=== PATIENT | male | born 1950 | race Caucasian/White ===

== ENCOUNTER 2016-05-03 18:09 | Inpatient (IN) | payer OTHER ==
[~2016-05-03] VITALS: Ht 177.8 cm; Wt 92.3 kg
--- NOTE | 2016-05-03 18:45 | ED AMS/SEIZURE/WEAK/DIZZY ---
History of Present Illness General Chief Complaint: Altered Mental Status Stated Complaint: CONFUSED, AMS Source: patient, family, old records, EMS Exam Limitations: clinical condition Vital Signs & Intake/Output Vital Signs & Intake/Output Vital Signs Date Time Temp Pulse Resp B/P Pulse O2 O2 Flow FiO2 Ox Delivery Rate 05/03 1942 Room Air 3.0L 05/03 1857 97.2 98 22 159/98 Nasal 3.0L Cannula Allergies Coded Allergies: NO KNOWN ALLERGIES (06/07/13) Reconcile Medications Aspirin (Aspirin*) 325 MG TABLET 1 TAB PO DAILY HEART/BLOOD (Reported) Lisinopril/Hydrochlorothiazide (Lisinopril-Hctz 20-25 MG Tab) 20 MG-25 MG TABLET 1 TAB PO DAILY BP (Reported) Triage Note: TRIAGE: PT BIBA FROM HOME S/P BEING FOUND CONFUSED AND DISORIENTED BY FAMILY. LAST SEEN AT [facility] AT 04:30 THIS MORNING. PER REPORT OF EMS PT HAS HX OF [facility] WITH CARDIAC STENT AND HAS BEEN NONCOMPLIANT WITH B/P MEDS BECAUSE HE DIDN'T LIKE THE WAY THEY WERE WORKING. PT ALSO REPORTED TO HAVE CELLULITIS AND NECROSIS BLE. R/A SATS REPORTED LOW 90'S WHICH IMPROVED TO 94-96% ON 4L VIA N/C. PT IS ALSO REPORTED TO BE HAVING DARK/TARRY STOOLS, UNKNOWN HOW LONG. F/S 103 FOR EMS. Triage Nurses Notes Reviewed? yes Unable To Obtain Hx Due To: patient confusion Onset: 2 days Duration: day(s):, constant, continues in ED, getting worse Timing: recent history Injury Environment: home Severity: severe No Modifying Factors: none HPI: 2 days prior to admission patient is developed increasing confusion weakness and black tarry stool. Per report he has not sought medical attention due to lack of insurance with chronic smoking previous alcohol abuse bilateral leg dermatitis and weeping. He denies fever chills nausea vomiting chest pain shortness of breath headache. Current history is unclear because auto hiker is unavailable. (PARTH GROVE MD) Past History Medical History Any Pertinent Medical History? see below for history Surgical History Surgical History: AAA repair Psychosocial History What is your primary language [place] Family History Hx Contributory? No (PARTH GROVE MD) Review of Systems Review of Systems Constitutional: Reports: see HPI, weakness. EENTM: Reports: no symptoms. Respiratory: Reports: no symptoms. Cardiovascular: Reports: no symptoms. GI: Reports: no symptoms. Genitourinary: Reports: no symptoms. Musculoskeletal: Reports: no symptoms. Skin: Reports: see HPI, rash. Neurological/Psychological: Reports: see HPI, confusion, weakness. Hematologic/Endocrine: Reports: no symptoms. Immunologic/Allergic: Reports: no symptoms. All Other Systems: Reviewed and Negative (PARTH GROVE MD) Physical Exam Physical Exam General Appearance: well developed/nourished, alert, awake, severe distress, obese Head: atraumatic, normal appearance Eyes: Bilateral: normal appearance, PERRL, EOMI. Ears, Nose, Throat: normal pharynx, normal ENT inspection Neck: normal inspection, supple, full range of motion, no midline tenderness Respiratory: chest non-tender, decreased breath sounds Cardiovascular: regular rate/rhythm, normal peripheral pulses, tachycardia, norml femoral pulses equa Peripheral Pulses: 4+ carotid (R), 4+ carotid (L), 1+ radial (R), 1+ radial (L) Gastrointestinal: normal bowel sounds, soft, non-tender, no organomegaly Back: normal inspection, normal range of motion, no vertebral tenderness Extremities: normal range of motion, pedal edema, stasis dermatitis with ulcerations Neurologic/Psych: awake, justice court judge II-XII nml as tested, motor weakness Reflexes: 2+: bicep (R), bicep (L). Skin: rash Lymphatic: no anterior cervical jean Core Measures ACS in differential dx? Yes CVA/TIA Diagnosis: No Severe Sepsis Present: No Septic Shock Present: No (PARTH GROVE MD) Progress Differential Diagnosis: arrythmia, dehydration, electrolyte imbalance, hypoglycemia, pneumonia, sepsis Plan of Care: Orders Procedure Date/time Status Nothing by Mouth 05/04 B Active LACTIC ACID 05/[address] ABD & PELVIS W/O IV CONTRAS 05/03 2002 Active Saline Lock 05/03 1949 Active Misc Message 05/03 1949 Active ED Holding Orders 05/03 1949 Active Admit to inpatient 05/03 1949 Active Vital Signs 05/03 1949 Active Code Status 05/03 1949 Active CULTURE,URINE 05/03 1850 Active URINALYSIS 05/03 185 Complete Admit to inpatient 05/03 1830 Active BLOOD CULTURE 05/03 1827 Active TROPONIN LEVEL 05/03 1827 Complete PARTIAL THROMBOPLASTIN TIME 05/03 1827 Complete PROTHROMBIN TIME 05/03 1827 Complete AMMONIA 05/03 1827 Complete LIPASE 05/03 1827 Complete LACTIC ACID 05/03 1827 Complete COMPREHENSIVE METABOLIC PANEL 05/03 1827 Complete CBC WITHOUT DIFFERENTIAL 05/03 1827 Complete AMYLASE 05/03 1827 Complete TYPE & SCREEN (NOT X-MATCH) 05/03 1827 Complete ARTERIAL BLOOD GAS (GEN) 05/03 1824 Complete EKG 05/03 1823 Active Current Medications Sig/Fidelina Start time Last Medication Dose Stop Time Status Admin Azithromycin 500 MG ONCE ONE 05/03 2015 AC (Zithromax) 05/03 2114 Sodium Chloride 250 ML (Normal Saline 0.9%) Ceftriaxone Sodium 1,000 MG ONCE ONE 05/03 2015 AC (Rocephin) 05/03 2016 Methylprednisolone 125 MG ONCE ONE 05/03 2015 AC (Solu Medrol) 05/03 2016 Sodium Chloride 1,000 ML BOLUS ONE 05/03 193 AC (Normal Saline 0.9%) 05/03 2029 Laboratory Tests 05/03/16 1855: pH 7.38, pCO2 25 L, pO2 129 H, HCO3 14 L, ABG O2 Sat (Measured) 98.0, P-50 ( Temp Corrected) YES, Carboxyhemoglobin 0.5 L, O2 Concentration % 4L, Temperature 99.1, O2 Delivery Method NC, Phlebotomy Draw Site RIGHT RADIAL 05/03/16 184: Urine Color YEL, Urine Clarity CLEAR, Urine pH 6.0, Ur Specific [place] >= 1.030 , Urine Protein >=300 H, Urine Ketones NEG, Urine Nitrite NEG, Urine Bilirubin NEG, Urine Urobilinogen 0.2, Ur Leukocyte Esterase NEG, Ur Microscopic SEDIMENT EXAMINED, Urine RBC FEW H, Urine WBC RARE, Ur Epithelial Cells RARE, Urine Hemoglobin SMALL H, Urine Glucose NEG 05/03/16 1830: Anion Gap 10, Estimated GFR 41 L, BUN/Creatinine Ratio 31.8 H, Glucose 85, Lactic Acid 1.2, Calcium 9.0, Total Bilirubin 0.8, AST 66 H, ALT 76 H, Alkaline Phosphatase 220 H, Ammonia < 9 L, Troponin I 0.04, Total Protein 6.0 L, Albumin 3.0 L, Globulin 3.0, Albumin/Globulin Ratio 1.0 L, Amylase 158 H, Lipase 799 H, PT 10.9, INR 1.04, APTT 32, CBC w Diff MAN DIFF ORDERED, RBC 5.11 , MCV 87.8, MCH 29.0, RDW 15.1 H, MPV 6.7 L, Gran % 91.3 H, Lymphocytes % 5.2 L, Monocytes % 2.9, Eosinophils % 0.1, Basophils % 0.5, Absolute Granulocytes 14.0 H, Segmented Neutrophils 90 H, Band Neutrophils 3, Absolute Lymphocytes 0.8 L, Lymphocytes 4 L, Monocytes 3, Absolute Monocytes 0.4, Absolute Eosinophils 0, Absolute Basophils 0.1, Platelet Estimate ADEQUATE, PUBS MCHC 33.0 Microbiology 05/03 1925 BLOOD: Blood Culture - RECD 05/03 1845 URINE ROUT: Urine Culture - RECD 05/03 1830 BLOOD: Blood Culture - RECD Diagnostic Imaging: Viewed by Me: Radiology Read. Discussed w/RAD: Radiology Read. Initial ED EKG: normal axis, normal intervals, normal p-waves, normal QRS complex, normal sinus rhythm Prior EKG: unchanged Rhythm Strip: sinus tachycardia Hand-Off Endorsed To: VETO CRESPO MD Endorsed Time: 1916 Pending: labs, Xray (PARTH GROVE MD) CXR Impression: atelectasis vs infiltrate... full report below. Comments: PATIENT: JOSUÉ NOYOLA PRESENT AGE: 66 PATIENT ACCOUNT NO: [id number] : 52 LOCATION: [facility] ORDERING PHYSICIAN: PARTH GROVE MD SERVICE DATE: 05/03/16 EXAM TYPE: RAD - XRY-PORTABLE CHEST XRAY EXAMINATION: XR PORTABLE CHEST CLINICAL INFORMATION: 66-year-old man with rigors and confusion. COMPARISON: None. TECHNIQUE: Portable view of the chest was obtained. FINDINGS: Streaky linear opacities at the left lung base are associated with volume loss and most likely reflect subsegmental atelectasis. Early superimposed consolidation is also possible however. The right lung is clear. There is mild cardiomegaly. There are no large pleural effusions. IMPRESSION: Nonspecific opacities at the left lung base most likely reflect atelectasis, although early consolidation could appear similarly. DICTATED BY: RONALD LOPEZ MD DATE/TIME DICTATED:05/03/161934 GARAGE DOOR SERVICE TECHNICIAN:ANUPAMA DATE/TIME TRANSCRIBED:05/03/161934 CONFIDENTIAL, DO NOT COPY WITHOUT APPROPRIATE AUTHORIZATION. <Electronically signed in Other Vendor System> SIGNED BY: JESSICA AYOUB,RONALD 05/03/161939 (ZAK AYOUB,VETO Ellis) Departure Departure Disposition: STILL A PATIENT Condition: Stable Referrals: CRYSTAL AYOUB,JARAD Morales (PCP/Family) Referred to [facility] as new patient No Departure Forms: Customer Survey General Discharge Information (PERFECTO AYOUB,PARTH) Departure Clinical Impression Primary Impression: Altered mental status Secondary Impressions: Acute hyperkalemia, COPD exacerbation, Hyponatremia syndrome, Peripheral vascular disease, Pneumonia Admission Note Spoke With: SAUD BYNUM MDPaulie Documentation of Exam: Documentation of any treatments & extenuating circumstances including Concerns Regarding Discharge (functional status, medication knowledge or non-compliance, living conditions, etc.) that warrant an admission rather than observation: pt with multiple issues: hyponatremia (sodium 118), hyperkalemia (k+ 7.3), renal failure, copd exacerbation, pvd, merits icu admission for electrolyte management. (ZAK AYOUB,VETO Ellis) Critical Care Note Critical Care Note Critical Care Time: 30-74 min (VETO CRESPO MD)
[2016-05-03] MEDS ORDERED: LISINOPRIL-HCT1 EAC1 PO (18:53)
[2016-05-03] MEDS ORDERED: ASPIRIN325 M2 PO (18:54)
[2016-05-03 19:00] LABS: ABSOLUTE BASOPHIL COUNT 0.1 /CUMM (0.0-0.2); ABSOLUTE EOSINOPHIL COUNT 0 /CUMM (0.0-0.7); ABSOLUTE LYMPH COUNT 0.8 /CUMM (1.2-3.4); ABSOLUTE MONOCYTE COUNT 0.4 /CUMM (0.10-0.60); BASOPHIL % 0.5 % (0.0-2.0); EOSINOPHIL % 0.1 % (0-5); GRANULOCYTE % 91.3 % (42.2-75.2); HEMATOCRIT 44.9 % (42-52); MEAN CORPUSCULAR VOLUME 87.8 FL (80.0-94.0); MEAN PLATELET VOLUME 6.7 FL (7.4-10.4); PLATELET COUNT 402 /CUMM (130-400); RBC DISTRIBUTION WIDTH 15.1 % (11.5-14.5); RED BLOOD CELL CT 5.11 /CUMM (4.70-6.10); WHITE BLOOD CELL COUNT 15.3 /CUMM (4.8-10.8)
[2016-05-03 19:06] LABS: PT 10.9 SEC (9.4-12.5); PTT 32 SEC (25-37)
--- NOTE | 2016-05-03 19:40 | RADIOLOGY REPORT ---
EXAMINATION: XR PORTABLE CHEST CLINICAL INFORMATION: 66-year-old man with rigors and confusion. COMPARISON: None. TECHNIQUE: Portable view of the chest was obtained. FINDINGS: Streaky linear opacities at the left lung base are associated with volume loss and most likely reflect subsegmental atelectasis. Early superimposed consolidation is also possible however. The right lung is clear. There is mild cardiomegaly. There are no large pleural effusions. IMPRESSION: Nonspecific opacities at the left lung base most likely reflect atelectasis, although early consolidation could appear similarly.
--- NOTE | 2016-05-03 21:00 | CT SCAN REPORT ---
EXAMINATION: CT ABDOMEN AND PELVIS WITHOUT CONTRAST CLINICAL INFORMATION: 66-year-old male presents for evaluation of pancreatitis. COMPARISON: CT of abdomen pelvis of 06/07/2013. TECHNIQUE: Multidetector volumetric imaging was performed from the superior aspect of the liver through the pubic symphysis. Sagittal and coronal reformatted images were obtained on the technologist's workstation. DLP: 505 mGy-cm. FINDINGS: LUNG BASES: There is centrilobular emphysema. There is hazy opacity suggestive of atelectasis in the dependent aspect of each lower lobe. Aortic valve calcifications are seen. Cardiomegaly. No pericardial or pleural effusion. LIVER, GALLBLADDER, AND BILIARY TREE: Unremarkable for a noncontrast examination. PANCREAS: Pancreas has normal attenuation on these noncontrast images. No imaging findings to suggest acute pancreatitis. No pancreatic ductal dilatation, peripancreatic edema or retroperitoneal fluid collection. SPLEEN: Unremarkable. ADRENAL GLANDS: Unremarkable. KIDNEYS AND URETERS: 1.4 cm cortical cyst at the upper pole of the right kidney. No hydronephrosis or nephrolithiasis. There is mild atrophy of the right kidney. The right kidney measures approximately 10.6 cm in length and left kidney 13.8 cm in length. The ureters are normal in caliber. BLADDER: The bladder is decompressed by a Espinoza catheter. GASTROINTESTINAL TRACT: Bowel loops are normal in size. There are scattered diverticula of the sigmoid colon without diverticulitis. No acute findings along the gastrointestinal tract. ABDOMINAL WALL: Unremarkable. LYMPH NODES: No pathologic sized lymph nodes within the abdomen or pelvis. VASCULAR: There is an aortoiliac stent graft in place. The [place] abdominal aorta measures up to 6.5 cm transverse, 6.6 cm AP. The abdominal aorta was ruptured on 06/07/2013 at which time it measured up to 9.6 cm transverse and 8.5 cm AP. There is no periaortic inflammatory change or retroperitoneal hemorrhage. PELVIC VISCERA: Prostate gland is grossly unremarkable. No pelvic free fluid. OSSEOUS STRUCTURES: Within the lumbar spine, disc degeneration is most advanced at L2-L3 where there is moderate loss of disc space, endplate sclerosis, vacuum disc phenomenon and traction osteophyte formation. No aggressive bone lesions. IMPRESSION: 1. No acute imaging findings within the abdomen or pelvis. There is no imaging evidence of pancreatitis in this patient who presents for evaluation of pancreatitis. 2. Sigmoid colon diverticulosis without diverticulitis. 3. The previously ruptured infrarenal abdominal aortic aneurysm has been treated with an aortoiliac stent graft and the [place] abdominal aorta has decreased in size compared to 06/07/2013.
--- NOTE | 2016-05-03 21:49 | Admission Certification ---
Admission Certification Certification Statement - As attending physician, I certify that at the time of - admission, based on clinical presentation, severity of - symptoms, need for further diagnostic testing and - therapeutic interventions, and risk of adverse outcomes - without in-hospital treatment, in my clinical assessment, - this patient requires an acute hospital stay for a minimum - of two nights or longer. I have also considered psychsocial - factors such as support system, advanced age, financial - issues, cognitive issues, and failed out-patient treatments, - past re-admission history, safety of patient, and lack of - compliance as applicable. Specific rationale supporting this admission is: Altered mental status, acute hyponatremia, hyperkalemia. Hypoxic respiratory failure 2/2 community acquired pneumonia and COPD. Bilateral LE wounds/ necrosis needs Vascular and Wound consults.
--- NOTE | 2016-05-03 22:51 | History & Physical ---
LEOLA BRAND 05/03/16 2217: General Information and HPI Source of Information: patient, family Exam Limitations: no limitations History of Present Illness: He is 66-year-old man with past medical history of hypertension, COPD and abdominal aortic aneurysm rupture status post repair and stent placement at [facility] in 2013 BIBA from home after his son noticed that he is looking pale and confused. Patient lives with his son who last seen him oriented at 4 AM before going to his work. According to son when he came back from his job at 4 PM he found him confused. Patient denies any dizziness, lightheadedness, fall, chest pain or discomfort, shortness of breath, palpitations, nausea, vomiting, abdominal pain, diarrhea, constipation, any urinary symptoms. The son noticed black tarry stools for the last 3 days. No history of weight loss. Patient is very noncompliant with his medications. He only sees his PCP Dr. Turner and lost saw him 5 months ago per son. He doesn't see any specialist as an outpatient. He has not been taking any medication for last 3 months. Normally he walks with walker at home. There is nobody at home to help him when son Leaves for his work. According to son he did not eat or drink whole day today. He is current every day smoker. Smokes less than half pack per day for last 40 years. He used to drink 6 packs on weekends and quit 4-5 months ago. Allergies/Medications Allergies: Coded Allergies: NO KNOWN ALLERGIES (06/07/13) Home Med list Aspirin (Aspirin*) 325 MG TABLET 1 TAB PO DAILY HEART/BLOOD (Reported) Lisinopril/Hydrochlorothiazide (Lisinopril-Hctz 20-25 MG Tab) 20 MG-25 MG TABLET 1 TAB PO DAILY BP (Reported) Compliance With Home Meds: POOR Past History Travel History Traveled to [place] past 21 day No Medical History Cardiovascular: HYPERTENSION Respiratory: COPD Surgical History Surgical History: AAA repair Past Family/Social History Family History Relations & Conditions if any FATHER ( of [place]). MOTHER (leukemia). Psychosocial History Where do you live? Home Who Do You Live With? child Services at Home: None Primary Language: Grenadian Smoking Status: Current Everyday Smoker ETOH Use: denies use Illicit Drug Use: denies illicit drug use Living Will? no Functional Ability ADLs Independent: dressing, eating, toileting, bathing. Ambulation: walker IADLs Independent: telephone. Needs Assist: shopping, housework, food prep, transportation. Review of Systems Review of Systems Constitutional: Reports: see HPI. Exam & Diagnostic Data Last 24 Hrs of Vital Signs/I&O Vital Signs Date Time Temp Pulse Resp B/P Pulse O2 O2 Flow FiO2 Ox Delivery Rate 05/03 2311 92 20 129/86 98 Nasal 3.0L Cannula 05/03 2149 98 Nasal 3.0L Cannula 05/03 2142 98 20 122/75 98 Nasal 3.0L Cannula 05/03 2033 97.2 93 20 143/79 Nasal 3.0L Cannula 05/03 1942 Room Air 3.0L 05/03 1857 97.2 98 22 159/98 Nasal 3.0L Cannula Physical Exam General Appearance Alert, Oriented X3, Cooperative, No Acute Distress HEENT dry mucous membranes Neck No JVD Cardiovascular Regular Rate, grade 1 systolic murmur Lungs decreased air entry Abdomen Normal Bowel Sounds, Soft, No Tenderness Neurological Normal Speech, Strength at 5/5 X4 Ext Extremities B/L LE swelling with redness, oozing necrotic wounds, non tender, pulses implapable Last 24 Hrs of Labs/Abhay: Laboratory Tests 05/03/162140: CBC w Diff Cancelled, WBC Cancelled, RBC Cancelled, Hgb Cancelled, Hct Cancelled , MCV Cancelled, MCH Cancelled, RDW Cancelled, Plt Count Cancelled, MPV Cancelled, PUBS MCHC Cancelled 05/03/161854: pH 7.38, pCO2 25 L, pO2 129 H, HCO3 14 L, ABG O2 Sat (Measured) 98.0, P-50 ( Temp Corrected) YES, Carboxyhemoglobin 0.5 L, O2 Concentration % 4L, Temperature 99.1, O2 Delivery Method NC, Phlebotomy Draw Site RIGHT RADIAL 05/03/161844: Urine Color YEL, Urine Clarity CLEAR, Urine pH 6.0, Ur Specific [place] >= 1.030 , Urine Protein >=300 H, Urine Ketones NEG, Urine Nitrite NEG, Urine Bilirubin NEG, Urine Urobilinogen 0.2, Ur Leukocyte Esterase NEG, Ur Microscopic SEDIMENT EXAMINED, Urine RBC FEW H, Urine WBC RARE, Ur Epithelial Cells RARE, Urine Hemoglobin SMALL H, Urine Glucose NEG 05/03/161844: Urine Opiates Screen < 100.00, Methadone Screen < 40, Barbiturate Screen < 60, Ur Phencyclidine Scrn < 6.00, Amphetamines Screen < 100, U Benzodiazepines Scrn < 85, Urine Cocaine Screen < 50, Urine Cannabis Screen < 5.00, Urine Osmolality 562, Ur Random Creatinine 105.5, Ur Random Sodium < 5 L, Ur Random Potassium 76.7, Fraction Sodium Excret ND 05/03/161829: Anion Gap 10, Estimated GFR 41 L, BUN/Creatinine Ratio 31.8 H, Glucose 85, Serum Osmolality 281 L, Lactic Acid 1.2, Calcium 9.0, Total Bilirubin 0.8, AST 66 H, ALT 76 H, Alkaline Phosphatase 220 H, Ammonia < 9 L, Troponin I 0.04, Total Protein 6.0 L, Albumin 3.0 L, Globulin 3.0, Albumin/Globulin Ratio 1.0 L, Amylase 158 H, Lipase 799 H, PT 10.9, INR 1.04, APTT 32, CBC w Diff MAN DIFF ORDERED, RBC 5.11, MCV 87.8, MCH 29.0, RDW 15.1 H, MPV 6.7 L, Gran % 91.3 H, Lymphocytes % 5.2 L, Monocytes % 2.9, Eosinophils % 0.1, Basophils % 0.5, Absolute Granulocytes 14.0 H, Segmented Neutrophils 90 H, Band Neutrophils 3, Absolute Lymphocytes 0.8 L, Lymphocytes 4 L, Monocytes 3, Absolute Monocytes 0.4, Absolute Eosinophils 0, Absolute Basophils 0.1, Platelet Estimate ADEQUATE, PUBS MCHC 33.0, Acetaminophen < 10.0 L, Serum Alcohol < 10.0 Microbiology 05/03 2300 LOWER RESP: Respiratory Culture - ORD 05/03 2300 LOWER RESP: Gram Stain - ORD 05/03 2250 UPPER RESP: Surveillance Culture - ORD 05/03 2250 GI: Surveillance Culture - ORD 05/03 1925 BLOOD: Blood Culture - RECD 05/03 1845 URINE ROUT: Urine Culture - RECD 05/03 1830 BLOOD: Blood Culture - RECD Diagnostic Data EKG Results Normal sinus rhythm with heart rate 93. No acute ST-T wave changes. QTC 493 Assessment/Plan Assessment: His 66-year-old man with past medical history of hypertension and abdominal aortic aneurysm rupture status post repair and stent placement at [facility] in 2013 BIBA from home after his son noticed that he is looking pale and confused. Upon admission his temperature was 97.2, respiratory rate 22, heart rate 98, blood pressure 159/98 and oxygen saturation was in low 90s on room air and he was put on 4 L of nasal cannula. Oxygen saturation with oxygen was 94-96%. He was found to have WBC count 15.3, sodium 118, potassium 7.2, BUN 54, creatinine 1.7, AST 66, ALT 76, alkaline phosphatase 220, lipase 799, amylase 158. ABG showed pH 7.38, PCO2 25 and bicarbonate 14, oxygen saturation 98% on 4 L. Normal coags and negative U tox. UA was normal. Chest x-ray showed nonspecific opacities at the left lung base. CT abdomen and pelvis did not show any evidence of acute pancreatitis. CT chest, head CT and right upper quadrant ultrasound pending In ER he got dextrose 50%, 10 units of insulin, calcium gluconate, Kayexalate, 2 L of normal saline bolus, ceftriaxone, azithromycin, Solu-Medrol and vancomycin He was found to have guaiac-positive stool. Problem list 1. Altered mental status secondary to ongoing infection, bilateral lower extremity cellulitis and questionable pneumonia, and hyponatremia 2. Hyponatremia, sodium 118, most likely secondary to dehydration and poor oral intake 3. Severe hyperkalemia, potassium 7.2 4. Black tarry heme-positive stools with stable H&H right now 5. Transaminitis of unknown etiology 6. Bilateral lower extremity swelling and redness with necrotic oozing wounds, non tender most likely secondary to severe peripheral vascular disease. Swelling could be because of chronic kidney disease and proteinuria. ? Element of heart failure (no previous records). Will also treat for cellulitis as is evident pussy discharge. 7. History of COPD not on supplemental oxygen at home 8. Acute on chronic kidney disease secondary to dehydration and poor oral intake Plan We will admit patient in ICU. He is alert awake and oriented right now. We will continue D5 half-normal saline at rate of 100 mL per hour. We'll monitor sodium closely. For hyperkalemia he has already been given dextrose plus insulin, calcium gluconate and Kayexalate. We will monitor her potassium levels closely. No changes on EKG so far. Will watch for any abnormal rhythms. Serial EKGs and troponins. Echocardiogram. We will continue supplemental oxygen. Will try to keep oxygen saturation more than 92%. TRC nebs. Incentive spirometry. He does not look like in COPD exacerbation. Will treat him for pneumonia as there are nonspecific opacities at the left lung base. Will do CT chest without contrast to better see any lung pathology. Questionable PE. Consider bilateral lower extremity Doppler ultrasound and VQ scan. For black tarry stools I spoke to Dr. Valles. He recommended to keep patient nothing by mouth and CBC monitoring. He will see patient tomorrow. Will avoid all NSAIDs. Will start patient on IV Protonix 40 mg daily. H&H is stable right now. Will start patient on antibiotics for bilateral lower extremities cellulitis. Wound consult in a.m. Suspicion for severe peripheral vascular disease. Will call vascular consult in a.m. We will monitor kidney functions and avoid nephrotoxins. Will follow-up CT head, CT chest and right upper quadrant ultrasound. Subcutaneous heparin for DVT prophylaxis. Will DC heparin if hematocrit drops. DNR/DNI As Ranked By This Provider Problem List: 1. Hyponatremia syndrome 2. Acute hyperkalemia 3. Pneumonia 4. Peripheral vascular disease Core Measures/Miscellaneous Acute Coronary Syndrome ACS Diagnosis: No Cerebrovascular Accident CVA/TIA Diagnosis: No Congestive Heart Failure CHF Diagnosis: No Venous Thromboembolism VTE Risk Factors: Acute medical illness, Age > 40, Smoking VTE Prophylaxis Ordered Inpt: [facility] prophylaxis d/t: No contraindications No VTE Pharm Prophylaxis d/t: No contraindications VTE Diagnosis: No VTE Type: NONE VTE Confirmed by (Test): NONE Severe Sepsis Severe Sepsis Present: No Septic Shock Septic Shock Present: No Miscellaneous Documentation Attending Case Discussed With: BETTYE BYNUM MD Primary Care Physician: JARAD ROJAS MD Patient sees these Specialists none Level of Patient Care: Critical Care (CRI) Consults Needed: Consulting Specialty: Gastroenterology Consulting Physician: Dr. Valles Reason for Consult: black tarry stools WILL BYNUM MD 05/03/16 2250: Attending Review Statement Attending Statement Attending Statement: examined this patient, discuss w/resident/PA/RAILWAY ENGINEER, agreed w/resident/PA/RAILWAY ENGINEER, discussed with family Attending Assessment/Plan: 66 yo M smoker with h/o HTN, AAA s/p stent (2013), CKD stage 3A, is here for acute onset confusion, weakness, pallor and 3-day h/o black/tarry stools. Patient's son provides history. Last seen normal at 4 AM before son left for work. Patient does not eat or drink while his son is away at work. Patient denies s/o nausea, vomiting, heartburn or abdominal pain. No excessive use of NSAIDs. No h/o EGD or colonoscopy, patient rarely if ever follows up with PCP Dr. Rojas. Patient does not like to take meds and he stopped taking his BP meds for over 3 months. Previous h/o alcohol use (6 packs beer on weekends), no h/o DT's or seizures. Son reports patient quit drinking 4 months back. Denies chest pain, dyspnea, palpitations, productive cough, or urinary s/s. On questioning about b/l lower extremity necrotic lesions, son reports this is going on for past 3 weeks. It started with LE swelling, followed by blisters, erythema to which patient applied topical antibiotic cream but did not see a physician. Family is oblivious of patient's current condition. Vitals: sats 90-91 on RA --> 94-96% on 3L, patient had cyanotic finger tips on arrival to ER. HR 92-98, BP 143/79, afebrile. Exam: elderly, unkempt, ill- looking patient in mild distress, very dry mucous membranes. Neck supple. Chest b/l decreased air entry with scattered rhonchi left base, Heart S1S2 regular, systolic murmur+, Abd soft, distended, no tenderness, Neuo grossly intact, LE: b /l LE erythematous, large areas of necrotic/eschar tissues scabbed over the anterior surface, tender to touch, pulses not palpable due to edema. Back: stage 2 ulcer on left gluteal fold. Labs: WBC 15.3, H/H 14.8/44.9, Na 118, K 7.2, bicarb 20, BUN 54, creat 1.7 ( baseline 1.5), glucose 85, lactic acid 1.2, AST 66, ALT 76, Alk phos 220, trop 0.04, albumin 3.0, lipase 799, amylase 158. Urine clear, Utox neg. AB.38/25/ 129/14 on 4L. CXR: nonspecific opacities left lung base atelectasis vs. early consolidation. CT abd/pelvis: no pancreatic changes, sigmoid diverticulosis. EKG : SR with RBBB and LAFB, prolonged Qtc interval. Meds: aspirin, lisinopril-HCTZ. 1. Altered mental status, acute confusion in the setting of acute hyponatremia ( 118) vs. rule out infection (pneumonia, pancreatitis vs. LE cellulitis with ?PVD / chronic venous stasis). ICU admit, neurochecks, NPO, check serum osmolality, urine osmolality and urine lytes. IV fluids @ 100/hr, recheck sodium Q4 hourly. If sodium persistently low, consult Nephro and possible need for 3% saline. I don't think patient has pancreatitis, lipase is not 3 times upper limit of normal, patient denies epigastric abdominal pain, no tenderness on exam and CT shows no peripancreatic changes. There is a possibility of pneumonia on CXR, but patient denies cough/phlegm/fevers. He is requiring 3L oxygen via NC. Will panculture, give TRC nebs/ IST, check urine legionella and strep antigen, received IV ceftriaxone and azithro for possible CAP. Obtain CT chest w/o contrast to better assess lung parenchyma. One dose of Vancomycin given for possible MRSA coverage. His bilateral lower extremity wounds could be secondary to chronic venous stasis and severe PVD. Bilateral LE cellulitis seems less likely. Will elevate LE, obtain Wound and Vascular consult in AM. Will obtain LE arterial and venous dopplers in AM. 2. Hypoxia 2/2 possible CAP vs. COPD but not in exacerbation. Received steroids in ER, will hold off further steroids. PE is a possibility and may need to be ruled out if his respiratory status worsens. Smoking cessation counseling, nicotine patch. Panculture. Chest CT s/o chronic emphysema and fibrosis. Mediastinal LN ?lymphoma or metastatic disease. Esophageal wall thickening with debris. Hold off further antibiotics. Needs Pulm/Critical care consult (Dr. Bro) and eventual Oncology consult. 3. Hyperkalemia with acute on CKD with normal AG metabolic acidosis. Received insulin-dextrose, calcium gluconate and kayexalate in ER, check BEP Q4. Continue IV hydration. Hold lisinopril - HCTZ. Serial EKG and troponin to rule out ACS. Echo. Check TSH, free T4, B12, folic acid. 4. Transaminitis of unclear etiology. Check hep panel, tylenol levels and HIV. RUQ ultrasound in AM. H/o alcohol dependence until few months ago, monitor CIWA protocol. 5. Black tarry stools, guaiac positive likely upper GI bleed. Monitor H and H, CBC Q12, IV PPI, NPO, guaiac all stools, avoid NSAIDs, keep Hb > 8.0. GI consulted (Dr. Valles aware). Hold aspirin. DVT ppx Alps. DNR/I. 1AM: Patient has hypovolemic, hyponatremia with low serum osmolality 2/2 poor PO intake-dehydration. Repeat BEP showed Na 116 (dropped from 118). However , patient was receiving D5 1/2NS instead of D5NS or NS. Resident discussed with Dr. Hill (Nephro), fluids changed to NS @ 100/hr recheck BEP @ 5 AM. If persistently low, will consider 3% NS. TTS > 45 mins
[2016-05-04] VITALS (12 sets, daily range): BP systolic 118–148; BP diastolic 67–88
--- NOTE | 2016-05-04 00:43 | CT SCAN REPORT ---
EXAMINATION: CT HEAD WITHOUT CONTRAST CLINICAL INFORMATION: Confusion. Question stroke. COMPARISON: None. TECHNIQUE: Contiguous axial imaging was performed from the skull base to vertex without intravenous administration of contrast. DLP: 600 mGy-cm. FINDINGS: Limitation due to motion degradation. There is no evidence of acute intracranial hemorrhage or territorial infarction. No abnormal mass effect or midline shift is seen. Mathew to white matter differentiation is well preserved. No extra-axial fluid collections are identified. The ventricles are normal in size. There is no abnormal attenuation within the brain parenchyma. The osseous structures and soft tissues are normal. Right maxillary sinusitis. IMPRESSION: Limited exam. No definite acute infarct or hemorrhage. Consider follow-up as warranted clinically.
--- NOTE | 2016-05-04 03:17 | CT SCAN REPORT ---
EXAMINATION: CT CHEST WITHOUT CONTRAST CLINICAL INFORMATION: COPD. Shortness of breath. COMPARISON: Exam of same day chest radiograph TECHNIQUE: Multidetector volumetric CT imaging of the chest was done. Axial MIP volume rendering provided. Sagittal and coronal reformatted images were obtained. DLP: 714 mGy-cm. FINDINGS: BOARDER HAND: Stable from recent radiograph LUNGS: Advanced emphysema with hyperinflation. There are some cystic changes noted peripherally within both upper lobes and minor dependent atelectasis but no infiltrate or mass lesion is appreciated. Appearance on recent radiographs can be attributed to chronic parenchymal disease. No discrete nodule. MEDIASTINUM: Prominent lymph nodes largest measuring up to 17 mm short axis the level of the alisa. Similar sized subcarinal lymph nodes. No bulky hilar lesions. Saber tooth appearance of the trachea consistent with COPD. Esophagus demonstrates a circumferentially thick-walled appearance with debris noted. PLEURA: There is no pleural effusion. No pleural mass or thickening. AXILLA: No lymphadenopathy. UPPER ABDOMEN: Unremarkable. OSSEOUS STRUCTURES: Unremarkable. IMPRESSION: No infiltrate. Findings of chronic emphysema and fibrosis. Pathologically enlarged mediastinal lymph nodes. Differential diagnosis includes potentially aggressive lesions including lymphoma or metastatic disease. Granulomatous disease can also appear this way. Esophageal wall thickening and debris within the esophagus as above. Consider endoscopy or esophagram for further evaluation.
[2016-05-04 05:52] LABS: ABSOLUTE BASOPHIL COUNT 0 /CUMM (0.0-0.2); ABSOLUTE EOSINOPHIL COUNT 0 /CUMM (0.0-0.7); ABSOLUTE GRANULOCYTE CT 12.5 /CUMM (1.4-6.5); ABSOLUTE LYMPH COUNT 0.5 /CUMM (1.2-3.4); ABSOLUTE MONOCYTE COUNT 0.1 /CUMM (0.10-0.60); BASOPHIL % 0 % (0.0-2.0); EOSINOPHIL % 0.1 % (0-5); MEAN CORPUSCULAR HGB 29.3 PG (27.0-31.0); MEAN CORPUSCULAR HGB CONC 33.4 G/DL (33.0-37.0); MEAN CORPUSCULAR VOLUME 87.8 FL (80.0-94.0); MEAN PLATELET VOLUME 6.6 FL (7.4-10.4); RBC DISTRIBUTION WIDTH 15.1 % (11.5-14.5); RED BLOOD CELL CT 4.03 /CUMM (4.70-6.10); WHITE BLOOD CELL COUNT 13.1 /CUMM (4.8-10.8)
[2016-05-04 06:15] LABS: GRANULOCYTE % 95.5 % (42.2-75.2); HEMATOCRIT 35.4 % (42-52); PLATELET COUNT 334 /CUMM (130-400)
--- NOTE | 2016-05-04 07:47 | Cons- Gastroenterology ---
General Information and HPI Consulting Request Date of Consult: 05/04/16 Requested By: MISA AYOUB,BETTYE Reason for Consult: Melena, decreased Hgb, abnormal ct scan Source of Information: patient, family, old records Exam Limitations: poor historian History of Present Illness: Mr. Mercado is a 66 year old male with multiple medical problems including COPD, HTN and s/p AAA rupture and repair by stent placement in 2013 who presented to last night after being brought in last night by his family with an altered mental status. The pts son found him confused last night and reports that for the past 3 days he has been having black tarry stools. There are no reports of any abdominal pain, nausea, vomiting, heartburn, chest pain, shortness of breath, lightheadedness or any bright red blood per rectum. The son was not able to say how many black tarry stools he has been having. He was found to be hyponatremic and hyperkalemic on admission lab work for which he was given insulin with d50, 60mL of kayexelate and calcium gluconate. He was also given IV solumedrol, IV antibiotics and had a ct scan that was negative for any acute intra-abdominal process. He was noted to have 'caked on stool' on his rectum per nursing notes in the ED, but there is no description of the color. On arrival to the ER he was incontinent of liquid, black stool as described by the house staff. Overnight he has remained hemodynamically stable and he has not had any further bowel movements since admission. His potassium has improved this morning, but he remains hyponatremic. His mental status has improved this am and he denies any recent abdominal pain, vomiting, heartburn or dysphagia. He also notes that while he has had intermittent black stools this has been an issue with him for 'quite some time'. Allergies/Medications Allergies: Coded Allergies: NO KNOWN ALLERGIES (06/07/13) Home Med List: Aspirin (Aspirin*) 325 MG TABLET 1 TAB PO DAILY HEART/BLOOD (Reported) Lisinopril/Hydrochlorothiazide (Lisinopril-Hctz 20-25 MG Tab) 20 MG-25 MG TABLET 1 TAB PO DAILY BP (Reported) Current Medications: Current Medications Sig/Fidelina Start time Last Medication Dose Route Stop Time Status Admin Albuterol Sulfate 3 ML Q4H PRN 05/03 2145 AC INH Azithromycin 500 MG ONCE ONE 05/03 2015 DC 05/03 Sodium Chloride 250 ML IV 05/03 Calcium Gluconate 0 .STK-MED ONE 05/03 2041 DC IV Calcium Gluconate 1 GM ONCE ONE 05/03 2030 DC 05/03 Sodium Chloride 100 ML IV 05/03 Ceftriaxone Sodium 0 .STK-MED ONE 05/03 2123 DC .ROUTE Ceftriaxone Sodium 1,000 MG ONCE ONE 05/03 2015 DC 05/03 IV 05/03 Dextrose 25 GM ONCE ONE 05/03 2115 DC 05/03 IV 05/03 Dextrose 25 GM ONCE ONE 05/03 1930 DC 05/03 IV 05/03 Dextrose/Sodium 1,000 ML .Q10H 05/03 2145 DC 05/03 Chloride IV 222 Heparin Sodium 5,000 UNIT Q8 05/03 2200 AC 05/04 (Porcine) SC 0700 Insulin Human Regular 10 UNITS ONCE ONE 05/03 1930 DC 05/03 IV 05/03 Lorazepam 0 Q1P PRN 05/04 013 DC IV Magnesium Sulfate 1 GM ONCE ONE 05/04 0930 AC N/A 1 UNIT IV 05/04 1129 Magnesium Sulfate 1 GM ONCE ONE 05/04 0730 AC N/A 1 UNIT IV 05/04 0929 Methylprednisolone 0 .STK-MED ONE 05/03 2040 DC .ROUTE Methylprednisolone 125 MG ONCE ONE 05/03 2015 DC 05/03 IV 05/03 Pantoprazole Sodium 40 MG DAILY 05/04 1000 DC IV Pantoprazole Sodium 40 MG DAILY 05/03 2245 AC 05/04 IV 0049 Pantoprazole Sodium 0 .STK-MED ONE 05/03 2233 DC IV Sodium Chloride 1,000 ML Q10H 05/04 0130 AC 05/04 IV 0144 Sodium Chloride 1,000 ML BOLUS ONE 05/03 1930 DC 05/03 IV 05/03 Sodium Chloride 1,000 ML BOLUS ONE 05/03 1930 DC 05/03 IV 05/03 Sodium Polystyrene 0 .STK-MED ONE 05/03 1940 DC Sulfonate .ROUTE Sodium Polystyrene 60 ML ONCE ONE 05/03 1930 DC 05/03 Sulfonate PO 05/03 Vancomycin HCl 1,000 MG ONCE ONE 05/03 2145 DC 05/04 Sodium Chloride 250 ML IV 05/03 2244 0049 Past History Travel History Traveled to [place] past 21 day No Medical History Neurological: NONE EENT: NONE Cardiovascular: NSTEMI, HYPERTENSION AAA REPAIR CARDIAC CATH C/ STENTS Respiratory: COPD Gastrointestinal: NONE Hepatic: NONE Renal: NONE Musculoskeletal: CELLULITIS Psychiatric: NONE Endocrine: NONE Blood Disorders: NONE 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 MOTHER (leukemia). Psychosocial History Where Do You Live? Home Who Do You Live With? child Services at Home: None Primary Language: Frisian Smoking Status: Current Everyday Smoker ETOH Use: denies use Illicit Drug Use: denies illicit drug use Living Will? no Functional Ability ADLs Independent: dressing, eating, toileting, bathing. Ambulation: walker IADLs Independent: telephone. Needs Assist: shopping, housework, food prep, transportation. Review of Systems Review of Systems Constitutional: Reports: malaise. Denies: weakness, unexplained weight loss. EENTM: Denies: no symptoms. Cardiovascular: Denies: no symptoms. Respiratory: Denies: no symptoms. GI: Denies: no symptoms. Genitourinary: Denies: no symptoms. Musculoskeletal: Denies: no symptoms. Skin: Denies: no symptoms. Neurological/Psychological: Reports: confusion. Hematologic/Endocrine: Denies: no symptoms. Immunologic/Allergic: Denies: no symptoms. All Other Systems: Reviewed and Negative Exam & Diagnostic Data Vital Signs and I&O Vital Signs Date Time Temp Pulse Resp B/P Pulse O2 O2 Flow FiO2 Ox Delivery Rate 05/04 0600 98.3 92 20 142/74 05/04 0400 98.3 94 20 144/82 05/04 0400 97 Nasal 1.0L Cannula 05/04 0200 97.6 92 20 147/86 05/04 0000 97 Nasal 3.0L Cannula 05/04 0000 97.6 90 18 128/84 97 Nasal 3.0L Cannula 05/03 2311 92 20 129/86 98 Nasal 3.0L Cannula 05/03 2149 98 Nasal 3.0L Cannula 05/03 2142 98 20 122/75 98 Nasal 3.0L Cannula 05/03 2033 97.2 93 20 143/79 Nasal 3.0L Cannula 05/03 1942 Room Air 3.0L 05/03 1857 97.2 98 22 159/98 Nasal 3.0L Cannula Intake & Output 05/04 040 Intake Total 797 1000 Output Total 350 1150 Balance 447 -150 Intake, IV 797 1000 Intake, Oral 0 Number 0 Bowel Movements Output, Urine 350 1150 Patient 203 lb Weight Physical Exam General Appearance: well developed/nourished, no apparent distress, comfortable Head: atraumatic, normal appearance Eyes: Bilateral: normal appearance. Ears, Nose, Throat: normal pharynx, normal ENT inspection, dry mucous membranes Neck: normal inspection, supple Respiratory: normal breath sounds, chest non-tender Cardiovascular: regular rate/rhythm Gastrointestinal: normal bowel sounds, soft, non-tender, no organomegaly Rectal: deferred Back: normal inspection Extremities: normal inspection, no edema Neurologic/Psych: no motor/sensory deficits, awake, alert, oriented x 3 Skin: intact, normal color Results Pertinent Lab Results: Laboratory Tests 05/04 05/04 05/04 0440 0440 0020 Chemistry Sodium (137 - 145 mmol/L) Cancelled 119 *L Potassium (3.5 - 5.1 mmol/L) Cancelled 5.2 H Chloride (98 - 107 mmol/L) Cancelled 95 L Carbon Dioxide (22 - 30 mmol/L) Cancelled 18 L Anion Gap (5 - 16) Cancelled 6 BUN (9 - 20 mg/dL) Cancelled 41 H Creatinine (0.7 - 1.2 mg/dL) Cancelled 1.4 H Estimated GFR (>60 ml/min) 51 L Glucose (65 - 99 mg/dL) Cancelled 87 Calcium (8.4 - 10.2 mg/dL) Cancelled 8.2 L Phosphorus (2.5 - 4.5 mg/dL) Cancelled 5.1 H Magnesium (1.6 - 2.3 mg/dL) Cancelled 1.8 1.8 Total Bilirubin (0.2 - 1.3 mg/dL) Cancelled 0.6 AST (17 - 59 U/L) Cancelled 52 ALT (21 - 72 U/L) Cancelled 59 Troponin I (<0.11 ng/ml) 0.04 0.04 Albumin (3.5 - 5.0 g/dL) Cancelled 2.1 L Hematology CBC w Diff NO MAN DIFF REQ WBC (4.8 - 10.8 /CUMM) 13.1 H RBC (4.70 - 6.10 /CUMM) 4.03 L Hgb (14.0 - 18.0 G/DL) 11.8 L Hct (42 - 52 %) 35.4 L MCV (80.0 - 94.0 FL) 87.8 MCH (27.0 - 31.0 PG) 29.3 RDW (11.5 - 14.5 %) 15.1 H Plt Count (130 - 400 /CUMM) 334 MPV (7.4 - 10.4 FL) 6.6 L Gran % (42.2 - 75.2 %) 95.5 H Lymphocytes % (20.5 - 51.1 %) 3.5 L Monocytes % (1.7 - 9.3 %) 0.9 L Eosinophils % (0 - 5 %) 0.1 Basophils % (0.0 - 2.0 %) 0 L Absolute Granulocytes (1.4 - 6.5 /CUMM) 12.5 H Absolute Lymphocytes (1.2 - 3.4 /CUMM) 0.5 L Absolute Monocytes (0.10 - 0.60 /CUMM) 0.1 L Absolute Eosinophils (0.0 - 0.7 /CUMM) 0 Absolute Basophils (0.0 - 0.2 /CUMM) 0 PUBS MCHC (33.0 - 37.0 G/DL) 33.4 Serology Hepatitis A IgM Ab (NONREACTIVE) Pending Hep Bs Antigen (NONREACTIVE) Pending Hep B Core IgM Ab Conf (NONREACTIVE) Pending Hepatitis C Antibody (NONREACTIVE) Pending HIV 1&2 Ab Western Blot (NONREACTIVE) NONREACTIVE 05/04 05/04 05/03 05/03 0020 0020 2142 1546 Blood Gas pH (7.35 - 7.45 PH) 7.38 pCO2 (35 - 45 TORR) 25 L pO2 (80 - 100 TORR) 129 H HCO3 (21 - 28 MEQ/L) 14 L ABG O2 Sat (Measured) (>96.0 %) 98.0 P-50 (Temp Corrected) YES Carboxyhemoglobin (1.5 - 5.0 %) 0.5 L O2 Concentration % 4L Temperature (97.0 - 100.0 FARH) 99.1 O2 Delivery Method NC Chemistry Sodium (137 - 145 mmol/L) 116 *L Potassium (3.5 - 5.1 mmol/L) 5.3 H Chloride (98 - 107 mmol/L) 92 L Carbon Dioxide (22 - 30 mmol/L) 16 L Anion Gap (5 - 16) 8 BUN (9 - 20 mg/dL) 45 H Creatinine (0.7 - 1.2 mg/dL) 1.4 H Estimated GFR (>60 ml/min) 51 L BUN/Creatinine Ratio (7 - 25 %) 32.1 H Lactic Acid (0.7 - 2.1 mmol/L) 1.0 Hematology CBC w Diff Cancelled WBC Cancelled RBC Cancelled Hgb Cancelled Hct Cancelled MCV Cancelled MCH Cancelled RDW Cancelled Plt Count Cancelled MPV Cancelled PUBS MCHC Cancelled Miscellaneous Phlebotomy Draw Site RIGHT RADIAL 05/03 05/03 [id number] 1847 Toxicology Urine Opiates Screen (>2000 NG/ML) < 100.00 Methadone Screen (>300 NG/ML) < 40 Barbiturate Screen (>200 NG/ML) < 60 Ur Phencyclidine Scrn (>25 NG/ML) < 6.00 Amphetamines Screen (>1000 NG/ML) < 100 U Benzodiazepines Scrn (>200 NG/ML) < 85 Urine Cocaine Screen (>300 NG/ML) < 50 Urine Cannabis Screen (>50 NG/ML) < 5.00 Urines Urine Color (YEL,AMB,STR) YEL Urine Clarity (CLEAR) CLEAR Urine pH (5.0 - 8.0) 6.0 Ur Specific [place] (1.001 - 1.035) >= 1.030 Urine Protein (NEG,<30 MG/DL) >=300 H Urine Ketones (NEG) NEG Urine Nitrite (NEG) NEG Urine Bilirubin (NEG) NEG Urine Urobilinogen (0.1 - 1.0 EU/dl) 0.2 Ur Leukocyte Esterase (NEG) NEG Ur Microscopic SEDIMENT EXAMINED Urine RBC (0 - 5 /HPF) FEW H Urine WBC (0 - 2 /HPF) RARE Ur Epithelial Cells (NONE,FEW) RARE Urine Hemoglobin (NEG) SMALL H Urine Osmolality (300 - 1000 MOSM/KG) 562 Ur Random Creatinine (mg/dL) 105.5 Ur Random Sodium (30 - 90 mmol/L) < 5 L Ur Random Potassium (mmol/L) 76.7 Fraction Sodium Excret (<1% %) ND Urine Glucose (N MG/DL) NEG 05/03 1830 Chemistry Sodium (137 - 145 mmol/L) 118 *L Potassium (3.5 - 5.1 mmol/L) 7.2 *H Chloride (98 - 107 mmol/L) 88 L Carbon Dioxide (22 - 30 mmol/L) 20 L Anion Gap (5 - 16) 10 BUN (9 - 20 mg/dL) 54 H Creatinine (0.7 - 1.2 mg/dL) 1.7 H Estimated GFR (>60 ml/min) 41 L BUN/Creatinine Ratio (7 - 25 %) 31.8 H Glucose (65 - 99 mg/dL) 85 Serum Osmolality (285 - 295 MOSM/KG) 281 L Lactic Acid (0.7 - 2.1 mmol/L) 1.2 Calcium (8.4 - 10.2 mg/dL) 9.0 Total Bilirubin (0.2 - 1.3 mg/dL) 0.8 AST (17 - 59 U/L) 66 H ALT (21 - 72 U/L) 76 H Alkaline Phosphatase (< 127 U/L) 220 H Ammonia (9 - 30 umol/L) < 9 L Troponin I (<0.11 ng/ml) 0.04 Total Protein (6.3 - 8.2 g/dL) 6.0 L Albumin (3.5 - 5.0 g/dL) 3.0 L Globulin (1.9 - 4.2 gm/dL) 3.0 Albumin/Globulin Ratio (1.1 - 2.2 %) 1.0 L Amylase (30 - 110 U/L) 158 H Lipase (23 - 300 U/L) 799 H TSH (0.270 - 4.200 uIU/mL) 1.850 Free T4 (0.78 - 2.44 ng/dL) 1.18 Total T3 (0.97 - 1.69 ng/mL) 0.67 L Coagulation PT (9.4 - 12.5 SEC) 10.9 INR (0.90 - 1.17) 1.04 APTT (25 - 37 SEC) 32 Hematology CBC w Diff MAN DIFF ORDERED WBC (4.8 - 10.8 /CUMM) 15.3 H RBC (4.70 - 6.10 /CUMM) 5.11 Hgb (14.0 - 18.0 G/DL) 14.8 Hct (42 - 52 %) 44.9 MCV (80.0 - 94.0 FL) 87.8 MCH (27.0 - 31.0 PG) 29.0 RDW (11.5 - 14.5 %) 15.1 H Plt Count (130 - 400 /CUMM) 402 H MPV (7.4 - 10.4 FL) 6.7 L Gran % (42.2 - 75.2 %) 91.3 H Lymphocytes % (20.5 - 51.1 %) 5.2 L Monocytes % (1.7 - 9.3 %) 2.9 Eosinophils % (0 - 5 %) 0.1 Basophils % (0.0 - 2.0 %) 0.5 Absolute Granulocytes (1.4 - 6.5 /CUMM) 14.0 H Segmented Neutrophils (42.2 - 75.2 %) 90 H Band Neutrophils (0.0 - 5.0 %) 3 Absolute Lymphocytes (1.2 - 3.4 /CUMM) 0.8 L Lymphocytes (20.5 - 51.1 %) 4 L Monocytes (1.7 - 9.3 %) 3 Absolute Monocytes (0.10 - 0.60 /CUMM) 0.4 Absolute Eosinophils (0.0 - 0.7 /CUMM) 0 Absolute Basophils (0.0 - 0.2 /CUMM) 0.1 Platelet Estimate (ADEQUATE) ADEQUATE PUBS MCHC (33.0 - 37.0 G/DL) 33.0 Toxicology Acetaminophen (10.0 - 30.0 ug/mL) < 10.0 L Serum Alcohol (<10 MG/DL) < 10.0 Imaging/Other Studies: ct scan of abd: FINDINGS: LUNG BASES: There is centrilobular emphysema. There is hazy opacity suggestive of atelectasis in the dependent aspect of each lower lobe. Aortic valve calcifications are seen. Cardiomegaly. No pericardial or pleural effusion. LIVER, GALLBLADDER, AND BILIARY TREE: Unremarkable for a noncontrast examination. PANCREAS: Pancreas has normal attenuation on these noncontrast images. No imaging findings to suggest acute pancreatitis. No pancreatic ductal dilatation, peripancreatic edema or retroperitoneal fluid collection. SPLEEN: Unremarkable. ADRENAL GLANDS: Unremarkable. KIDNEYS AND URETERS: 1.4 cm cortical cyst at the upper pole of the right kidney. No hydronephrosis or nephrolithiasis. There is mild atrophy of the right kidney. The right kidney measures approximately 10.6 cm in length and left kidney 13.8 cm in length. The ureters are normal in caliber. BLADDER: The bladder is decompressed by a Espinoza catheter. GASTROINTESTINAL TRACT: Bowel loops are normal in size. There are scattered diverticula of the sigmoid colon without diverticulitis. No acute findings along the gastrointestinal tract. ABDOMINAL WALL: Unremarkable. LYMPH NODES: No pathologic sized lymph nodes within the abdomen or pelvis. VASCULAR: There is an aortoiliac stent graft in place. The saxman abdominal aorta measures up to 6.5 cm transverse, 6.6 cm AP. The abdominal aorta was ruptured on 06/07/2013 at which time it measured up to 9.6 cm transverse and 8.5 cm AP. There is no periaortic inflammatory change or retroperitoneal hemorrhage. PELVIC VISCERA: Prostate gland is grossly unremarkable. No pelvic free fluid. OSSEOUS STRUCTURES: Within the lumbar spine, disc degeneration is most advanced at L2-L3 where there is moderate loss of disc space, endplate sclerosis, vacuum disc phenomenon and traction osteophyte formation. No aggressive bone lesions. IMPRESSION: 1. No acute imaging findings within the abdomen or pelvis. There is no imaging evidence of pancreatitis in this patient who presents for evaluation of pancreatitis. 2. Sigmoid colon diverticulosis without diverticulitis. 3. The previously ruptured infrarenal abdominal aortic aneurysm has been treated with an aortoiliac stent graft and the saxman abdominal aorta has decreased in size compared to 06/07/2013. ct of chest: IMPRESSION: No infiltrate. Findings of chronic emphysema and fibrosis. Pathologically enlarged mediastinal lymph nodes. Differential diagnosis includes potentially aggressive lesions including lymphoma or metastatic disease. Granulomatous disease can also appear this way. Esophageal wall thickening and debris within the esophagus as above. Consider endoscopy or esophagram for further evaluation. Assessment/Plan Assessment/Recommendations: Assessment: Mr. Mercado is a 66 year old male admitted to the ICU last night with altered mental status, hyponatremia, hyperkalemia and reports of melena. His mental status has improved since admission as has his potassium and sodium although his sodium still remains low and I feel it is likely his acute mental status changes were from his electrolyte abnormalities. While the pts son notes that he has been having black stool for the past 3 days the patient himself denies this saying he has had intermittent black stools off and on and his admission hgb of 14 without an elevated BUN/Cr ratio argues against GI bleeding. He has had about a 2 gram drop in his hgb since admission which I suspect is hemodilutional as he has not had any evidence of active GI bleeding since being admitted to the ICU (no bowel movements or vomiting). As he does take asa without any GI prophylaxis it is possible he could have PUD and he could have intermittent GI bleeding from this and his ct scan of the chest also shows esophageal thickening with lymphadenopathy so it would not be unreasonable to pursue a diagnostic EGD at some point, but as he is without evidence of active ongoing gi bleeding this isn't urgent and can safely be pursued as an outpatient or at least until his sodium is corrected. Of note, he does have a moderately elevated lipase, but this is a non-specific finding and as he doesn't have any evidence of pancreatitis on his ct scan and doesn't have any symptoms consistent with pancreatitis I don't feel he has pancreatitis. He also has mildly elevated LFTs which is likely secondary to NAFLD and while he may also benefit from a diagnostic US to evaluate the increased LFTs further this also isn't urgent. Recommendations: 1. Advance diet as tolerated 2. Follow CBC q12hrs and if it remains stable then just check daily 3. Notify GI for signs of active GI bleeding 4. Continue IV protonix 40mg daily for now 5. Correction of electrolyte abnormalities as per critical care team 6. Consideration will be given for an inpatient vs outpatient EGD based on his clinical course, but this currently is not urgent. I will continue to follow this patient and make further recommendations based on his clinical course and results of increased blood work. Problem List: 1. Altered mental status Copies To: CRYSTAL AYOUB,JARAD Lugo. Consult Acknowledgment - Thank you for your consult request.
--- NOTE | 2016-05-04 08:44 | Cons- CRCU ---
See Addendum General Information and HPI Consulting Request Date of Consult: 05/04/16 Requested By: Snow Kothari MD Reason for Consult: CRCU management Source of Information: patient, family, old records, EMS Exam Limitations: no limitations History of Present Illness: He is 66-year-old man with past medical history of hypertension, COPD and abdominal aortic aneurysm rupture status post repair and stent placement at [facility] in 2013 BIBA from home after his son noticed that he is looking pale and confused. Patient lives with his son who last seen him oriented at 4 AM before going to his work. According to son when he came back from his job at 4 PM he found him confused. Patient denies any dizziness, lightheadedness, fall, chest pain or discomfort, shortness of breath, palpitations, nausea, vomiting, abdominal pain, diarrhea, constipation, any urinary symptoms. The son noticed black tarry stools for the last 3 days. No history of weight loss. Patient is very noncompliant with his medications. He only sees his PCP Dr. Turner and lost saw him 5 months ago per son. He doesn't see any specialist as an outpatient. He has not been taking any medication for last 3 months. Normally he walks with walker at home. There is nobody at home to help him when son Leaves for his work. According to son he did not eat or drink whole day today. He is current every day smoker. Smokes less than half pack per day for last 40 years. He used to drink 6 packs on weekends and quit 4-5 months ago. He is hemodynamically stable throughout the night. Received D5 half-normal saline and a single dose of vancomycin and ceftriaxone in the ED. In the morning he started on normal saline at the rate of 100 and per hour. Allergies/Medications Allergies: Coded Allergies: NO KNOWN ALLERGIES (06/07/13) Home Med List: Aspirin (Aspirin*) 325 MG TABLET 1 TAB PO DAILY HEART/BLOOD (Reported) Lisinopril/Hydrochlorothiazide (Lisinopril-Hctz 20-25 MG Tab) 20 MG-25 MG TABLET 1 TAB PO DAILY BP (Reported) Current Medications: Current Medications Sig/Fidelina Start time Last Medication Dose Route Stop Time Status Admin Albuterol Sulfate 3 ML TID 05/04 1600 AC 05/04 INH 1159 Albuterol Sulfate 3 ML Q4H PRN 05/03 2145 DC INH Atorvastatin Calcium 80 MG 1700 05/04 1700 AC 05/04 PO 1849 Azithromycin 500 MG ONCE ONE 05/03 2015 DC 05/03 Sodium Chloride 250 ML IV 05/03 2114 221 Calcium Gluconate 0 .STK-MED ONE 05/03 2041 DC IV Calcium Gluconate 1 GM ONCE ONE 05/03 2030 DC 05/03 Sodium Chloride 100 ML IV 05/03 Ceftriaxone Sodium 0 .STK-MED ONE 05/03 2123 DC .ROUTE Ceftriaxone Sodium 1,000 MG ONCE ONE 05/03 2015 DC 05/03 IV 05/03 Dextrose 25 GM ONCE ONE 05/03 2115 DC 05/03 IV 05/03 Dextrose 25 GM ONCE ONE 05/03 1930 DC 05/03 IV 05/03 193 194 Dextrose/Sodium 1,000 ML Q10H 05/04 1215 DC 05/04 Chloride IV 1215 Dextrose/Sodium 1,000 ML .Q10H 05/03 214 DC 05/03 Chloride IV 2223 Heparin Sodium 5,000 UNIT Q8 05/03 2200 AC 05/04 (Porcine) SC 1410 Insulin Human Regular 10 UNITS ONCE ONE 05/03 1930 DC 05/03 IV 05/03 1931 194 Ipratropium [place] 2.5 ML TID 05/04 1600 AC 05/04 INH 1159 Lorazepam 0 Q1P PRN 05/04 0130 DC IV Magnesium Sulfate 1 GM ONCE ONE 05/04 0930 DC 05/04 N/A 1 UNIT IV 05/04 1129 1158 Magnesium Sulfate 1 GM ONCE ONE 05/04 0730 DC 05/04 N/A 1 UNIT IV 05/04 0929 0959 Methylprednisolone 0 .STK-MED ONE 05/03 2040 DC .ROUTE Methylprednisolone 125 MG ONCE ONE 05/03 2015 DC 05/03 IV 05/03 Pantoprazole Sodium 40 MG DAILY 05/04 1000 DC IV Pantoprazole Sodium 40 MG DAILY 05/03 2245 AC 05/04 IV 1002 Pantoprazole Sodium 0 .STK-MED ONE 05/03 2233 DC IV Patient Medication 1 UNIT ONE NR 05/04 1700 DC Teaching ED 05/04 1730 Sodium Chloride 3,000 MG TID 05/04 2200 UNVr PO Sodium Chloride 1,000 ML Q10H 05/04 1430 DC 05/04 IV 1458 Sodium Chloride 1,000 ML Q10H 05/04 0130 DC 05/04 IV 0144 Sodium Chloride 1,000 ML BOLUS ONE 05/03 1930 DC 05/03 IV 05/03 Sodium Chloride 1,000 ML BOLUS ONE 05/03 1930 DC 05/03 IV 05/03 Sodium Polystyrene 0 .STK-MED ONE 05/03 1940 DC Sulfonate .ROUTE Sodium Polystyrene 60 ML ONCE ONE 05/03 1930 DC 05/03 Sulfonate PO 05/03 Vancomycin HCl 1,000 MG ONCE ONE 05/03 2145 DC 05/04 Sodium Chloride 250 ML IV 05/03 2244 004 Review of Systems Review of Systems Constitutional: Reports: see HPI, malaise, weakness. EENTM: Reports: no symptoms, see HPI. Cardiovascular: Reports: no symptoms, see HPI. Respiratory: Reports: no symptoms, see HPI. GI: Reports: see HPI, melena. Denies: abdominal pain, bloating, constipation, diarrhea. Genitourinary: Reports: no symptoms, see HPI. Musculoskeletal: Reports: no symptoms, see HPI. Skin: Reports: see HPI. Neurological/Psychological: Reports: cognitive dysfunction, confusion. Hematologic/Endocrine: Reports: see HPI. 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 MOTHER (leukemia). Psychosocial History Where Do You Live? Home Who Do You Live With? child Services at Home: None Primary Language: Spanish Smoking Status: Current Everyday Smoker ETOH Use: denies use Illicit Drug Use: denies illicit drug use Living Will? no Functional Ability ADLs Independent: dressing, eating, toileting, bathing. Ambulation: walker IADLs Independent: telephone. Needs Assist: shopping, housework, food prep, transportation. Exam & Diagnostic Data Last 24 Hrs of Vital Signs/I&O Vital Signs Date Time Temp Pulse Resp B/P Pulse O2 O2 Flow FiO2 Ox Delivery Rate 05/04 1800 90 20 118/67 05/04 1600 94 20 139/75 05/04 1600 97.3 94 20 132/78 99 Nasal 2.0L Cannula 05/04 1600 98 Nasal 2.0L Cannula 05/04 1400 60 26 148/84 05/04 1326 Room Air 05/04 1200 97.7 83 20 130/82 05/04 1200 98 Room Air 05/04 1000 91 20 147/79 05/04 0800 98.1 90 20 140/88 05/04 0800 98.1 90 20 140/88 97 Nasal 2.0L Cannula 05/04 0800 98 Nasal 2.0L Cannula 05/04 0600 98.3 92 20 142/74 05/04 0400 98.3 94 20 144/82 05/04 0400 97 Nasal 1.0L Cannula 05/04 0200 97.6 92 20 147/86 05/04 0000 97 Nasal 3.0L Cannula 05/04 0000 97.6 90 18 128/84 97 Nasal 3.0L Cannula 05/03 2311 92 20 129/86 98 Nasal 3.0L Cannula 05/039 98 Nasal 3.0L Cannula 05/03 2142 98 20 122/75 98 Nasal 3.0L Cannula 05/03 2033 97.2 93 20 143/79 Nasal 3.0L Cannula 05/03 1942 Room Air 3.0L Intake & Output 05/04 1600 05/04 0800 05/04 0000 Intake Total 4143 528 3583 Output Total 590 059 5792 Balance 820 447 -150 Intake, IV 410 743 1131 Intake, Oral 360 0 Number 0 Bowel Movements Output, Urine 843 165 4128 Patient 92.278 kg Weight Physical Exam General Appearance: well developed/nourished, no apparent distress, alert, awake , mild distress Head: atraumatic, normal appearance Eyes: Bilateral: normal appearance, PERRL, EOMI. Neck: normal inspection, supple, full range of motion Respiratory: normal breath sounds, chest non-tender, no respiratory distress Cardiovascular: regular rate/rhythm, normal peripheral pulses Peripheral Pulses: 2+ radial (L), 2+ ulnar (L), 0 femoral (R), 0 femoral (L), 0 tibialis posterior (R), 0 tibialis posterior (L), 0 dorsalis pedis (R), 0 dorsalis pedis (L) Gastrointestinal: normal bowel sounds, soft, non-tender Legs Anterior 1) Significant necrotic wounds bilaterally, dressed well. Evident desquamation without any purulent drainage. Last 48 Hrs of Labs/Abhay: Laboratory Tests 05/04/16 1625: Anion Gap 5, Estimated GFR 51 L, Glucose 114 H, Calcium 8.0 L, Phosphorus 4.6 H, Magnesium 2.4 H, Total Bilirubin 0.3, AST 99 H, ALT 65, Albumin 2.1 L, CBC w Diff NO MAN DIFF REQ, RBC 4.11 L, MCV 86.2, MCH 28.9, RDW 15.2 H, MPV 6.4 L, Gran % 89.6 H, Lymphocytes % 5.2 L, Monocytes % 4.7, Eosinophils % 0.1 , Basophils % 0.4, Absolute Granulocytes 10.3 H, Absolute Lymphocytes 0.6 L, Absolute Monocytes 0.5, Absolute Eosinophils 0, Absolute Basophils 0.1, PUBS MCHC 33.5 05/04/16 1210: Anion Gap 8, Estimated GFR 51 L, Glucose 94, Calcium 8.3 L, Phosphorus 5.6 H, Magnesium 2.6 H, Total Bilirubin 0.6, AST 81 H, ALT 59, Albumin 2.2 L 05/04/16 0815: Anion Gap 7, Estimated GFR 51 L, Glucose 91, Calcium 8.2 L, Phosphorus 5.3 H, Magnesium 1.8, Total Bilirubin 0.5, AST 50, ALT 54, Albumin 2.1 L 05/04/16 0440: Sodium Cancelled, Potassium Cancelled, Chloride Cancelled, Carbon Dioxide Cancelled, Anion Gap Cancelled, BUN Cancelled, Creatinine Cancelled, Glucose Cancelled, Calcium Cancelled, Phosphorus Cancelled, Magnesium Cancelled, Total Bilirubin Cancelled, AST Cancelled, ALT Cancelled, Albumin Cancelled 05/04/16 0440: Anion Gap 6, Estimated GFR 51 L, Glucose 87, Calcium 8.2 L, Phosphorus 5.1 H, Magnesium 1.8, Total Bilirubin 0.6, AST 52, ALT 59, Troponin I 0.04, Albumin 2.1 L, CBC w Diff NO MAN DIFF REQ, RBC 4.03 L, MCV 87.8, MCH 29.3, RDW 15.1 H, MPV 6.6 L, Gran % 95.5 H, Lymphocytes % 3.5 L, Monocytes % 0.9 L, Eosinophils % 0.1, Basophils % 0 L, Absolute Granulocytes 12.5 H, Absolute Lymphocytes 0.5 L, Absolute Monocytes 0.1 L, Absolute Eosinophils 0, Absolute Basophils 0, PUBS MCHC 33.4, Hepatitis A IgM Ab NONREACTIVE, Hep Bs Antigen NONREACTIVE, Hep B Core IgM Ab Conf NONREACTIVE, Hepatitis C Antibody NONREACTIVE, HIV 1&2 Ab Western Blot NONREACTIVE 05/04/16 0020: Magnesium 1.8, Troponin I 0.04 05/04/16 0020: Lactic Acid 1.0 05/04/16 0020: Anion Gap 8, Estimated GFR 51 L, BUN/Creatinine Ratio 32.1 H 05/03/162140: CBC w Diff Cancelled, WBC Cancelled, RBC Cancelled, Hgb Cancelled, Hct Cancelled , MCV Cancelled, MCH Cancelled, RDW Cancelled, Plt Count Cancelled, MPV Cancelled, PUBS MCHC Cancelled 05/03/16 185: pH 7.38, pCO2 25 L, pO2 129 H, HCO3 14 L, ABG O2 Sat (Measured) 98.0, P-50 ( Temp Corrected) YES, Carboxyhemoglobin 0.5 L, O2 Concentration % 4L, Temperature 99.1, O2 Delivery Method NC, Phlebotomy Draw Site RIGHT RADIAL 05/03/161844: Urine Color YEL, Urine Clarity CLEAR, Urine pH 6.0, Ur Specific Oral >= 1.030 , Urine Protein >=300 H, Urine Ketones NEG, Urine Nitrite NEG, Urine Bilirubin NEG, Urine Urobilinogen 0.2, Ur Leukocyte Esterase NEG, Ur Microscopic SEDIMENT EXAMINED, Urine RBC FEW H, Urine WBC RARE, Ur Epithelial Cells RARE, Urine Hemoglobin SMALL H, Urine Glucose NEG 05/03/16 184: Urine Opiates Screen < 100.00, Methadone Screen < 40, Barbiturate Screen < 60, Ur Phencyclidine Scrn < 6.00, Amphetamines Screen < 100, U Benzodiazepines Scrn < 85, Urine Cocaine Screen < 50, Urine Cannabis Screen < 5.00, Urine Osmolality 562, Ur Random Creatinine 105.5, Ur Random Sodium < 5 L, Ur Random Potassium 76.7, Fraction Sodium Excret ND 05/03/16 1830: Anion Gap 10, Estimated GFR 41 L, BUN/Creatinine Ratio 31.8 H, Glucose 85, Serum Osmolality 281 L, Lactic Acid 1.2, Calcium 9.0, Total Bilirubin 0.8, AST 66 H, ALT 76 H, Alkaline Phosphatase 220 H, Ammonia < 9 L, Troponin I 0.04, Total Protein 6.0 L, Albumin 3.0 L, Globulin 3.0, Albumin/Globulin Ratio 1.0 L, Amylase 158 H, Lipase 799 H, TSH 1.850, Free T4 1.18, Total T3 0.67 L, PT 10.9, INR 1.04, APTT 32, CBC w Diff MAN DIFF ORDERED, RBC 5.11, MCV 87.8, MCH 29.0, RDW 15.1 H, MPV 6.7 L, Gran % 91.3 H, Lymphocytes % 5.2 L, Monocytes % 2.9, Eosinophils % 0.1, Basophils % 0.5, Absolute Granulocytes 14.0 H, Segmented Neutrophils 90 H, Band Neutrophils 3, Absolute Lymphocytes 0.8 L, Lymphocytes 4 L, Monocytes 3, Absolute Monocytes 0.4, Absolute Eosinophils 0, Absolute Basophils 0.1, Platelet Estimate ADEQUATE, PUBS MCHC 33.0, Acetaminophen < 10.0 L, Serum Alcohol < 10.0 Diagnostic Data CXR Results IMPRESSION: Nonspecific opacities at the left lung base most likely reflect atelectasis, although early consolidation could appear similarly. Other Results CT chest IMPRESSION: No infiltrate. Findings of chronic emphysema and fibrosis. Pathologically enlarged mediastinal lymph nodes. Differential diagnosis includes potentially aggressive lesions including lymphoma or metastatic disease. Granulomatous disease can also appear this way. Esophageal wall thickening and debris within the esophagus as above. Consider endoscopy or esophagram for further evaluation. Assessment/Plan Impression/Plan: Patient is a 66-year-old male with past medical history significant for hypertension, AAA repair status post stent placement, severe COPD, peripheral vascular disease causing necrotic ulcers bilaterally below the knees, mal nutrition, pulmonary fibrosis and mediastinal lymphadenopathy came to ER yesterday due to altered mental status. He was admitted to ICU because of hyponatremia around 118. He is also found to have black tarry guaiac-positive stools in the ER. He is admitted to ICU for close monitoring and her grades are checked every 4 hours he was started on D5 half-normal saline in the night and vital signs are stable. He is placed on 3 L nasal cannula initially which was eventually changed to 1 L in the morning. Plan Hyponatremia - suspected SIADH vs excess free water intake * Presented with altered mentation * Patient drinks lot of free water at home in kojo setting of Jae and thiazide intake * CT found Mediastinal lymphadenopathy of undetermined etiology * Started on D51/2NS at night, morning started on NS@100ml/hr. * In the evening sodium level found to be 118 sgyrt minimal variations. * NS was stopped and started on sodium chloride 3g tablets TID * 800ml fluid restriction. * vitals monitored Q4hrs. Hyperkalemia * Potassium at admission is 7.2 - now 5.4 * Received IV insulin and dextrose, IV calcium gluconate, Kayexalate. * Probably secondary to lisinopril or increased aldosterone response * holding lisinopril for now. Bilateral LE necrotic ulcers secondary to peripheral vascular disease * femoral pulses are weak and had a history of repaired AAA aneurysm * Vascular sugery is consulted * suggested empiric antibiotics and arterial PVR testing. Guiac positive black tarry stools * H&H at admission is 14-8/44 - dropped to 11.9/35 and remained stable * GI is consulted * Endoscopy is recommended once electrolytes are stabilized Esophageal lesion (probably Barretts esophagus) * evident on CT * may need further evaluation DVT Prophylaxis * Alps Code status * DNR/DNI Problem List: 1. Altered mental status 2. Hyponatremia syndrome 3. Acute hyperkalemia 4. Peripheral vascular disease 5. Ulcers of both lower legs, limited to breakdown of skin Consult Acknowledgment - Thank you for your consult request.
--- NOTE | 2016-05-04 11:32 | Cons- CRCU ---
General Information and HPI Consulting Request Date of Consult: 05/04/16 Requested By: med team History of Present Illness: Mr. Mercado is a 66 year old male with multiple medical problems including COPD, HTN and s/p AAA rupture and repair by stent placement in 2013 who presented to last night after being brought in last night by his family with an altered mental status. The pts son found him confused last night and reports that for the past 3 days he has been having black tarry stools. There are no reports of any abdominal pain, nausea, vomiting, heartburn, chest pain, shortness of breath, lightheadedness or any bright red blood per rectum. The pt was not able to say how many black tarry stools he has been having. He was found to be hyponatremic and hyperkalemic on admission lab work for which he was given insulin with d50, 60mL of kayexelate and calcium gluconate. He was also given IV solumedrol, IV antibiotics and had a ct scan that was negative for any acute intra-abdominal process. He was noted to have 'caked on stool' on his rectum per nursing notes in the ED, but there is no description of the color. On arrival to the ER he was incontinent of liquid, black stool as described by the house staff. Overnight he has remained hemodynamically stable and he has not had any further bowel movements since admission. His potassium is improved this morning but he remains hyponatremic. Patient is very noncompliant with his medications. He only sees his PCP Dr. Turner and lost saw him 5 months ago per son. He doesn't see any specialist as an outpatient. He has not been taking any medication for last 3 months. Normally he walks with walker at home. There is nobody at home to help him when son Leaves for his work. According to son he did not eat or drink whole day today. He is current every day smoker. Smokes less than half pack per day for last 40 years. He used to drink 6 packs on weekends and quit 4-5 months ago. Allergies/Medications Allergies: Coded Allergies: NO KNOWN ALLERGIES (06/07/13) Home Med List: Aspirin (Aspirin*) 325 MG TABLET 1 TAB PO DAILY HEART/BLOOD (Reported) Lisinopril/Hydrochlorothiazide (Lisinopril-Hctz 20-25 MG Tab) 20 MG-25 MG TABLET 1 TAB PO DAILY BP (Reported) Review of Systems Review of Systems Constitutional: Reports: see HPI. 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 MOTHER (leukemia). Psychosocial History Where Do You Live? Home Who Do You Live With? child Services at Home: None Primary Language: Polish Smoking Status: Current Everyday Smoker ETOH Use: denies use Illicit Drug Use: denies illicit drug use Living Will? no Functional Ability ADLs Independent: dressing, eating, toileting, bathing. Ambulation: walker IADLs Independent: telephone. Needs Assist: shopping, housework, food prep, transportation. Exam & Diagnostic Data Last 24 Hrs of Vital Signs/I&O Vital Signs Date Time Temp Pulse Resp B/P Pulse O2 O2 Flow FiO2 Ox Delivery Rate 05/04 0600 98.3 92 20 142/74 05/04 0400 98.3 94 20 144/82 05/04 0400 97 Nasal 1.0L Cannula 05/04 0200 97.6 92 20 147/86 05/04 0000 97 Nasal 3.0L Cannula 05/04 0000 97.6 90 18 128/84 97 Nasal 3.0L Cannula 05/03 2311 92 20 129/86 98 Nasal 3.0L Cannula 05/03 2149 98 Nasal 3.0L Cannula 05/03 2142 98 20 122/75 98 Nasal 3.0L Cannula 05/03 2033 97.2 93 20 143/79 Nasal 3.0L Cannula 05/03 194 Room Air 3.0L 05/03 1857 97.2 98 22 159/98 Nasal 3.0L Cannula Intake & Output 05/04 1600 05/04 0800 05/04 0000 Intake Total 797 1000 Output Total 350 1150 Balance 447 -150 Intake, IV 797 1000 Intake, Oral 0 Number 0 Bowel Movements Output, Urine 350 1150 Patient 203 lb Weight Last 48 Hrs of Labs/Abhay: Laboratory Tests 05/04/16 0815: Anion Gap 7, Estimated GFR 51 L, Glucose 91, Calcium 8.2 L, Phosphorus 5.3 H, Magnesium 1.8, Total Bilirubin 0.5, AST 50, ALT 54, Albumin 2.1 L 05/04/16 0440: Sodium Cancelled, Potassium Cancelled, Chloride Cancelled, Carbon Dioxide Cancelled, Anion Gap Cancelled, BUN Cancelled, Creatinine Cancelled, Glucose Cancelled, Calcium Cancelled, Phosphorus Cancelled, Magnesium Cancelled, Total Bilirubin Cancelled, AST Cancelled, ALT Cancelled, Albumin Cancelled 05/04/16 0440: Anion Gap 6, Estimated GFR 51 L, Glucose 87, Calcium 8.2 L, Phosphorus 5.1 H, Magnesium 1.8, Total Bilirubin 0.6, AST 52, ALT 59, Troponin I 0.04, Albumin 2.1 L, CBC w Diff NO MAN DIFF REQ, RBC 4.03 L, MCV 87.8, MCH 29.3, RDW 15.1 H, MPV 6.6 L, Gran % 95.5 H, Lymphocytes % 3.5 L, Monocytes % 0.9 L, Eosinophils % 0.1, Basophils % 0 L, Absolute Granulocytes 12.5 H, Absolute Lymphocytes 0.5 L, Absolute Monocytes 0.1 L, Absolute Eosinophils 0, Absolute Basophils 0, PUBS MCHC 33.4, Hepatitis A IgM Ab NONREACTIVE, Hep Bs Antigen NONREACTIVE, Hep B Core IgM Ab Conf NONREACTIVE, Hepatitis C Antibody NONREACTIVE, HIV 1&2 Ab Western Blot NONREACTIVE 05/04/16 0020: Magnesium 1.8, Troponin I 0.04 05/04/16 0020: Lactic Acid 1.0 05/04/16 0020: Anion Gap 8, Estimated GFR 51 L, BUN/Creatinine Ratio 32.1 H 05/03/16 2141: CBC w Diff Cancelled, WBC Cancelled, RBC Cancelled, Hgb Cancelled, Hct Cancelled , MCV Cancelled, MCH Cancelled, RDW Cancelled, Plt Count Cancelled, MPV Cancelled, PUBS MCHC Cancelled 05/03/16 1855: pH 7.38, pCO2 25 L, pO2 129 H, HCO3 14 L, ABG O2 Sat (Measured) 98.0, P-50 ( Temp Corrected) YES, Carboxyhemoglobin 0.5 L, O2 Concentration % 4L, Temperature 99.1, O2 Delivery Method NC, Phlebotomy Draw Site RIGHT RADIAL 05/03/161844: Urine Color YEL, Urine Clarity CLEAR, Urine pH 6.0, Ur Specific [place] >= 1.030 , Urine Protein >=300 H, Urine Ketones NEG, Urine Nitrite NEG, Urine Bilirubin NEG, Urine Urobilinogen 0.2, Ur Leukocyte Esterase NEG, Ur Microscopic SEDIMENT EXAMINED, Urine RBC FEW H, Urine WBC RARE, Ur Epithelial Cells RARE, Urine Hemoglobin SMALL H, Urine Glucose NEG 05/03/161844: Urine Opiates Screen < 100.00, Methadone Screen < 40, Barbiturate Screen < 60, Ur Phencyclidine Scrn < 6.00, Amphetamines Screen < 100, U Benzodiazepines Scrn < 85, Urine Cocaine Screen < 50, Urine Cannabis Screen < 5.00, Urine Osmolality 562, Ur Random Creatinine 105.5, Ur Random Sodium < 5 L, Ur Random Potassium 76.7, Fraction Sodium Excret ND 05/03/161829: Anion Gap 10, Estimated GFR 41 L, BUN/Creatinine Ratio 31.8 H, Glucose 85, Serum Osmolality 281 L, Lactic Acid 1.2, Calcium 9.0, Total Bilirubin 0.8, AST 66 H, ALT 76 H, Alkaline Phosphatase 220 H, Ammonia < 9 L, Troponin I 0.04, Total Protein 6.0 L, Albumin 3.0 L, Globulin 3.0, Albumin/Globulin Ratio 1.0 L, Amylase 158 H, Lipase 799 H, TSH 1.850, Free T4 1.18, Total T3 0.67 L, PT 10.9, INR 1.04, APTT 32, CBC w Diff MAN DIFF ORDERED, RBC 5.11, MCV 87.8, MCH 29.0, RDW 15.1 H, MPV 6.7 L, Gran % 91.3 H, Lymphocytes % 5.2 L, Monocytes % 2.9, Eosinophils % 0.1, Basophils % 0.5, Absolute Granulocytes 14.0 H, Segmented Neutrophils 90 H, Band Neutrophils 3, Absolute Lymphocytes 0.8 L, Lymphocytes 4 L, Monocytes 3, Absolute Monocytes 0.4, Absolute Eosinophils 0, Absolute Basophils 0.1, Platelet Estimate ADEQUATE, PUBS MCHC 33.0, Acetaminophen < 10.0 L, Serum Alcohol < 10.0 ct scan: FINDINGS: LUNG BASES: There is centrilobular emphysema. There is hazy opacity suggestive of atelectasis in the dependent aspect of each lower lobe. Aortic valve calcifications are seen. Cardiomegaly. No pericardial or pleural effusion. LIVER, GALLBLADDER, AND BILIARY TREE: Unremarkable for a noncontrast examination. PANCREAS: Pancreas has normal attenuation on these noncontrast images. No imaging findings to suggest acute pancreatitis. No pancreatic ductal dilatation, peripancreatic edema or retroperitoneal fluid collection. SPLEEN: Unremarkable. ADRENAL GLANDS: Unremarkable. KIDNEYS AND URETERS: 1.4 cm cortical cyst at the upper pole of the right kidney. No hydronephrosis or nephrolithiasis. There is mild atrophy of the right kidney. The right kidney measures approximately 10.6 cm in length and left kidney 13.8 cm in length. The ureters are normal in caliber. BLADDER: The bladder is decompressed by a Espinoza catheter. GASTROINTESTINAL TRACT: Bowel loops are normal in size. There are scattered diverticula of the sigmoid colon without diverticulitis. No acute findings along the gastrointestinal tract. ABDOMINAL WALL: Unremarkable. LYMPH NODES: No pathologic sized lymph nodes within the abdomen or pelvis. VASCULAR: There is an aortoiliac stent graft in place. The teller abdominal aorta measures up to 6.5 cm transverse, 6.6 cm AP. The abdominal aorta was ruptured on 06/07/2013 at which time it measured up to 9.6 cm transverse and 8.5 cm AP. There is no periaortic inflammatory change or retroperitoneal hemorrhage. PELVIC VISCERA: Prostate gland is grossly unremarkable. No pelvic free fluid. OSSEOUS STRUCTURES: Within the lumbar spine, disc degeneration is most advanced at L2-L3 where there is moderate loss of disc space, endplate sclerosis, vacuum disc phenomenon and traction osteophyte formation. No aggressive bone lesions. IMPRESSION: 1. No acute imaging findings within the abdomen or pelvis. There is no imaging evidence of pancreatitis in this patient who presents for evaluation of pancreatitis. 2. Sigmoid colon diverticulosis without diverticulitis. 3. The previously ruptured infrarenal abdominal aortic aneurysm has been treated with an aortoiliac stent graft and the teller abdominal aorta has decreased in size compared to 06/07/2013. Assessment/Plan Impression/Plan: General Appearance Alert, Oriented X3, Cooperative, No Acute Distress HEENT dry mucous membranes Neck No JVD Cardiovascular Regular Rate, grade 1 systolic murmur Lungs decreased air entry Abdomen Normal Bowel Sounds, Soft, No Tenderness Neurological Normal Speech, Strength at 5/5 X4 Ext Extremities B/L LE swelling with redness, oozing necrotic wounds, non tender, pulses implapable SIGNIFICANT DATA History CT scan was reviewed personally His CT of the chest showed advanced emphysema with hyperinflation no infiltrate he also seemed to have unfortunately significant pulmonary fibrosis and prominent lymphadenopathy with tenderness 17 mm and the 11 of alisa He does have esophageal debris with circumferential thick-walled appearance noted He does have pathologically enlarged mediastinal lymph nodes potentially aggressive lesions including lymphoma metastatic disease. CT scan of the head did not show any infiltrate CT of the abdomen and pelvis showed no acute findings in the belly he had ruptured infrarenal aortic aneurysm has been treated with aortoiliac graft and his aneurysm was ruptured in 2014 His other blood work reviewed his creatinine is 1.4 which is chronically high sodium 120 initially when he came into the hospital was 118 his Ativan gap is 7 his amylase lipase is elevated his LFTs were slightly abnormal with high alkaline phosphatase's TSH was 1.8 his hepatitis profile has been so far negative his white count 13.1 hemoglobin 11.8 platelets adequate ABG 738/25/129 on 4 L IMPRESSION This is an unfortunate 66-year-old gentleman with history of hypertension, severe COPD with emphysema, previous ruptured aortic aneurysm status post stent placement, poor performance status, severe peripheral vascular disease with bilateral lower extremity necrotic ulcers on both sides related to severe peripheral vascular disease, chronic kidney disease with probable proteinuria, severe hyponatremia, electrolyte imbalance, black tarry stools by history with stable H&H initially with no active evidence of GI bleed, mediastinal lymphadenopathy, pulmonary fibrosis, mediastinal lymphadenopathy which needs to be investigated in the future now has the following issues * Significant altered mental status which is slowly improving most likely related to severe hyponatremia which appears to be syndrome of inappropriate ADH secretion * Bilateral lower extremity cellulitis with necrotic ulcers which needs to be investigated with probable infection with high white count * Hyperkalemia initially which seems to have improved since admission nephrology is on board last potassium 5.4 and patient seems to be adequately making urine now with chronic kidney disease and patient was taking lisinopril at home am not sure whether he was compliant with it which may have contributed to his hyper kalemia * Previous ruptured aneurysm which appears to be stable * History suggestive of GI bleed with black tarry stool with slightly reduced hemoglobin and hematocrit since admission GI on board * Esophageal lesion seen in the CT scan probably consistent with Guzmán's esophagus versus GERD versus malignancy hence he would need an upper endoscopy * Severe emphysema * Mild pulmonary fibrosis * Mediastinal lymphadenopathy which needs follow-up CT on a PET scan 1 stable * Severe peripheral vascular disease with lower extremity both arterial and venous insufficiency with probable cellulitis which may need to be debrided * Acute on chronic kidney disease * Chronic lower extremity edema which needs to be followed * Altered LFTs RECOMMENDATION * Watch his hemoglobin and hematocrit * Watch his stool does have active bleeding GI will do an endoscopy * Continue proton pump inhibitor * As needed nebulizer treatment * Replace magnesium * Watch his amylase lipase * Continue IV fluids change him to D5 normal saline and watch us sodium and the we will try to increase his sodium very slowly to avoid demyelination syndrome * Please call vascular disease the patient patient would require debridement most likely * WOuld need abx prob will have ID evaluation for his lower ext necrotic lesions * Total lisinopril and watches potassium * Nephrology is aware * Patient is critically ill total time spent 45 minutes Consult Acknowledgment - Thank you for your consult request.
--- NOTE | 2016-05-04 14:26 | Cons- Nephrology ---
General Information and HPI Consulting Request Date of Consult: 05/04/16 Requested By: MISA AYOUB,BETTYE Reason for Consult: DELORIS, Hyperkalemia, Hyponatremia Source of Information: patient, family, old records Exam Limitations: no limitations History of Present Illness: 66 yr old WM w mult med problems including HTN, COPD, ASCVDx s/p AAA repair & CKD admit yesterday w confusion & melena. Outpt meds included thiazide diuretic & ACEI; found severely hyperkalemic (7.2) & hyponatremic (118) w worsening renal function from baseline Cr ~ 1.5 --> 1.7. Given insulin/glucose, Kayexalate & begun on IV NS w improving labs & good u/o. Denies NSAID use & no documented recent IV contrast or hypotension. Denies vomiting or diarrhea at home but intake limited & primarily liquids. Transaminases & lipase also elevated but no abd pain. Significant EtOH hx in past but denies any recent. Now awake w/o SOB. Allergies/Medications Allergies: Coded Allergies: NO KNOWN ALLERGIES (06/07/13) Home Med List: Aspirin (Aspirin*) 325 MG TABLET 1 TAB PO DAILY HEART/BLOOD (Reported) Lisinopril/Hydrochlorothiazide (Lisinopril-Hctz 20-25 MG Tab) 20 MG-25 MG TABLET 1 TAB PO DAILY BP (Reported) Review of Systems Review of Systems Constitutional: Reports: malaise. EENTM: Reports: no symptoms. Cardiovascular: Reports: edema. Respiratory: Reports: no symptoms. GI: Reports: melena. Genitourinary: Reports: no symptoms. Musculoskeletal: Reports: no symptoms. Skin: Reports: no symptoms. Neurological/Psychological: Reports: confusion. Hematologic/Endocrine: Reports: no symptoms. Immunologic/Allergic: Reports: no symptoms. 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 MOTHER (leukemia). Psychosocial History Where Do You Live? Home Who Do You Live With? child Services at Home: None Primary Language: Georgian Smoking Status: Current Everyday Smoker ETOH Use: denies use Illicit Drug Use: denies illicit drug use Living Will? no Functional Ability ADLs Independent: dressing, eating, toileting, bathing. Ambulation: walker IADLs Independent: telephone. Needs Assist: shopping, housework, food prep, transportation. Exam & Diagnostic Data Vital Signs and I&O Vital Signs Date Time Temp Pulse Resp B/P Pulse O2 O2 Flow FiO2 Ox Delivery Rate 05/04 1326 Room Air 05/04 1200 97.7 83 20 130/82 05/04 1200 98 Room Air 05/04 1000 91 20 147/79 05/04 0800 98.1 90 20 140/88 05/04 0800 98.1 90 20 140/88 97 Nasal 2.0L Cannula 05/04 0800 98 Nasal 2.0L Cannula 05/04 0600 98.3 92 20 142/74 05/04 0400 98.3 94 20 144/82 05/04 0400 97 Nasal 1.0L Cannula 05/04 0200 97.6 92 20 147/86 05/04 0000 97 Nasal 3.0L Cannula 05/04 0000 97.6 90 18 128/84 97 Nasal 3.0L Cannula 05/03 2311 92 20 129/86 98 Nasal 3.0L Cannula 05/03 2149 98 Nasal 3.0L Cannula 05/03 2142 98 20 122/75 98 Nasal 3.0L Cannula 05/03 2033 97.2 93 20 143/79 Nasal 3.0L Cannula 05/03 1942 Room Air 3.0L 05/03 1857 97.2 98 22 159/98 Nasal 3.0L Cannula Intake & Output 05/04 1600 05/04 0400 05/03 1600 05/03 0400 05/02 1600 05/02 0400 Intake Total 797 1000 Output Total 350 1150 Balance 447 -150 Intake, IV 797 1000 Intake, Oral 0 Number 0 Bowel Movements Output, Urine 350 1150 Patient 203 lb Weight Physical Exam General Appearance: well developed/nourished, no apparent distress, alert Head: atraumatic, normal appearance Ears, Nose, Throat: normal ENT inspection Neck: normal inspection Respiratory: no respiratory distress, quiet respiration, decreased breath sounds Cardiovascular: regular rate/rhythm, edema Gastrointestinal: normal bowel sounds, soft, non-tender, no organomegaly Back: normal inspection Extremities: both legs dressed Neurologic/Psych: no motor/sensory deficits, awake, alert, oriented x 3 Skin: intact Lymphatic: no anterior cervical jean Results Pertinent Lab Results: Laboratory Tests 05/04 05/04 05/04 1210 0815 0440 Chemistry Sodium (137 - 145 mmol/L) Pending 120 L Cancelled Potassium (3.5 - 5.1 mmol/L) Pending 5.4 H Cancelled Chloride (98 - 107 mmol/L) Pending 95 L Cancelled Carbon Dioxide (22 - 30 mmol/L) Pending 18 L Cancelled Anion Gap (5 - 16) Pending 7 Cancelled BUN (9 - 20 mg/dL) Pending 39 H Cancelled Creatinine (0.7 - 1.2 mg/dL) Pending 1.4 H Cancelled Estimated GFR (>60 ml/min) 51 L Glucose (65 - 99 mg/dL) Pending 91 Cancelled Calcium (8.4 - 10.2 mg/dL) Pending 8.2 L Cancelled Phosphorus (2.5 - 4.5 mg/dL) Pending 5.3 H Cancelled Magnesium (1.6 - 2.3 mg/dL) Pending 1.8 Cancelled Total Bilirubin (0.2 - 1.3 mg/dL) Pending 0.5 Cancelled AST (17 - 59 U/L) Pending 50 Cancelled ALT (21 - 72 U/L) Pending 54 Cancelled Albumin (3.5 - 5.0 g/dL) Pending 2.1 L Cancelled 05/04 05/04 05/04 05/04 0440 0020 0020 0020 Chemistry Sodium (137 - 145 mmol/L) 119 *L 116 *L Potassium (3.5 - 5.1 mmol/L) 5.2 H 5.3 H Chloride (98 - 107 mmol/L) 95 L 92 L Carbon Dioxide (22 - 30 mmol/L) 18 L 16 L Anion Gap (5 - 16) 6 8 BUN (9 - 20 mg/dL) 41 H 45 H Creatinine (0.7 - 1.2 mg/dL) 1.4 H 1.4 H Estimated GFR (>60 ml/min) 51 L 51 L BUN/Creatinine Ratio (7 - 25 %) 32.1 H Glucose (65 - 99 mg/dL) 87 Lactic Acid (0.7 - 2.1 mmol/L) 1.0 Calcium (8.4 - 10.2 mg/dL) 8.2 L Phosphorus (2.5 - 4.5 mg/dL) 5.1 H Magnesium (1.6 - 2.3 mg/dL) 1.8 1.8 Total Bilirubin (0.2 - 1.3 mg/dL) 0.6 AST (17 - 59 U/L) 52 ALT (21 - 72 U/L) 59 Troponin I (<0.11 ng/ml) 0.04 0.04 Albumin (3.5 - 5.0 g/dL) 2.1 L Hematology CBC w Diff NO MAN DIFF REQ WBC (4.8 - 10.8 /CUMM) 13.1 H RBC (4.70 - 6.10 /CUMM) 4.03 L Hgb (14.0 - 18.0 G/DL) 11.8 L Hct (42 - 52 %) 35.4 L MCV (80.0 - 94.0 FL) 87.8 MCH (27.0 - 31.0 PG) 29.3 RDW (11.5 - 14.5 %) 15.1 H Plt Count (130 - 400 /CUMM) 334 MPV (7.4 - 10.4 FL) 6.6 L Gran % (42.2 - 75.2 %) 95.5 H Lymphocytes % (20.5 - 51.1 %) 3.5 L Monocytes % (1.7 - 9.3 %) 0.9 L Eosinophils % (0 - 5 %) 0.1 Basophils % (0.0 - 2.0 %) 0 L Absolute Granulocytes (1.4 - 6.5 /CUMM) 12.5 H Absolute Lymphocytes (1.2 - 3.4 /CUMM) 0.5 L Absolute Monocytes (0.10 - 0.60 /CUMM) 0.1 L Absolute Eosinophils (0.0 - 0.7 /CUMM) 0 Absolute Basophils (0.0 - 0.2 /CUMM) 0 PUBS MCHC (33.0 - 37.0 G/DL) 33.4 Serology Hepatitis A IgM Ab (NONREACTIVE) NONREACTIVE Hep Bs Antigen (NONREACTIVE) NONREACTIVE Hep B Core IgM Ab Conf (NONREACTIVE) NONREACTIVE Hepatitis C Antibody (NONREACTIVE) NONREACTIVE HIV 1&2 Ab Western Blot (NONREACTIVE) NONREACTIVE 05/03 05/03 2141 1855 Blood Gas pH (7.35 - 7.45 PH) 7.38 pCO2 (35 - 45 TORR) 25 L pO2 (80 - 100 TORR) 129 H HCO3 (21 - 28 MEQ/L) 14 L ABG O2 Sat (Measured) (>96.0 %) 98.0 P-50 (Temp Corrected) YES Carboxyhemoglobin (1.5 - 5.0 %) 0.5 L O2 Concentration % 4L Temperature (97.0 - 100.0 FARH) 99.1 O2 Delivery Method NC Hematology CBC w Diff Cancelled WBC Cancelled RBC Cancelled Hgb Cancelled Hct Cancelled MCV Cancelled MCH Cancelled RDW Cancelled Plt Count Cancelled MPV Cancelled PUBS MCHC Cancelled Miscellaneous Phlebotomy Draw Site RIGHT RADIAL 05/03 05/03 1845 1845 Toxicology Urine Opiates Screen (>2000 NG/ML) < 100.00 Methadone Screen (>300 NG/ML) < 40 Barbiturate Screen (>200 NG/ML) < 60 Ur Phencyclidine Scrn (>25 NG/ML) < 6.00 Amphetamines Screen (>1000 NG/ML) < 100 U Benzodiazepines Scrn (>200 NG/ML) < 85 Urine Cocaine Screen (>300 NG/ML) < 50 Urine Cannabis Screen (>50 NG/ML) < 5.00 Urines Urine Color (YEL,AMB,STR) YEL Urine Clarity (CLEAR) CLEAR Urine pH (5.0 - 8.0) 6.0 Ur Specific [place] (1.001 - 1.035) >= 1.030 Urine Protein (NEG,<30 MG/DL) >=300 H Urine Ketones (NEG) NEG Urine Nitrite (NEG) NEG Urine Bilirubin (NEG) NEG Urine Urobilinogen (0.1 - 1.0 EU/dl) 0.2 Ur Leukocyte Esterase (NEG) NEG Ur Microscopic SEDIMENT EXAMINED Urine RBC (0 - 5 /HPF) FEW H Urine WBC (0 - 2 /HPF) RARE Ur Epithelial Cells (NONE,FEW) RARE Urine Hemoglobin (NEG) SMALL H Urine Osmolality (300 - 1000 MOSM/KG) 562 Ur Random Creatinine (mg/dL) 105.5 Ur Random Sodium (30 - 90 mmol/L) < 5 L Ur Random Potassium (mmol/L) 76.7 Fraction Sodium Excret (<1% %) ND Urine Glucose (N MG/DL) NEG 05/03 1830 Chemistry Sodium (137 - 145 mmol/L) 118 *L Potassium (3.5 - 5.1 mmol/L) 7.2 *H Chloride (98 - 107 mmol/L) 88 L Carbon Dioxide (22 - 30 mmol/L) 20 L Anion Gap (5 - 16) 10 BUN (9 - 20 mg/dL) 54 H Creatinine (0.7 - 1.2 mg/dL) 1.7 H Estimated GFR (>60 ml/min) 41 L BUN/Creatinine Ratio (7 - 25 %) 31.8 H Glucose (65 - 99 mg/dL) 85 Serum Osmolality (285 - 295 MOSM/KG) 281 L Lactic Acid (0.7 - 2.1 mmol/L) 1.2 Calcium (8.4 - 10.2 mg/dL) 9.0 Total Bilirubin (0.2 - 1.3 mg/dL) 0.8 AST (17 - 59 U/L) 66 H ALT (21 - 72 U/L) 76 H Alkaline Phosphatase (< 127 U/L) 220 H Ammonia (9 - 30 umol/L) < 9 L Troponin I (<0.11 ng/ml) 0.04 Total Protein (6.3 - 8.2 g/dL) 6.0 L Albumin (3.5 - 5.0 g/dL) 3.0 L Globulin (1.9 - 4.2 gm/dL) 3.0 Albumin/Globulin Ratio (1.1 - 2.2 %) 1.0 L Amylase (30 - 110 U/L) 158 H Lipase (23 - 300 U/L) 799 H TSH (0.270 - 4.200 uIU/mL) 1.850 Free T4 (0.78 - 2.44 ng/dL) 1.18 Total T3 (0.97 - 1.69 ng/mL) 0.67 L Coagulation PT (9.4 - 12.5 SEC) 10.9 INR (0.90 - 1.17) 1.04 APTT (25 - 37 SEC) 32 Hematology CBC w Diff MAN DIFF ORDERED WBC (4.8 - 10.8 /CUMM) 15.3 H RBC (4.70 - 6.10 /CUMM) 5.11 Hgb (14.0 - 18.0 G/DL) 14.8 Hct (42 - 52 %) 44.9 MCV (80.0 - 94.0 FL) 87.8 MCH (27.0 - 31.0 PG) 29.0 RDW (11.5 - 14.5 %) 15.1 H Plt Count (130 - 400 /CUMM) 402 H MPV (7.4 - 10.4 FL) 6.7 L Gran % (42.2 - 75.2 %) 91.3 H Lymphocytes % (20.5 - 51.1 %) 5.2 L Monocytes % (1.7 - 9.3 %) 2.9 Eosinophils % (0 - 5 %) 0.1 Basophils % (0.0 - 2.0 %) 0.5 Absolute Granulocytes (1.4 - 6.5 /CUMM) 14.0 H Segmented Neutrophils (42.2 - 75.2 %) 90 H Band Neutrophils (0.0 - 5.0 %) 3 Absolute Lymphocytes (1.2 - 3.4 /CUMM) 0.8 L Lymphocytes (20.5 - 51.1 %) 4 L Monocytes (1.7 - 9.3 %) 3 Absolute Monocytes (0.10 - 0.60 /CUMM) 0.4 Absolute Eosinophils (0.0 - 0.7 /CUMM) 0 Absolute Basophils (0.0 - 0.2 /CUMM) 0.1 Platelet Estimate (ADEQUATE) ADEQUATE PUBS MCHC (33.0 - 37.0 G/DL) 33.0 Toxicology Acetaminophen (10.0 - 30.0 ug/mL) < 10.0 L Serum Alcohol (<10 MG/DL) < 10.0 Imaging/Other Studies: CT: LUNGS: Advanced emphysema with hyperinflation. There are some cystic changes noted peripherally within both upper lobes and minor dependent atelectasis but no infiltrate or mass lesion is appreciated. Appearance on recent radiographs can be attributed to chronic parenchymal disease. No discrete nodule. MEDIASTINUM: Prominent lymph nodes largest measuring up to 17 mm short axis the level of the alisa. Similar sized subcarinal lymph nodes. No bulky hilar lesions. Saber tooth appearance of the trachea consistent with COPD. Esophagus demonstrates a circumferentially thick-walled appearance with debris noted. PLEURA: There is no pleural effusion. No pleural mass or thickening. KIDNEYS AND URETERS: 1.4 cm cortical cyst at the upper pole of the right kidney. No hydronephrosis or nephrolithiasis. There is mild atrophy of the right kidney. The right kidney measures approximately 10.6 cm in length and left kidney 13.8 cm in length. The ureters are normal in caliber. IMPRESSION: 1. No acute imaging findings within the abdomen or pelvis. There is no imaging evidence of pancreatitis in this patient who presents for evaluation of pancreatitis. 2. Sigmoid colon diverticulosis without diverticulitis. 3. The previously ruptured infrarenal abdominal aortic aneurysm has been treated with an aortoiliac stent graft and the [place] abdominal aorta has decreased in size compared to 06/07/2013 Assessment/Plan Assessment/Recommendations Assessment: 1. DELORIS: likely prerenal due to volume contraction in setting of RAAS interruption. Improving. 2. CKD: mod, stage 3, prob due to underlying HTN nephrosclerosis & RV dx. 3. Hyperkalemia: severe on admit but improved; due to RAAS interruption in face of DELORIS & increased K load as a result of tissue breakdown. 4. Hyponatrmia: likely due to excess free water intake in face of thiazide & DELORIS ; improving & needs continued volume expansion w isotonic saline as po free water restricted. Can not make dx SIADH in current setting. Would target further Na rise hi 120s-130 over next 24 hrs. Recommendations: 1. continue IV NS another 24 hrs 2. po fluid restriction 800 ml/day till Na > 125 then 1 liter/day till =/> 130 3. two gram K diet restriction 4. serial chemistries q 4hrs x next day; target serum Na hi 120s-130 over next 24 hrs 5. If Na rise too fast over next 24 hrs --> change IV D5 to plateau <130
--- NOTE | 2016-05-04 15:02 | Cons- Vascular Surgery ---
General Information and HPI Consulting Request Date of Consult: 05/04/16 Requested By: MISA AYOUB,BETTYE Reason for Consult: bilateral leg wounds Source of Information: patient Exam Limitations: no limitations History of Present Illness: 66 yr old male with leg wounds. Patient has had bilateral leg wounds for about 4 weeks. patient states he is taking care of the wounds at home, and has not seen a healthcare provider. Was admitted today with hyponatremia, elevated white count. I was asked to evaluate bilateral leg wounds, circulation. Patient denies any pain currently. He is smoked for many years, quit about 2-3 months ago. Patient was at home with his son. He has a history of ruptured abdominal aortic aneurysm, status post repair years ago. Allergies/Medications Allergies: Coded Allergies: NO KNOWN ALLERGIES (06/07/13) Home Med List: Aspirin (Aspirin*) 325 MG TABLET 1 TAB PO DAILY HEART/BLOOD (Reported) Atorvastatin Calcium 80 MG TABLET 1 TAB PO 1700 PVD/CHOLESTEROL Metoprolol Tartrate 25 MG TABLET 0.5 TAB PO BID HYPERTENSION Current Medications: Current Medications Sig/Fidelina Start time Last Medication Dose Route Stop Time Status Admin Albuterol Sulfate 3 ML TID 05/04 1600 AC 05/04 INH 1159 Albuterol Sulfate 3 ML Q4H PRN 05/03 2145 DC INH Azithromycin 500 MG ONCE ONE 05/03 2015 DC 05/03 Sodium Chloride 250 ML IV 05/03 Calcium Gluconate 0 .STK-MED ONE 05/03 2041 DC IV Calcium Gluconate 1 GM ONCE ONE 05/03 2030 DC 05/03 Sodium Chloride 100 ML IV 05/03 Ceftriaxone Sodium 0 .STK-MED ONE 05/03 2123 DC .ROUTE Ceftriaxone Sodium 1,000 MG ONCE ONE 05/03 2015 DC 05/03 IV 05/03 Dextrose 25 GM ONCE ONE 05/03 2115 DC 05/03 IV 05/03 Dextrose 25 GM ONCE ONE 05/03 1930 DC 05/03 IV 05/03 1931 194 Dextrose/Sodium 1,000 ML Q10H 05/04 1215 DC 05/04 Chloride IV 1215 Dextrose/Sodium 1,000 ML .Q10H 05/03 2145 DC 05/03 Chloride IV 2223 Heparin Sodium 5,000 UNIT Q8 05/03 2200 AC 05/04 (Porcine) SC 1410 Insulin Human Regular 10 UNITS ONCE ONE 05/030 DC 05/03 IV 05/03 1931 194 Ipratropium Wheeler 2.5 ML TID 05/04 1600 AC 05/04 INH 1159 Lorazepam 0 Q1P PRN 05/04 0130 DC IV Magnesium Sulfate 1 GM ONCE ONE 05/04 0930 DC 05/04 N/A 1 UNIT IV 05/04 1129 1158 Magnesium Sulfate 1 GM ONCE ONE 05/04 0730 DC 05/04 N/A 1 UNIT IV 05/04 0929 0959 Methylprednisolone 0 .STK-MED ONE 05/03 2040 DC .ROUTE Methylprednisolone 125 MG ONCE ONE 05/03 2015 DC 05/03 IV 05/03 Pantoprazole Sodium 40 MG DAILY 05/04 1000 DC IV Pantoprazole Sodium 40 MG DAILY 05/03 224 AC 05/04 IV 1002 Pantoprazole Sodium 0 .STK-MED ONE 05/03 2233 DC IV Sodium Chloride 1,000 ML Q10H 05/04 1430 AC IV Sodium Chloride 1,000 ML Q10H 05/04 0130 DC 05/04 IV 0144 Sodium Chloride 1,000 ML BOLUS ONE 05/03 193 DC 05/03 IV 05/03 2029 194 Sodium Chloride 1,000 ML BOLUS ONE 05/03 193 DC 05/03 IV 05/03 Sodium Polystyrene 0 .STK-MED ONE 05/03 1940 DC Sulfonate .ROUTE Sodium Polystyrene 60 ML ONCE ONE 05/03 1930 DC 05/03 Sulfonate PO 05/03 Vancomycin HCl 1,000 MG ONCE ONE 05/03 2145 DC 05/04 Sodium Chloride 250 ML IV 05/03 2244 0049 Past History Medical History Neurological: NONE EENT: NONE Cardiovascular: NSTEMI, HYPERTENSION AAA REPAIR CARDIAC CATH C/ STENTS Respiratory: COPD Gastrointestinal: NONE Hepatic: NONE Renal: NONE Musculoskeletal: CELLULITIS Psychiatric: NONE Endocrine: NONE Blood Disorders: NONE Cancer(s): NONE 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 MOTHER (leukemia). Psychosocial History Where Do You Live? Home Who Do You Live With? child Services at Home: None Primary Language: Yoruba Smoking Status: Current Everyday Smoker ETOH Use: denies use Illicit Drug Use: denies illicit drug use Living Will? no Functional Ability ADLs Independent: dressing, eating, toileting, bathing. Ambulation: walker IADLs Independent: telephone. Needs Assist: shopping, housework, food prep, transportation. Review of Systems Review of Systems Constitutional: Denies: no symptoms. Cardiovascular: Reports: edema. Denies: chest pain. Genitourinary: Denies: no symptoms. Exam & Diagnostic Data Vital Signs and I&O Intake & Output 05/16 0805/16 0000 05/15 1600 05/15 0805/15 0000 Intake Total 500 360 Output Total 1000 200 Balance -500 160 Intake, Oral 500 360 Output, Urine 1000 200 Physical Exam: Bilateral lower extremities: Moist, Dr., necrotic pozo wounds; dry necrotic wounds on dorsum of bilateral feet. Nontender. Pulses nonpalpable from femoral arteries to distal. PT Doppler signals are very weak and monophasic. DP Dopplers are at least monophasic to biphasic bilateral. Physical Exam General Appearance: well developed/nourished, no apparent distress, alert, awake , comfortable Head: atraumatic, normal appearance Eyes: Bilateral: normal appearance. Neck: normal inspection Peripheral Pulses: 2+ radial (R), 2+ radial (L), 0 femoral (R), 0 femoral (L), 0 popliteal (R), 0 popliteal (L), 0 tibialis posterior (R), 0 tibialis posterior (L), 0 dorsalis pedis (R), 0 dorsalis pedis (L) (biphasic DP Doppler bilateral) Neurologic/Psych: no motor/sensory deficits, awake, alert, oriented x 3 Assessment/Plan Assessment/Plan #1. Peripheral vascular disease. Abdominal aortic aneurysm repair. Nonpalpable or show any pulses with wounds of both shins. Objective testing with lower extremity arterial PVR testing. If circulation is significantly impaired, may need revascularization. Discussed with patient, and ICU team. #2. Ulcers of both lower extremities. Continue local wound care. Wounds are quite superficial. Believe antibiotics to be beneficial at this time. Gross appearance of wounds suggest healing may be a problem; however arterial perfusion may give us a better idea. Continue medical management of other issues. Will follow up after testing. Problem List: 1. Peripheral vascular disease 2. Ulcers of both lower legs, limited to breakdown of skin Consult Acknowledgment - Thank you for your consult request.
[2016-05-04 16:56] LABS: ABSOLUTE BASOPHIL COUNT 0.1 /CUMM (0.0-0.2); ABSOLUTE EOSINOPHIL COUNT 0 /CUMM (0.0-0.7); ABSOLUTE GRANULOCYTE CT 10.3 /CUMM (1.4-6.5); ABSOLUTE LYMPH COUNT 0.6 /CUMM (1.2-3.4); ABSOLUTE MONOCYTE COUNT 0.5 /CUMM (0.10-0.60); BASOPHIL % 0.4 % (0.0-2.0); EOSINOPHIL % 0.1 % (0-5); GRANULOCYTE % 89.6 % (42.2-75.2); HEMATOCRIT 35.4 % (42-52); MEAN CORPUSCULAR HGB 28.9 PG (27.0-31.0); MEAN CORPUSCULAR HGB CONC 33.5 G/DL (33.0-37.0); MEAN CORPUSCULAR VOLUME 86.2 FL (80.0-94.0); MEAN PLATELET VOLUME 6.4 FL (7.4-10.4); PLATELET COUNT 321 /CUMM (130-400); RBC DISTRIBUTION WIDTH 15.2 % (11.5-14.5); RED BLOOD CELL CT 4.11 /CUMM (4.70-6.10)
[2016-05-04 17:19] LABS: WHITE BLOOD CELL COUNT 11.4 /CUMM (4.8-10.8)
[2016-05-05] VITALS: BP 140/80
[2016-05-05 04:36] LABS: ABSOLUTE BASOPHIL COUNT 0.1 /CUMM (0.0-0.2); ABSOLUTE EOSINOPHIL COUNT 0 /CUMM (0.0-0.7); ABSOLUTE GRANULOCYTE CT 8.2 /CUMM (1.4-6.5); ABSOLUTE LYMPH COUNT 0.9 /CUMM (1.2-3.4); ABSOLUTE MONOCYTE COUNT 0.6 /CUMM (0.10-0.60); BASOPHIL % 0.7 % (0.0-2.0); EOSINOPHIL % 0.4 % (0-5); GRANULOCYTE % 83.1 % (42.2-75.2); HEMATOCRIT 33.7 % (42-52); MEAN CORPUSCULAR VOLUME 87.8 FL (80.0-94.0); MEAN PLATELET VOLUME 6.2 FL (7.4-10.4); PLATELET COUNT 340 /CUMM (130-400); RBC DISTRIBUTION WIDTH 15.1 % (11.5-14.5); RED BLOOD CELL CT 3.84 /CUMM (4.70-6.10)
[2016-05-05 05:24] LABS: WHITE BLOOD CELL COUNT 9.8 /CUMM (4.8-10.8)
[2016-05-05 08:00] VITALS: BP 140/70
--- NOTE | 2016-05-05 08:09 | Cons- Infect Disease ---
General Information and HPI Consulting Request Date of Consult: 05/05/16 Requested By: MISA AYOUB,BETTYE Reason for Consult: Lower extremity cellulitis Source of Information: patient History of Present Illness: This is a 66-year-old man with a history of hypertension, though noncompliant, COPD and chronic renal insufficiency admitted on May 03 after he was found at home to be confused and weak with several days of black/tarry stools and with a several week history of lower extremity necrotic skin lesions. On admission he was afebrile. Laboratory data revealed a white blood cell count of 15,000, BUN/creatinine 54 and 1.7, sodium 118, potassium 7.2, amylase/lipase 158 and 799 , alkaline phosphatase 220, AST/ALT 66 and 76, coags normal. Urinalysis few RBC /rare WBCs. Chest x-ray revealed nonspecific opacities at the left lung base felt to represent atelectasis. CT of the abdomen and pelvis was negative for any acute process. CT of the chest revealed pathologically enlarged mediastinal lymph nodes and esophageal wall thickening and debris. CT of the head was negative for any acute process. He was given 2 L of fluid in the emergency room. He was given a dose of Solumedrol as well as doses of Azithromycin, Ceftriaxone and Vancomycin and admitted to the ICU, where he was followed off antibiotics. He was evaluated by GI, Renal and Vascular surgery. He has remained afebrile since admission and white blood cell count has normalized. At present he offers no complaints. Allergies/Medications Allergies: Coded Allergies: NO KNOWN ALLERGIES (06/07/13) Home Med List: Aspirin (Aspirin*) 325 MG TABLET 1 TAB PO DAILY HEART/BLOOD (Reported) Lisinopril/Hydrochlorothiazide (Lisinopril-Hctz 20-25 MG Tab) 20 MG-25 MG TABLET 1 TAB PO DAILY BP (Reported) Past History Travel History Traveled to [place] past 21 day No Medical History Neurological: NONE EENT: NONE Cardiovascular: CAD (status post stents), NSTEMI, HYPERTENSION Respiratory: COPD Gastrointestinal: NONE Hepatic: NONE Renal: chronic kidney disease Psychiatric: NONE Endocrine: NONE Blood Disorders: NONE Cancer(s): NONE 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 MOTHER (leukemia). Psychosocial History Where Do You Live? Home Who Do You Live With? child Services at Home: None Primary Language: Kittitian Smoking Status: Current Everyday Smoker ETOH Use: denies use Illicit Drug Use: denies illicit drug use Living Will? no Functional Ability ADLs Independent: dressing, eating, toileting, bathing. Ambulation: walker IADLs Independent: telephone. Needs Assist: shopping, housework, food prep, transportation. Review of Systems Review of Systems All Other Systems: Reviewed and Negative Exam & Diagnostic Data Last 24 Hrs of Vital Signs/I&O Vital Signs Date Time Temp Pulse Resp B/P Pulse O2 O2 Flow FiO2 Ox Delivery Rate 05/05 0000 96.7 92 18 140/80 05/05 0000 96.7 92 18 140/80 96 Nasal 2.0L Cannula 05/05 0000 96 Nasal 2.0L Cannula 05/04 2200 88 18 134/79 05/04 2000 96.9 93 18 133/73 05/04 2000 94 Nasal 2.0L Cannula 05/04 1926 95 Nasal 2.0L Cannula 05/04 1800 90 20 118/67 05/04 1600 94 20 139/75 05/04 1600 97.3 94 20 132/78 99 Nasal 2.0L Cannula 05/04 1600 98 Nasal 2.0L Cannula 05/04 1400 60 26 148/84 05/04 1326 Room Air 05/04 1200 97.7 83 20 130/82 05/04 1200 98 Room Air 05/04 1000 91 20 147/79 Intake & Output 05/05 1600 05/05 0800 05/05 0000 Intake Total 100 620 Output Total 310 365 Balance -210 255 Intake, IV 400 Intake, Oral 100 220 Output, Urine 310 365 Physical Exam Other Physical Findings: He is awake and alert in no acute distress. He is afebrile. Skin reveals no rash. HEENT exam poor dentition. Neck is supple with no adenopathy. Lungs are clear. Heart regular rhythm with a 1/6 systolic ejection murmur. Abdomen is soft, nontender with positive bowel sounds. Back no CVA tenderness. Extremities bilateral lower extremity necrotic ulcerations, with minimal surrounding erythema, 1+ edema, nontender to palpation, with barely palpable pulses of the feet. Neuro is without focality. Espinoza catheter is in place. Last 24 Hours of Lab Results: Laboratory Tests 05/05 05/05 05/05 0600 0415 0000 Chemistry Sodium (137 - 145 mmol/L) 120 L 119 *L Potassium (3.5 - 5.1 mmol/L) 4.9 4.9 Chloride (98 - 107 mmol/L) 96 L 94 L Carbon Dioxide (22 - 30 mmol/L) 20 L 18 L Anion Gap (5 - 16) 4 L 7 BUN (9 - 20 mg/dL) 34 H 35 H Creatinine (0.7 - 1.2 mg/dL) 1.4 H 1.4 H Estimated GFR (>60 ml/min) 51 L 51 L BUN/Creatinine Ratio (7 - 25 %) 25.0 Glucose (65 - 99 mg/dL) 109 H Calcium (8.4 - 10.2 mg/dL) 8.2 L Phosphorus (2.5 - 4.5 mg/dL) 3.9 Magnesium (1.6 - 2.3 mg/dL) 2.1 Total Bilirubin (0.2 - 1.3 mg/dL) 0.5 AST (17 - 59 U/L) 110 H ALT (21 - 72 U/L) 66 Albumin (3.5 - 5.0 g/dL) 2.1 L Triglycerides (<150 mg/dL) 97 Cholesterol (< 200 MG/DL) 146 LDL Cholesterol, Calc (65 - 129 mg/dL) 76 HDL Cholesterol (40 - 60 mg/dL) 51 Cholesterol/HDL Ratio (0.00 - 4.88 %) 3 Amylase (30 - 110 U/L) Cancelled 105 Lipase (23 - 300 U/L) Cancelled 559 H Hematology CBC w Diff NO MAN DIFF REQ WBC (4.8 - 10.8 /CUMM) 9.8 RBC (4.70 - 6.10 /CUMM) 3.84 L Hgb (14.0 - 18.0 G/DL) 11.1 L Hct (42 - 52 %) 33.7 L MCV (80.0 - 94.0 FL) 87.8 MCH (27.0 - 31.0 PG) 29.0 RDW (11.5 - 14.5 %) 15.1 H Plt Count (130 - 400 /CUMM) 340 MPV (7.4 - 10.4 FL) 6.2 L Gran % (42.2 - 75.2 %) 83.1 H Lymphocytes % (20.5 - 51.1 %) 9.4 L Monocytes % (1.7 - 9.3 %) 6.4 Eosinophils % (0 - 5 %) 0.4 Basophils % (0.0 - 2.0 %) 0.7 Absolute Granulocytes (1.4 - 6.5 /CUMM) 8.2 H Absolute Lymphocytes (1.2 - 3.4 /CUMM) 0.9 L Absolute Monocytes (0.10 - 0.60 /CUMM) 0.6 Absolute Eosinophils (0.0 - 0.7 /CUMM) 0 Absolute Basophils (0.0 - 0.2 /CUMM) 0.1 PUBS MCHC (33.0 - 37.0 G/DL) 33.0 05/04 1625 1210 0815 Chemistry Sodium (137 - 145 mmol/L) 117 *L 118 *L 119 *L 120 L Potassium (3.5 - 5.1 mmol/L) 5.4 H 5.1 5.5 H 5.4 H Chloride (98 - 107 mmol/L) 92 L 93 L 93 L 95 L Carbon Dioxide (22 - 30 mmol/L) 21 L 20 L 18 L 18 L Anion Gap (5 - 16) 4 L 5 8 7 BUN (9 - 20 mg/dL) 38 H 37 H 39 H 39 H Creatinine (0.7 - 1.2 mg/dL) 1.4 H 1.4 H 1.4 H 1.4 H Estimated GFR (>60 ml/min) 51 L 51 L 51 L 51 L Glucose (65 - 99 mg/dL) 115 H 114 H 94 91 Calcium (8.4 - 10.2 mg/dL) 8.0 L 8.0 L 8.3 L 8.2 L Phosphorus (2.5 - 4.5 mg/dL) 4.1 4.6 H 5.6 H 5.3 H Magnesium (1.6 - 2.3 mg/dL) 2.2 2.4 H 2.6 H 1.8 Total Bilirubin (0.2 - 1.3 mg/dL) 0.4 0.3 0.6 0.5 AST (17 - 59 U/L) 103 H 99 H 81 H 50 ALT (21 - 72 U/L) 60 65 59 54 Albumin (3.5 - 5.0 g/dL) 2.1 L 2.1 L 2.2 L 2.1 L Hematology CBC w Diff NO MAN DIFF REQ WBC (4.8 - 10.8 /CUMM) 11.4 H RBC (4.70 - 6.10 /CUMM) 4.11 L Hgb (14.0 - 18.0 G/DL) 11.9 L Hct (42 - 52 %) 35.4 L MCV (80.0 - 94.0 FL) 86.2 MCH (27.0 - 31.0 PG) 28.9 RDW (11.5 - 14.5 %) 15.2 H Plt Count (130 - 400 /CUMM) 321 MPV (7.4 - 10.4 FL) 6.4 L Gran % (42.2 - 75.2 %) 89.6 H Lymphocytes % (20.5 - 51.1 %) 5.2 L Monocytes % (1.7 - 9.3 %) 4.7 Eosinophils % (0 - 5 %) 0.1 Basophils % (0.0 - 2.0 %) 0.4 Absolute Granulocytes (1.4 - 6.5 /CUMM) 10.3 H Absolute Lymphocytes (1.2 - 3.4 /CUMM) 0.6 L Absolute Monocytes (0.10 - 0.60 /CUMM) 0.5 Absolute Eosinophils (0.0 - 0.7 /CUMM) 0 Absolute Basophils (0.0 - 0.2 /CUMM) 0.1 PUBS MCHC (33.0 - 37.0 G/DL) 33.5 Last 24 Hours of Abhay Results: Blood cultures 2 May 03 negative Urine culture May 03 negative Diagnostic Data Recent Imaging Findings: Chest x-ray, personally reviewed, reveals nonspecific opacities at the left lung base felt to represent atelectasis. CT of the abdomen and pelvis negative for any acute process. CT of the chest reveals pathologically enlarged mediastinal lymph nodes and esophageal wall thickening and debris. CT of the head negative for any acute process. Assessment/Plan Assessment/Plan Impression: This is a 66-year-old man with a history of hypertension, COPD and chronic renal insufficiency admitted on May 03 after found confused at home, with a history of black/tarry stools for the last several days and lower extremity necrotic ulcerations for the last several weeks, found to be afebrile, with evidence of dehydration, and with labs revealing marked hyponatremia, hyperkalemia, worsening renal insufficiency and leukocytosis. His lower extremity necrotic lesions may require debridement but there does not appear to be any evidence for secondary cellulitis; therefore he should not require antibiotics for this. He has no evidence for any other focus of infection and he remains afebrile with white blood cell count now normal off antibiotics. His history of tarry stools with findings on CT scan of pathologically enlarged mediastinal lymph nodes and esophageal thickening raise concern for an underlying malignancy and he will require further evaluation for these findings. Suggestion: 1. Local wound care to the lower extremities, with possible debridement per Vascular surgery 2. Further management of his hyponatremia per Renal 3. Remove Espinoza catheter if okay with Renal 4. Further evaluation regarding his tarry stools, lymphadenopathy and esophageal findings per GI and Medicine 5. Continue to follow off antibiotics Consult Acknowledgment - Thank you for your consult request.
--- NOTE | 2016-05-05 08:41 | PN- Resident CRCU ---
Subjective HPI/CRCU Issues: Patient seen and examined. He is seen sitting upright in bed resting comfortably. He appears to be in no acute distress. He seems annoyed and mentions that he doesn't want "any specialist coming in here because there is no money in it ". He is concerned as he reportedly has no insurance, however it was explained that he will be given care regardless of this. He otherwise states that his legs "look worse than when he came in". Additionally he denies any headache, fever, chills, chest pain, palpitations, shortness of breath, cough, nausea, vomiting, diarrhea. No overnight events reported. Objective Vital Signs & I&O Last 8 Hrs of Vitals and I&O: Vitals: - Temperature: 96.7 - Heart Rate: 92-108 - Respiratory Rate: 14-20 - Systolic Blood pressure: 136-145 - Diastolic Blood pressure: 69-84 - Oxygen Saturation: 91-98% on room air Exam General Appearance: well developed/nourished, no apparent distress, alert, awake , anxious, comfortable Other Physical Findings: General -thin male who appears older than his stated age, mildly agitated but in no acute distress HEENT - NCAT, PERRL, EOMI, anicteric sclera Cardio - S1, S2 w/o murmurs/gallops/rubs Resp - CTA bilaterally w/o wheezing/rhochi/crackles GI -soft, nontender, nondistended abdomen, bowel sounds present Neuro - Awake and alert, CN II - XII grossly intact Extremities-bilateral lower extremities recently wrapped in sterile surgical dressings with no obvious drainage Current Medications: Current Medications Sig/Fidelina Start time Last Medication Dose Route Stop Time Status Admin Albuterol Sulfate 3 ML TID 05/04 1600 AC 05/05 INH 0838 Albuterol Sulfate 3 ML Q4H PRN 05/03 2145 DC INH Atorvastatin Calcium 80 MG 1700 05/04 1700 AC 05/04 PO 1849 Dextrose/Sodium 1,000 ML Q10H 05/04 1215 DC 05/04 Chloride IV 1215 Furosemide 40 MG ONCE ONE 05/05 1030 DC 05/05 IV 05/05 1031 1035 Heparin Sodium 5,000 UNIT Q8 05/03 2200 AC 05/05 (Porcine) SC 0508 Ipratropium Julian 2.5 ML TID 05/04 1600 AC 05/05 INH 0838 Magnesium Sulfate 1 GM ONCE ONE 05/04 0930 DC 05/04 N/A 1 UNIT IV 05/04 1129 1158 Pantoprazole Sodium 40 MG DAILY 05/03 2245 05/05 IV 1035 Patient Medication 1 UNIT ONE NR 05/04 1700 DC Teaching ED 05/04 1730 Sodium Chloride 3,000 MG TID 05/04 2200 05/05 PO 1035 Sodium Chloride 1,000 ML Q10H 05/04 1430 DC 05/04 IV 1458 Sodium Chloride 1,000 ML Q10H 05/04 0130 DC 05/04 IV 0144 Impression/Plan Impression/Problem List Impression: Patient has clinically improving hyponatremia with fluid restriction and salt tablet administration in addition to the intravenous fluid therapy. Patient is also being seen by infectious disease whom decided to follow the patient off antibiotics for now. Vascular surgery saw the patient yesterday whom made no immediate recommendations. Gastroenterology consultation determined that the patient may require an EGD at some point in time. He is considered stable for transfer to telemetry. Hyponatremia: Resolving Patient has clinically improving hyponatremia. Patient needs to be monitored for overcorrection of serum sodium, however it is currently thought that he will not correct aggressively per nephrology consult. -800 mL daily fluid restriction -NaCl 3g PO TID -Lasix 40 mg IV every 12 2 doses -Nephrology consult following -Serum chemistries every 12 hours -Follow up 8 AM cortisol level Possible Gastrointestinal bleed: Patient has a history of black tarry stools with a drop in hemoglobin which is now stable. Patient to undergo an EGD per medical team based on clinical course. -Protonix 40 mg IV daily -Complete blood count every 12 hours until stable -GI consult following Bilateral lower extremity wounds: Most likely secondary to peripheral vascular disease. -Wound care -No antibiotics for now -Vascular surgery consult following -Infectious disease consult following Hyperlipidemia-stable, continue atorvastatin Diet-heart healthy diet DVT prophylaxis-subcutaneous heparin CODE STATUS-DNR/DNI Problem List: 1. Hyponatremia syndrome 2. Peripheral vascular disease 3. Ulcers of both lower legs, limited to breakdown of skin Pain Ratin Tomorrow's Labs & Rationales: Complete blood count ICU bundle Amylase/lipase Plan DVT/Prophylaxis: pharmacological
--- NOTE | 2016-05-05 10:22 | PN- Nephrology ---
Assessment/Plan Assessment: 1. Hyponatremia: chronic & severe but stable; risk of rapid correction low based on labs last 24 hrs. Needs continued fluid restriction & po NaCl; would add furosemide to increase free water clearance 2. CKD: mod, stage 3; due to HTN & RV dx; stable Suggestion: 1. continue fluid restriction 800 ml/day 2. continue po NaCL 3 gram tid 3. add Lasix 40 mg IV q12 x 2 doses Subjective Subjective: Awake & alert No SOB No nausea or vomiting Objective Vital Signs and I&Os Vital Signs Date Time Temp Pulse Resp B/P Pulse O2 O2 Flow FiO2 Ox Delivery Rate 05/05 0841 95 Room Air Room Air 05/05 0000 96.7 92 18 140/80 05/05 0000 96.7 92 18 140/80 96 Nasal 2.0L Cannula 05/05 0000 96 Nasal 2.0L Cannula 05/04 2200 88 18 134/79 05/04 2000 96.9 93 18 133/73 05/04 2000 94 Nasal 2.0L Cannula 05/04 1926 95 Nasal 2.0L Cannula 05/04 1800 90 20 118/67 05/04 1600 94 20 139/75 05/04 1600 97.3 94 20 132/78 99 Nasal 2.0L Cannula 05/04 1600 98 Nasal 2.0L Cannula 05/04 1400 60 26 148/84 05/04 1326 Room Air 05/04 1200 97.7 83 20 130/82 05/04 1200 98 Room Air Intake & Output 05/05 1600 05/05 0400 05/04 1600 05/04 0400 05/03 1600 05/03 0400 Intake Total 306 635 4437 1000 Output Total 310 599 244 0608 Balance -432 091 9672 -150 Intake, IV 400 1657 1000 Intake, Oral 100 220 360 Number 0 Bowel Movements Output, Urine 310 236 057 1656 Patient 203 lb Weight Physical Exam General Appearance: well developed/nourished, no apparent distress Head: atraumatic, normal appearance Respiratory: normal breath sounds, no respiratory distress, lungs clear Cardiovascular: regular rate/rhythm Abdomen: soft, non-tender Extremities: ulcers dressed Neurologic/Psychiatric: awake, alert Current Medications: Current Medications Sig/Fidelina Start time Last Medication Dose Route Stop Time Status Admin Albuterol Sulfate 3 ML TID 05/04 1600 AC 05/05 INH 0838 Albuterol Sulfate 3 ML Q4H PRN 05/03 2145 DC INH Atorvastatin Calcium 80 MG 1700 05/04 1700 AC 05/04 PO 1849 Dextrose/Sodium 1,000 ML Q10H 05/04 1215 DC 05/04 Chloride IV 1215 Heparin Sodium 5,000 UNIT Q8 05/03 2200 AC 05/05 (Porcine) SC 0508 Ipratropium [place] 2.5 ML TID 05/04 1600 AC 05/05 INH 0838 Magnesium Sulfate 1 GM ONCE ONE 05/04 0930 DC 05/04 N/A 1 UNIT IV 05/04 1129 1158 Pantoprazole Sodium 40 MG DAILY 05/03 2245 AC 05/04 IV 1002 Patient Medication 1 UNIT ONE NR 05/04 1700 DC Teaching ED 05/04 1730 Sodium Chloride 3,000 MG TID 05/04 2200 AC 05/04 PO 2221 Sodium Chloride 1,000 ML Q10H 05/04 1430 DC 05/04 IV 1458 Sodium Chloride 1,000 ML Q10H 05/04 0130 DC 05/04 IV 0144 Results Pertinent Lab Results: Laboratory Tests 05/05 05/05 05/05 0600 0415 0000 Chemistry Sodium (137 - 145 mmol/L) 120 L 119 *L Potassium (3.5 - 5.1 mmol/L) 4.9 4.9 Chloride (98 - 107 mmol/L) 96 L 94 L Carbon Dioxide (22 - 30 mmol/L) 20 L 18 L Anion Gap (5 - 16) 4 L 7 BUN (9 - 20 mg/dL) 34 H 35 H Creatinine (0.7 - 1.2 mg/dL) 1.4 H 1.4 H Estimated GFR (>60 ml/min) 51 L 51 L BUN/Creatinine Ratio (7 - 25 %) 25.0 Glucose (65 - 99 mg/dL) 109 H Calcium (8.4 - 10.2 mg/dL) 8.2 L Phosphorus (2.5 - 4.5 mg/dL) 3.9 Magnesium (1.6 - 2.3 mg/dL) 2.1 Total Bilirubin (0.2 - 1.3 mg/dL) 0.5 AST (17 - 59 U/L) 110 H ALT (21 - 72 U/L) 66 Albumin (3.5 - 5.0 g/dL) 2.1 L Triglycerides (<150 mg/dL) 97 Cholesterol (< 200 MG/DL) 146 LDL Cholesterol, Calc (65 - 129 mg/dL) 76 HDL Cholesterol (40 - 60 mg/dL) 51 Cholesterol/HDL Ratio (0.00 - 4.88 %) 3 Amylase (30 - 110 U/L) Cancelled 105 Lipase (23 - 300 U/L) Cancelled 559 H Hematology CBC w Diff NO MAN DIFF REQ WBC (4.8 - 10.8 /CUMM) 9.8 RBC (4.70 - 6.10 /CUMM) 3.84 L Hgb (14.0 - 18.0 G/DL) 11.1 L Hct (42 - 52 %) 33.7 L MCV (80.0 - 94.0 FL) 87.8 MCH (27.0 - 31.0 PG) 29.0 RDW (11.5 - 14.5 %) 15.1 H Plt Count (130 - 400 /CUMM) 340 MPV (7.4 - 10.4 FL) 6.2 L Gran % (42.2 - 75.2 %) 83.1 H Lymphocytes % (20.5 - 51.1 %) 9.4 L Monocytes % (1.7 - 9.3 %) 6.4 Eosinophils % (0 - 5 %) 0.4 Basophils % (0.0 - 2.0 %) 0.7 Absolute Granulocytes (1.4 - 6.5 /CUMM) 8.2 H Absolute Lymphocytes (1.2 - 3.4 /CUMM) 0.9 L Absolute Monocytes (0.10 - 0.60 /CUMM) 0.6 Absolute Eosinophils (0.0 - 0.7 /CUMM) 0 Absolute Basophils (0.0 - 0.2 /CUMM) 0.1 PUBS MCHC (33.0 - 37.0 G/DL) 33.0 05/04 1625 1210 0815 Chemistry Sodium (137 - 145 mmol/L) 117 *L 118 *L 119 *L 120 L Potassium (3.5 - 5.1 mmol/L) 5.4 H 5.1 5.5 H 5.4 H Chloride (98 - 107 mmol/L) 92 L 93 L 93 L 95 L Carbon Dioxide (22 - 30 mmol/L) 21 L 20 L 18 L 18 L Anion Gap (5 - 16) 4 L 5 8 7 BUN (9 - 20 mg/dL) 38 H 37 H 39 H 39 H Creatinine (0.7 - 1.2 mg/dL) 1.4 H 1.4 H 1.4 H 1.4 H Estimated GFR (>60 ml/min) 51 L 51 L 51 L 51 L Glucose (65 - 99 mg/dL) 115 H 114 H 94 91 Calcium (8.4 - 10.2 mg/dL) 8.0 L 8.0 L 8.3 L 8.2 L Phosphorus (2.5 - 4.5 mg/dL) 4.1 4.6 H 5.6 H 5.3 H Magnesium (1.6 - 2.3 mg/dL) 2.2 2.4 H 2.6 H 1.8 Total Bilirubin (0.2 - 1.3 mg/dL) 0.4 0.3 0.6 0.5 AST (17 - 59 U/L) 103 H 99 H 81 H 50 ALT (21 - 72 U/L) 60 65 59 54 Albumin (3.5 - 5.0 g/dL) 2.1 L 2.1 L 2.2 L 2.1 L Hematology CBC w Diff NO MAN DIFF REQ WBC (4.8 - 10.8 /CUMM) 11.4 H RBC (4.70 - 6.10 /CUMM) 4.11 L Hgb (14.0 - 18.0 G/DL) 11.9 L Hct (42 - 52 %) 35.4 L MCV (80.0 - 94.0 FL) 86.2 MCH (27.0 - 31.0 PG) 28.9 RDW (11.5 - 14.5 %) 15.2 H Plt Count (130 - 400 /CUMM) 321 MPV (7.4 - 10.4 FL) 6.4 L Gran % (42.2 - 75.2 %) 89.6 H Lymphocytes % (20.5 - 51.1 %) 5.2 L Monocytes % (1.7 - 9.3 %) 4.7 Eosinophils % (0 - 5 %) 0.1 Basophils % (0.0 - 2.0 %) 0.4 Absolute Granulocytes (1.4 - 6.5 /CUMM) 10.3 H Absolute Lymphocytes (1.2 - 3.4 /CUMM) 0.6 L Absolute Monocytes (0.10 - 0.60 /CUMM) 0.5 Absolute Eosinophils (0.0 - 0.7 /CUMM) 0 Absolute Basophils (0.0 - 0.2 /CUMM) 0.1 PUBS MCHC (33.0 - 37.0 G/DL) 33.5 05/04 05/04 05/04 0440 0440 0020 Chemistry Sodium (137 - 145 mmol/L) Cancelled 119 *L Potassium (3.5 - 5.1 mmol/L) Cancelled 5.2 H Chloride (98 - 107 mmol/L) Cancelled 95 L Carbon Dioxide (22 - 30 mmol/L) Cancelled 18 L Anion Gap (5 - 16) Cancelled 6 BUN (9 - 20 mg/dL) Cancelled 41 H Creatinine (0.7 - 1.2 mg/dL) Cancelled 1.4 H Estimated GFR (>60 ml/min) 51 L Glucose (65 - 99 mg/dL) Cancelled 87 Calcium (8.4 - 10.2 mg/dL) Cancelled 8.2 L Phosphorus (2.5 - 4.5 mg/dL) Cancelled 5.1 H Magnesium (1.6 - 2.3 mg/dL) Cancelled 1.8 1.8 Total Bilirubin (0.2 - 1.3 mg/dL) Cancelled 0.6 AST (17 - 59 U/L) Cancelled 52 ALT (21 - 72 U/L) Cancelled 59 Troponin I (<0.11 ng/ml) 0.04 0.04 Albumin (3.5 - 5.0 g/dL) Cancelled 2.1 L Hematology CBC w Diff NO MAN DIFF REQ WBC (4.8 - 10.8 /CUMM) 13.1 H RBC (4.70 - 6.10 /CUMM) 4.03 L Hgb (14.0 - 18.0 G/DL) 11.8 L Hct (42 - 52 %) 35.4 L MCV (80.0 - 94.0 FL) 87.8 MCH (27.0 - 31.0 PG) 29.3 RDW (11.5 - 14.5 %) 15.1 H Plt Count (130 - 400 /CUMM) 334 MPV (7.4 - 10.4 FL) 6.6 L Gran % (42.2 - 75.2 %) 95.5 H Lymphocytes % (20.5 - 51.1 %) 3.5 L Monocytes % (1.7 - 9.3 %) 0.9 L Eosinophils % (0 - 5 %) 0.1 Basophils % (0.0 - 2.0 %) 0 L Absolute Granulocytes (1.4 - 6.5 /CUMM) 12.5 H Absolute Lymphocytes (1.2 - 3.4 /CUMM) 0.5 L Absolute Monocytes (0.10 - 0.60 /CUMM) 0.1 L Absolute Eosinophils (0.0 - 0.7 /CUMM) 0 Absolute Basophils (0.0 - 0.2 /CUMM) 0 PUBS MCHC (33.0 - 37.0 G/DL) 33.4 Serology Hepatitis A IgM Ab (NONREACTIVE) NONREACTIVE Hep Bs Antigen (NONREACTIVE) NONREACTIVE Hep B Core IgM Ab Conf (NONREACTIVE) NONREACTIVE Hepatitis C Antibody (NONREACTIVE) NONREACTIVE HIV 1&2 Ab Western Blot (NONREACTIVE) NONREACTIVE 05/04 05/04 05/03 05/03 0020 0020 2141 1855 Blood Gas pH (7.35 - 7.45 PH) 7.38 pCO2 (35 - 45 TORR) 25 L pO2 (80 - 100 TORR) 129 H HCO3 (21 - 28 MEQ/L) 14 L ABG O2 Sat (Measured) (>96.0 %) 98.0 P-50 (Temp Corrected) YES Carboxyhemoglobin (1.5 - 5.0 %) 0.5 L O2 Concentration % 4L Temperature (97.0 - 100.0 FARH) 99.1 O2 Delivery Method NC Chemistry Sodium (137 - 145 mmol/L) 116 *L Potassium (3.5 - 5.1 mmol/L) 5.3 H Chloride (98 - 107 mmol/L) 92 L Carbon Dioxide (22 - 30 mmol/L) 16 L Anion Gap (5 - 16) 8 BUN (9 - 20 mg/dL) 45 H Creatinine (0.7 - 1.2 mg/dL) 1.4 H Estimated GFR (>60 ml/min) 51 L BUN/Creatinine Ratio (7 - 25 %) 32.1 H Lactic Acid (0.7 - 2.1 mmol/L) 1.0 Hematology CBC w Diff Cancelled WBC Cancelled RBC Cancelled Hgb Cancelled Hct Cancelled MCV Cancelled MCH Cancelled RDW Cancelled Plt Count Cancelled MPV Cancelled PUBS MCHC Cancelled Miscellaneous Phlebotomy Draw Site RIGHT RADIAL 05/03 05/03 1845 1845 Toxicology Urine Opiates Screen (>2000 NG/ML) < 100.00 Methadone Screen (>300 NG/ML) < 40 Barbiturate Screen (>200 NG/ML) < 60 Ur Phencyclidine Scrn (>25 NG/ML) < 6.00 Amphetamines Screen (>1000 NG/ML) < 100 U Benzodiazepines Scrn (>200 NG/ML) < 85 Urine Cocaine Screen (>300 NG/ML) < 50 Urine Cannabis Screen (>50 NG/ML) < 5.00 Urines Urine Color (YEL,AMB,STR) YEL Urine Clarity (CLEAR) CLEAR Urine pH (5.0 - 8.0) 6.0 Ur Specific [place] (1.001 - 1.035) >= 1.030 Urine Protein (NEG,<30 MG/DL) >=300 H Urine Ketones (NEG) NEG Urine Nitrite (NEG) NEG Urine Bilirubin (NEG) NEG Urine Urobilinogen (0.1 - 1.0 EU/dl) 0.2 Ur Leukocyte Esterase (NEG) NEG Ur Microscopic SEDIMENT EXAMINED Urine RBC (0 - 5 /HPF) FEW H Urine WBC (0 - 2 /HPF) RARE Ur Epithelial Cells (NONE,FEW) RARE Urine Hemoglobin (NEG) SMALL H Urine Osmolality (300 - 1000 MOSM/KG) 562 Ur Random Creatinine (mg/dL) 105.5 Ur Random Sodium (30 - 90 mmol/L) < 5 L Ur Random Potassium (mmol/L) 76.7 Fraction Sodium Excret (<1% %) ND Urine Glucose (N MG/DL) NEG 05/03 1830 Chemistry Sodium (137 - 145 mmol/L) 118 *L Potassium (3.5 - 5.1 mmol/L) 7.2 *H Chloride (98 - 107 mmol/L) 88 L Carbon Dioxide (22 - 30 mmol/L) 20 L Anion Gap (5 - 16) 10 BUN (9 - 20 mg/dL) 54 H Creatinine (0.7 - 1.2 mg/dL) 1.7 H Estimated GFR (>60 ml/min) 41 L BUN/Creatinine Ratio (7 - 25 %) 31.8 H Glucose (65 - 99 mg/dL) 85 Serum Osmolality (285 - 295 MOSM/KG) 281 L Lactic Acid (0.7 - 2.1 mmol/L) 1.2 Calcium (8.4 - 10.2 mg/dL) 9.0 Total Bilirubin (0.2 - 1.3 mg/dL) 0.8 AST (17 - 59 U/L) 66 H ALT (21 - 72 U/L) 76 H Alkaline Phosphatase (< 127 U/L) 220 H Ammonia (9 - 30 umol/L) < 9 L Troponin I (<0.11 ng/ml) 0.04 Total Protein (6.3 - 8.2 g/dL) 6.0 L Albumin (3.5 - 5.0 g/dL) 3.0 L Globulin (1.9 - 4.2 gm/dL) 3.0 Albumin/Globulin Ratio (1.1 - 2.2 %) 1.0 L Amylase (30 - 110 U/L) 158 H Lipase (23 - 300 U/L) 799 H TSH (0.270 - 4.200 uIU/mL) 1.850 Free T4 (0.78 - 2.44 ng/dL) 1.18 Total T3 (0.97 - 1.69 ng/mL) 0.67 L Coagulation PT (9.4 - 12.5 SEC) 10.9 INR (0.90 - 1.17) 1.04 APTT (25 - 37 SEC) 32 Hematology CBC w Diff MAN DIFF ORDERED WBC (4.8 - 10.8 /CUMM) 15.3 H RBC (4.70 - 6.10 /CUMM) 5.11 Hgb (14.0 - 18.0 G/DL) 14.8 Hct (42 - 52 %) 44.9 MCV (80.0 - 94.0 FL) 87.8 MCH (27.0 - 31.0 PG) 29.0 RDW (11.5 - 14.5 %) 15.1 H Plt Count (130 - 400 /CUMM) 402 H MPV (7.4 - 10.4 FL) 6.7 L Gran % (42.2 - 75.2 %) 91.3 H Lymphocytes % (20.5 - 51.1 %) 5.2 L Monocytes % (1.7 - 9.3 %) 2.9 Eosinophils % (0 - 5 %) 0.1 Basophils % (0.0 - 2.0 %) 0.5 Absolute Granulocytes (1.4 - 6.5 /CUMM) 14.0 H Segmented Neutrophils (42.2 - 75.2 %) 90 H Band Neutrophils (0.0 - 5.0 %) 3 Absolute Lymphocytes (1.2 - 3.4 /CUMM) 0.8 L Lymphocytes (20.5 - 51.1 %) 4 L Monocytes (1.7 - 9.3 %) 3 Absolute Monocytes (0.10 - 0.60 /CUMM) 0.4 Absolute Eosinophils (0.0 - 0.7 /CUMM) 0 Absolute Basophils (0.0 - 0.2 /CUMM) 0.1 Platelet Estimate (ADEQUATE) ADEQUATE PUBS MCHC (33.0 - 37.0 G/DL) 33.0 Toxicology Acetaminophen (10.0 - 30.0 ug/mL) < 10.0 L Serum Alcohol (<10 MG/DL) < 10.0
--- NOTE | 2016-05-05 11:02 | PN- Pulmonary ---
Subjective HPI/Critical Care Issues: Doing well stable Afebrile Stable Awake & alert No SOB No nausea or vomiting Objective Current Medications: Current Medications Sig/Fidelina Start time Last Medication Dose Route Stop Time Status Admin Albuterol Sulfate 3 ML TID 05/04 1600 AC 05/05 INH 0838 Albuterol Sulfate 3 ML Q4H PRN 05/03 2145 DC INH Atorvastatin Calcium 80 MG 1700 05/04 1700 AC 05/04 PO 1849 Dextrose/Sodium 1,000 ML Q10H 05/04 1215 DC 05/04 Chloride IV 1215 Furosemide 40 MG ONCE ONE 05/05 2200 UNVr IV 05/05 2201 Furosemide 40 MG ONCE ONE 05/05 1030 DC 05/05 IV 05/05 1031 1035 Heparin Sodium 5,000 UNIT Q8 05/03 2200 AC 05/05 (Porcine) SC 0508 Ipratropium [place] 2.5 ML TID 05/04 1600 AC 05/05 INH 0838 Magnesium Sulfate 1 GM ONCE ONE 05/04 0930 DC 05/04 N/A 1 UNIT IV 05/04 1129 1158 Pantoprazole Sodium 40 MG DAILY 05/03 2245 AC 05/05 IV 1035 Patient Medication 1 UNIT ONE NR 05/04 1700 DC Teaching ED 05/04 1730 Sodium Chloride 3,000 MG TID 05/04 2200 AC 05/05 PO 1035 Sodium Chloride 1,000 ML Q10H 05/04 1430 DC 05/04 IV 1458 Sodium Chloride 1,000 ML Q10H 05/04 0130 DC 05/04 IV 0144 Vital Signs & I&O Last 24 Hrs of Vitals and I&O: Vital Signs Date Time Temp Pulse Resp B/P Pulse O2 O2 Flow FiO2 Ox Delivery Rate 05/05 0841 95 Room Air Room Air 05/05 0800 97.6 100 22 140/70 94 Room Air 05/05 0000 96.7 92 18 140/80 05/05 0000 96.7 92 18 140/80 96 Nasal 2.0L Cannula 05/05 0000 96 Nasal 2.0L Cannula 05/04 2200 88 18 134/79 05/04 2000 96.9 93 18 133/73 05/04 2000 94 Nasal 2.0L Cannula 05/04 1926 95 Nasal 2.0L Cannula 05/04 1800 90 20 118/67 05/04 1600 94 20 139/75 05/04 1600 97.3 94 20 132/78 99 Nasal 2.0L Cannula 05/04 1600 98 Nasal 2.0L Cannula 05/04 1400 60 26 148/84 05/04 1326 Room Air 05/04 1200 97.7 83 20 130/82 05/04 1200 98 Room Air Intake & Output 05/05 1600 05/05 0800 05/05 0000 Intake Total 100 620 Output Total 310 365 Balance -210 255 Intake, IV 400 Intake, Oral 100 220 Output, Urine 310 365 Impression/Plan Impression/Plan Impression/Plan: General Appearance Alert, Oriented X3, Cooperative, No Acute Distress HEENT dry mucous membranes Neck No JVD Cardiovascular Regular Rate, grade 1 systolic murmur Lungs decreased air entry Abdomen Normal Bowel Sounds, Soft, No Tenderness Neurological Normal Speech, Strength at 5/5 X4 Ext Extremities B/L LE swelling with redness, oozing necrotic wounds, non tender, pulses implapable IMPRESSION This is an unfortunate 66-year-old gentleman with history of hypertension, severe COPD with emphysema, previous ruptured aortic aneurysm status post stent placement, poor performance status, severe peripheral vascular disease with bilateral lower extremity necrotic ulcers on both sides related to severe peripheral vascular disease, chronic kidney disease with probable proteinuria, severe hyponatremia, electrolyte imbalance, black tarry stools by history with stable H&H initially with no active evidence of GI bleed, mediastinal lymphadenopathy, pulmonary fibrosis, mediastinal lymphadenopathy which needs to be investigated in the future now has the following issues * Improved altered mental status which is slowly improving most likely related to severe hyponatremia which appears to be syndrome of inappropriate ADH secretion * Bilateral lower extremity necrotic ulcers which needs to be investigated with probable infection with high white count * Hyperkalemia initially which seems to have improved since admission nephrology is on board last potassium 5.4 and patient seems to be adequately making urine now with chronic kidney disease and patient was taking lisinopril at home am not sure whether he was compliant with it which may have contributed to his hyperkalemia * Previous ruptured aneurysm which appears to be stable * History suggestive of GI bleed with black tarry stool with slightly reduced hemoglobin and hematocrit since admission GI on board * Esophageal lesion seen in the CT scan probably consistent with Guzmán's esophagus versus GERD versus malignancy hence he would need an upper endoscopy * Severe emphysema * Mild pulmonary fibrosis * Mediastinal lymphadenopathy which needs follow-up CT on a PET scan 1 stable * Severe peripheral vascular disease with lower extremity both arterial and venous insufficiency with probable cellulitis which may need to be debrided * Acute on chronic kidney disease * Chronic lower extremity edema which needs to be followed * Altered LFTs RECOMMENDATION * Watch his hemoglobin and hematocrit * Watch his stool does have active bleeding GI will do an endoscopy * Continue proton pump inhibitor * As needed nebulizer treatment * Replace magnesium * Watch his amylase lipase * Sodium mgt upto renal * Cont wound care and abx or no abx per ID Ok to the floor
--- NOTE | 2016-05-05 13:03 | PN- Vascular Surgery ---
Subjective Subjective: patient seen. no complaints. awaiting Lower extremity arterial PVR testing. Review of Systems Constitutional: Denies: no symptoms. Cardiovascular: Denies: chest pain. Respiratory: Denies: cough, short of breath. Hematologic/Endocrine: Denies: bruising, bleeding. Objective Vital Signs and I&Os Intake & Output 05/16 0800 05/16 0000 05/15 1600 05/15 0800 05/15 0000 Intake Total 500 360 Output Total 1000 200 Balance -500 160 Intake, Oral 500 360 Output, Urine 1000 200 Physical Exam: WD, WN male, NAD alert and oriented x3 sclera anicteric abdom soft,nt,nd LE dressings intact femoral and pedal pulses nonpalpable feet warm neuro grossly intact Results Last 48 Hours of Labs: Laboratory Tests 05/05 05/05 05/05 1025 0600 0415 Chemistry Sodium (137 - 145 mmol/L) 120 L 120 L Potassium (3.5 - 5.1 mmol/L) 4.6 4.9 Chloride (98 - 107 mmol/L) 95 L 96 L Carbon Dioxide (22 - 30 mmol/L) 19 L 20 L Anion Gap (5 - 16) 5 4 L BUN (9 - 20 mg/dL) 31 H 34 H Creatinine (0.7 - 1.2 mg/dL) 1.3 H 1.4 H Estimated GFR (>60 ml/min) 56 L 51 L Glucose (65 - 99 mg/dL) 154 H 109 H Calcium (8.4 - 10.2 mg/dL) 8.2 L 8.2 L Phosphorus (2.5 - 4.5 mg/dL) 3.3 3.9 Magnesium (1.6 - 2.3 mg/dL) 2.0 2.1 Total Bilirubin (0.2 - 1.3 mg/dL) 0.3 0.5 AST (17 - 59 U/L) 121 H 110 H ALT (21 - 72 U/L) 64 66 Albumin (3.5 - 5.0 g/dL) 2.1 L 2.1 L Triglycerides (<150 mg/dL) 97 Cholesterol (< 200 MG/DL) 146 LDL Cholesterol, Calc (65 - 129 mg/dL) 76 HDL Cholesterol (40 - 60 mg/dL) 51 Cholesterol/HDL Ratio (0.00 - 4.88 %) 3 Amylase (30 - 110 U/L) Cancelled 105 Lipase (23 - 300 U/L) Cancelled 559 H Hematology CBC w Diff NO MAN DIFF REQ WBC (4.8 - 10.8 /CUMM) 9.8 RBC (4.70 - 6.10 /CUMM) 3.84 L Hgb (14.0 - 18.0 G/DL) 11.1 L Hct (42 - 52 %) 33.7 L MCV (80.0 - 94.0 FL) 87.8 MCH (27.0 - 31.0 PG) 29.0 RDW (11.5 - 14.5 %) 15.1 H Plt Count (130 - 400 /CUMM) 340 MPV (7.4 - 10.4 FL) 6.2 L Gran % (42.2 - 75.2 %) 83.1 H Lymphocytes % (20.5 - 51.1 %) 9.4 L Monocytes % (1.7 - 9.3 %) 6.4 Eosinophils % (0 - 5 %) 0.4 Basophils % (0.0 - 2.0 %) 0.7 Absolute Granulocytes (1.4 - 6.5 /CUMM) 8.2 H Absolute Lymphocytes (1.2 - 3.4 /CUMM) 0.9 L Absolute Monocytes (0.10 - 0.60 /CUMM) 0.6 Absolute Eosinophils (0.0 - 0.7 /CUMM) 0 Absolute Basophils (0.0 - 0.2 /CUMM) 0.1 PUBS MCHC (33.0 - 37.0 G/DL) 33.0 05/05 05/04 05/04 05/04 0000 2000 1625 1210 Chemistry Sodium (137 - 145 mmol/L) 119 *L 117 *L 118 *L 119 *L Potassium (3.5 - 5.1 mmol/L) 4.9 5.4 H 5.1 5.5 H Chloride (98 - 107 mmol/L) 94 L 92 L 93 L 93 L Carbon Dioxide (22 - 30 mmol/L) 18 L 21 L 20 L 18 L Anion Gap (5 - 16) 7 4 L 5 8 BUN (9 - 20 mg/dL) 35 H 38 H 37 H 39 H Creatinine (0.7 - 1.2 mg/dL) 1.4 H 1.4 H 1.4 H 1.4 H Estimated GFR (>60 ml/min) 51 L 51 L 51 L 51 L BUN/Creatinine Ratio (7 - 25 %) 25.0 Glucose (65 - 99 mg/dL) 115 H 114 H 94 Calcium (8.4 - 10.2 mg/dL) 8.0 L 8.0 L 8.3 L Phosphorus (2.5 - 4.5 mg/dL) 4.1 4.6 H 5.6 H Magnesium (1.6 - 2.3 mg/dL) 2.2 2.4 H 2.6 H Total Bilirubin (0.2 - 1.3 mg/dL) 0.4 0.3 0.6 AST (17 - 59 U/L) 103 H 99 H 81 H ALT (21 - 72 U/L) 60 65 59 Albumin (3.5 - 5.0 g/dL) 2.1 L 2.1 L 2.2 L Hematology CBC w Diff NO MAN DIFF REQ WBC (4.8 - 10.8 /CUMM) 11.4 H RBC (4.70 - 6.10 /CUMM) 4.11 L Hgb (14.0 - 18.0 G/DL) 11.9 L Hct (42 - 52 %) 35.4 L MCV (80.0 - 94.0 FL) 86.2 MCH (27.0 - 31.0 PG) 28.9 RDW (11.5 - 14.5 %) 15.2 H Plt Count (130 - 400 /CUMM) 321 MPV (7.4 - 10.4 FL) 6.4 L Gran % (42.2 - 75.2 %) 89.6 H Lymphocytes % (20.5 - 51.1 %) 5.2 L Monocytes % (1.7 - 9.3 %) 4.7 Eosinophils % (0 - 5 %) 0.1 Basophils % (0.0 - 2.0 %) 0.4 Absolute Granulocytes (1.4 - 6.5 /CUMM) 10.3 H Absolute Lymphocytes (1.2 - 3.4 /CUMM) 0.6 L Absolute Monocytes (0.10 - 0.60 /CUMM) 0.5 Absolute Eosinophils (0.0 - 0.7 /CUMM) 0 Absolute Basophils (0.0 - 0.2 /CUMM) 0.1 PUBS MCHC (33.0 - 37.0 G/DL) 33.5 05/04 05/04 05/04 0815 0440 0440 Chemistry Sodium (137 - 145 mmol/L) 120 L Cancelled 119 *L Potassium (3.5 - 5.1 mmol/L) 5.4 H Cancelled 5.2 H Chloride (98 - 107 mmol/L) 95 L Cancelled 95 L Carbon Dioxide (22 - 30 mmol/L) 18 L Cancelled 18 L Anion Gap (5 - 16) 7 Cancelled 6 BUN (9 - 20 mg/dL) 39 H Cancelled 41 H Creatinine (0.7 - 1.2 mg/dL) 1.4 H Cancelled 1.4 H Estimated GFR (>60 ml/min) 51 L 51 L Glucose (65 - 99 mg/dL) 91 Cancelled 87 Calcium (8.4 - 10.2 mg/dL) 8.2 L Cancelled 8.2 L Phosphorus (2.5 - 4.5 mg/dL) 5.3 H Cancelled 5.1 H Magnesium (1.6 - 2.3 mg/dL) 1.8 Cancelled 1.8 Total Bilirubin (0.2 - 1.3 mg/dL) 0.5 Cancelled 0.6 AST (17 - 59 U/L) 50 Cancelled 52 ALT (21 - 72 U/L) 54 Cancelled 59 Troponin I (<0.11 ng/ml) 0.04 Albumin (3.5 - 5.0 g/dL) 2.1 L Cancelled 2.1 L Hematology CBC w Diff NO MAN DIFF REQ WBC (4.8 - 10.8 /CUMM) 13.1 H RBC (4.70 - 6.10 /CUMM) 4.03 L Hgb (14.0 - 18.0 G/DL) 11.8 L Hct (42 - 52 %) 35.4 L MCV (80.0 - 94.0 FL) 87.8 MCH (27.0 - 31.0 PG) 29.3 RDW (11.5 - 14.5 %) 15.1 H Plt Count (130 - 400 /CUMM) 334 MPV (7.4 - 10.4 FL) 6.6 L Gran % (42.2 - 75.2 %) 95.5 H Lymphocytes % (20.5 - 51.1 %) 3.5 L Monocytes % (1.7 - 9.3 %) 0.9 L Eosinophils % (0 - 5 %) 0.1 Basophils % (0.0 - 2.0 %) 0 L Absolute Granulocytes (1.4 - 6.5 /CUMM) 12.5 H Absolute Lymphocytes (1.2 - 3.4 /CUMM) 0.5 L Absolute Monocytes (0.10 - 0.60 /CUMM) 0.1 L Absolute Eosinophils (0.0 - 0.7 /CUMM) 0 Absolute Basophils (0.0 - 0.2 /CUMM) 0 PUBS MCHC (33.0 - 37.0 G/DL) 33.4 Serology Hepatitis A IgM Ab (NONREACTIVE) NONREACTIVE Hep Bs Antigen (NONREACTIVE) NONREACTIVE Hep B Core IgM Ab Conf (NONREACTIVE) NONREACTIVE Hepatitis C Antibody (NONREACTIVE) NONREACTIVE HIV 1&2 Ab Western Blot (NONREACTIVE) NONREACTIVE 05/04 05/04 05/04 05/03 05/03 0020 0020 0020 2141 4915 Blood Gas pH (7.35 - 7.45 PH) 7.38 pCO2 (35 - 45 TORR) 25 L pO2 (80 - 100 TORR) 129 H HCO3 (21 - 28 MEQ/L) 14 L ABG O2 Sat (Measured) (>96.0 %) 98.0 P-50 (Temp Corrected) YES Carboxyhemoglobin (1.5 - 5.0 %) 0.5 L O2 Concentration % 4L Temperature (97.0 - 100.0 FARH) 99.1 O2 Delivery Method NC Chemistry Sodium (137 - 145 mmol/L) 116 *L Potassium (3.5 - 5.1 mmol/L) 5.3 H Chloride (98 - 107 mmol/L) 92 L Carbon Dioxide (22 - 30 mmol/L) 16 L Anion Gap (5 - 16) 8 BUN (9 - 20 mg/dL) 45 H Creatinine (0.7 - 1.2 mg/dL) 1.4 H Estimated GFR (>60 ml/min) 51 L BUN/Creatinine Ratio (7 - 25 %) 32.1 H Lactic Acid (0.7 - 2.1 mmol/L) 1.0 Magnesium (1.6 - 2.3 mg/dL) 1.8 Troponin I (<0.11 ng/ml) 0.04 Hematology CBC w Diff Cancelled WBC Cancelled RBC Cancelled Hgb Cancelled Hct Cancelled MCV Cancelled MCH Cancelled RDW Cancelled Plt Count Cancelled MPV Cancelled PUBS MCHC Cancelled Miscellaneous Phlebotomy Draw Site RIGHT RADIAL 05/03 05/03 1845 1845 Toxicology Urine Opiates Screen (>2000 NG/ML) < 100.00 Methadone Screen (>300 NG/ML) < 40 Barbiturate Screen (>200 NG/ML) < 60 Ur Phencyclidine Scrn (>25 NG/ML) < 6.00 Amphetamines Screen (>1000 NG/ML) < 100 U Benzodiazepines Scrn (>200 NG/ML) < 85 Urine Cocaine Screen (>300 NG/ML) < 50 Urine Cannabis Screen (>50 NG/ML) < 5.00 Urines Urine Color (YEL,AMB,STR) YEL Urine Clarity (CLEAR) CLEAR Urine pH (5.0 - 8.0) 6.0 Ur Specific [place] (1.001 - 1.035) >= 1.030 Urine Protein (NEG,<30 MG/DL) >=300 H Urine Ketones (NEG) NEG Urine Nitrite (NEG) NEG Urine Bilirubin (NEG) NEG Urine Urobilinogen (0.1 - 1.0 EU/dl) 0.2 Ur Leukocyte Esterase (NEG) NEG Ur Microscopic SEDIMENT EXAMINED Urine RBC (0 - 5 /HPF) FEW H Urine WBC (0 - 2 /HPF) RARE Ur Epithelial Cells (NONE,FEW) RARE Urine Hemoglobin (NEG) SMALL H Urine Osmolality (300 - 1000 MOSM/KG) 562 Ur Random Creatinine (mg/dL) 105.5 Ur Random Sodium (30 - 90 mmol/L) < 5 L Ur Random Potassium (mmol/L) 76.7 Fraction Sodium Excret (<1% %) ND Urine Glucose (N MG/DL) NEG 05/03 1830 Chemistry Sodium (137 - 145 mmol/L) 118 *L Potassium (3.5 - 5.1 mmol/L) 7.2 *H Chloride (98 - 107 mmol/L) 88 L Carbon Dioxide (22 - 30 mmol/L) 20 L Anion Gap (5 - 16) 10 BUN (9 - 20 mg/dL) 54 H Creatinine (0.7 - 1.2 mg/dL) 1.7 H Estimated GFR (>60 ml/min) 41 L BUN/Creatinine Ratio (7 - 25 %) 31.8 H Glucose (65 - 99 mg/dL) 85 Serum Osmolality (285 - 295 MOSM/KG) 281 L Lactic Acid (0.7 - 2.1 mmol/L) 1.2 Calcium (8.4 - 10.2 mg/dL) 9.0 Total Bilirubin (0.2 - 1.3 mg/dL) 0.8 AST (17 - 59 U/L) 66 H ALT (21 - 72 U/L) 76 H Alkaline Phosphatase (< 127 U/L) 220 H Ammonia (9 - 30 umol/L) < 9 L Troponin I (<0.11 ng/ml) 0.04 Total Protein (6.3 - 8.2 g/dL) 6.0 L Albumin (3.5 - 5.0 g/dL) 3.0 L Globulin (1.9 - 4.2 gm/dL) 3.0 Albumin/Globulin Ratio (1.1 - 2.2 %) 1.0 L Amylase (30 - 110 U/L) 158 H Lipase (23 - 300 U/L) 799 H TSH (0.270 - 4.200 uIU/mL) 1.850 Free T4 (0.78 - 2.44 ng/dL) 1.18 Total T3 (0.97 - 1.69 ng/mL) 0.67 L Coagulation PT (9.4 - 12.5 SEC) 10.9 INR (0.90 - 1.17) 1.04 APTT (25 - 37 SEC) 32 Hematology CBC w Diff MAN DIFF ORDERED WBC (4.8 - 10.8 /CUMM) 15.3 H RBC (4.70 - 6.10 /CUMM) 5.11 Hgb (14.0 - 18.0 G/DL) 14.8 Hct (42 - 52 %) 44.9 MCV (80.0 - 94.0 FL) 87.8 MCH (27.0 - 31.0 PG) 29.0 RDW (11.5 - 14.5 %) 15.1 H Plt Count (130 - 400 /CUMM) 402 H MPV (7.4 - 10.4 FL) 6.7 L Gran % (42.2 - 75.2 %) 91.3 H Lymphocytes % (20.5 - 51.1 %) 5.2 L Monocytes % (1.7 - 9.3 %) 2.9 Eosinophils % (0 - 5 %) 0.1 Basophils % (0.0 - 2.0 %) 0.5 Absolute Granulocytes (1.4 - 6.5 /CUMM) 14.0 H Segmented Neutrophils (42.2 - 75.2 %) 90 H Band Neutrophils (0.0 - 5.0 %) 3 Absolute Lymphocytes (1.2 - 3.4 /CUMM) 0.8 L Lymphocytes (20.5 - 51.1 %) 4 L Monocytes (1.7 - 9.3 %) 3 Absolute Monocytes (0.10 - 0.60 /CUMM) 0.4 Absolute Eosinophils (0.0 - 0.7 /CUMM) 0 Absolute Basophils (0.0 - 0.2 /CUMM) 0.1 Platelet Estimate (ADEQUATE) ADEQUATE PUBS MCHC (33.0 - 37.0 G/DL) 33.0 Toxicology Acetaminophen (10.0 - 30.0 ug/mL) < 10.0 L Serum Alcohol (<10 MG/DL) < 10.0 Assessment/Plan Assessment/Plan 1. Ulcers: Continue current wound care. 2. Peripheral vascular disease. Awaiting LE arterial testing. May need CTangiogram aorta and runoff when stable from electrolyte/renal status. Pending arterial testing, may need revascularization. Problem List: 1. Ulcers of both lower legs, limited to breakdown of skin 2. Peripheral vascular disease Core Measures/Miscellaneous Venous Thromboembolism VTE Risk Factors: Immobility, paresis VTE Contraindications: No Contraindications VTE Prophylaxis Ordered Inpt: Pharm- Heparin VTE Diagnosis: No VTE Type: NONE VTE Confirmed by (Test): NONE Beta Malvin Is Beta Malvin a Home Med? Yes Antibiotics Is Patient on Antibiotics? Yes
[2016-05-05 16:30] VITALS: BP 138/72
[2016-05-05 22:00] VITALS: BP 140/80
[2016-05-05 23:37] VITALS: BP 140/80
[2016-05-06 05:55] LABS: ABSOLUTE BASOPHIL COUNT 0 /CUMM (0.0-0.2); ABSOLUTE EOSINOPHIL COUNT 0 /CUMM (0.0-0.7); ABSOLUTE GRANULOCYTE CT 7.7 /CUMM (1.4-6.5); ABSOLUTE LYMPH COUNT 1.1 /CUMM (1.2-3.4); ABSOLUTE MONOCYTE COUNT 0.4 /CUMM (0.10-0.60); BASOPHIL % 0.4 % (0.0-2.0); EOSINOPHIL % 0.2 % (0-5); GRANULOCYTE % 83.4 % (42.2-75.2); HEMATOCRIT 33.8 % (42-52); MEAN CORPUSCULAR HGB 29.1 PG (27.0-31.0); MEAN CORPUSCULAR HGB CONC 33.7 G/DL (33.0-37.0); MEAN CORPUSCULAR VOLUME 86.6 FL (80.0-94.0); MEAN PLATELET VOLUME 6.6 FL (7.4-10.4); PLATELET COUNT 325 /CUMM (130-400); RBC DISTRIBUTION WIDTH 15.4 % (11.5-14.5); RED BLOOD CELL CT 3.91 /CUMM (4.70-6.10); WHITE BLOOD CELL COUNT 9.2 /CUMM (4.8-10.8)
[2016-05-06 08:00] VITALS: BP 152/84
--- NOTE | 2016-05-06 08:15 | PN- Resident CRCU ---
Subjective HPI/CRCU Issues: I saw and examined the patient today. He is doing much better today, Alert and oriented X3. He reports dry mouth. No significant overnight events. CRCU issues 1. Hyponatremia - 125 today. 2. Hyperkalemia - resolved. even 3.6 today after 2doses of furosemide. 3. Guiac postive black tarry stools - undergoing endoscopy tomorrow. 4. Bilateral lower extremity wounds - vascular on board, PVR tomorrow. Objective Vital Signs & I&O Last 8 Hrs of Vitals and I&O: Intake & Output 05/06 1600 Intake Total Output Total Balance Patient 92.278 kg Weight Vital signs Afebrile HR - high 90's - 100 BP - 140-150/84mmHg On room air - saturating well. I's - Out's - 1612/2810 with a negative balance of 1200ml. On Espinoza catheter - urinating well. Exam General Appearance: well developed/nourished, no apparent distress, alert, awake , comfortable, mild distress Head: atraumatic, normal appearance Ears, Nose, Throat: normal pharynx, normal ENT inspection, hearing grossly normal Neck: normal inspection, supple, full range of motion Respiratory: normal breath sounds, chest non-tender, no respiratory distress, lungs clear Cardiovascular: regular rate/rhythm, normal peripheral pulses Gastrointestinal: normal bowel sounds, soft, non-tender Extremities: slow capillary refill, weak femoral pulses. Cranial Nerves: normal hearing, normal speech, PERRL Skin: bilateral necrotic wounds in the anterior pozo region. Current Medications: Current Medications Sig/Fidelina Start time Last Medication Dose Route Stop Time Status Admin Albuterol Sulfate 3 ML TID 05/04 1600 AC 05/06 INH 0814 Atorvastatin Calcium 80 MG 1700 05/04 1700 AC 05/05 PO 1635 Furosemide 40 MG ONCE ONE 05/05 2200 DC 05/05 IV 05/05 2201 2248 Furosemide 40 MG ONCE ONE 05/05 1030 DC 05/05 IV 05/05 1031 1035 Heparin Sodium 5,000 UNIT Q8 05/03 2200 AC 05/06 (Porcine) SC 0545 Ipratropium [place] 2.5 ML TID 05/04 1600 AC 05/06 INH 0814 Magnesium Oxide 400 MG ONCE ONE 05/06 0845 DC 05/06 PO 05/06 0846 1008 Magnesium Oxide 400 MG ONE ONE 05/05 1145 DC 05/05 PO 05/05 1146 1233 Magnesium Sulfate 1 GM ONCE ONE 05/05 1130 CAN Dextrose/Water 100 ML IV 05/05 1529 Pantoprazole Sodium 40 MG DAILY 05/03 2245 AC 05/06 IV 1008 Potassium Chloride 40 MEQ ONCE ONE 05/06 0845 DC 05/06 PO 05/06 0846 1008 Sodium Chloride 3,000 MG TID 05/04 2200 AC 05/06 PO 1008 Impression/Plan Impression/Problem List Impression: Patient is a 66-year-old male with past medical history significant for hypertension, AAA repair status post stent placement, severe COPD, peripheral vascular disease causing necrotic ulcers bilaterally below the knees, mal nutrition, pulmonary fibrosis and mediastinal lymphadenopathy came to ER yesterday due to altered mental status. He was admitted to ICU because of hyponatremia around 118. He is also found to have black tarry guaiac-positive stools in the ER. He is admitted to ICU for close monitoring and electrolytes are checked every 4 hours. He is given NS initially which was eventually changed to salt tablets 3g TID with 800ml fluid restriction. He is doing well now with sodium level of 125. Not on any fluids. Problem List: 1. Altered mental status 2. Hyponatremia syndrome 3. Acute hyperkalemia 4. Peripheral vascular disease 5. Ulcers of both lower legs, limited to breakdown of skin Pain Ratin Tomorrow's Labs & Rationales: ICU bundle CBC Plan Respiratory: History of COPD (severe emphysema) * Chronic and stable - respiratory therapy on board and on albuterol inhaler. * presented with altered mentation, however ABG is normal in ER * Intially on 3L of oxygen at presentation, currently saturating well on room air. * Had some dry cough without and phlegm production * Chest X ray shows (on 05/03) - Nonspecific opacities at the left lung base most likely reflect atelectasis,although early consolidation could appear similarly. * Chest CT suggestive of Chronic emphysema and mild pulmonary fibrosis. * Received a single dose of ceftriaxone and azithromycin in ER for suspected pneumonia as he had white count along with evolving pneumonia in CXR. * Currently white count dropped down, not on any more antibiotics Mediastinal lymphadenopathy on Chest CT * Needs follow up with PET CT scan once stable * Currently suspiscious for metastatic disease vs lymphoma * Current hyponatremia is suspected secondary to SIADH (probably from metastatic disease). Infectious Diseases: Suspected infection secondary to pneumonia/LE cellulitis * Received single dose of antibiotics - ceftriaxone, azithromycin for CAP and a dose of vanco to cover MRSA * ID - is consulted, no current empiric antibiotics suggested. * White count at admission is 15.3 which came down to 9.2 today and remained afebrile since admission. * will monitor closely. Cardiovascular: History of hypertension: * On lisinopril/HCTZ at home * Currently on hold secondary to electrolyte abnormalities * Yesterday received 2 doses of IV furosemide 40mg. * Current BP is running high 140-150/80mmHg. History of AAA repair with Aorto iliac stent graft in place: * Femoral pulses are barely palpable * On Atorvastatin 80mg. * Undergoing to CT angio today * Planning for PVR later. * Vascular on board. Hematology: Stable Metabolic: Hyponatremia: Suspected secondary to SIADH/increased free water intake in the setting of DELORIS and diuretic intake. Sr.Osmolarity of 281 and Urine osmolarity of 562 at the time of admission Mediastinal lymphadenopathy secondary to metastatic disease vs lymphoma - requiring further assessment PET scan Currently on sodium tablets 3g TID and fluid restriction of 800ml/day Monitoring electrolytes q4hrs. OFF lisinopril/HCT and 2 doses of furosemide 40mg IV given yesterday. Hyperkalemia * Potassium at admission is 7.2 - now 3.6 (repleted today) * Received IV insulin and dextrose, IV calcium gluconate, Kayexalate in ER. * Probably secondary to lisinopril or increased aldosterone response * received 2 doses of furosemide today. Elevated creatinine level * Creatinine at admission is 1.7 (baseline 1.5) * Today it is 1.4 - after fluids, diuretics * He is back to baseline. Hypomagnesemia * Mg of 1.8 at admission - today 1.7 * repleted today * will recheck and replete as needed. Cortisol level today morning is 33 - normal. Alimentary: Suspected pancreatitis at admission - * ruled out as no symptoms and no inflammation on CT scan Esophageal lesion on CT scan * Esophageal wall thickening and debris within the esophagus as above. Consider endoscopy or esophagram for further evaluation. Sigmoid diverticulosis without any diverticulitis * Evident on CT scan * Curretnly stable. Neurological: Intact Skin: Bilateral LE necrotic ulcers secondary to peripheral vascular disease * femoral pulses are weak and had a history of repaired AAA aneurysm. * Vascular sugery is consulted. * Dressing and wound care suggested. * suggested empiric antibiotics and arterial PVR testing. DVT/Prophylaxis: pharmacological Code Status: Do Not Resucitate/Intubat
--- NOTE | 2016-05-06 12:03 | PN- Pulmonary ---
Subjective HPI/Critical Care Issues: He is doing much better today, Alert and oriented X3. He reports dry mouth. No significant overnight events. CRCU issues 1. Hyponatremia - 125 today. 2. Hyperkalemia - resolved. even 3.6 today after 2doses of furosemide. 3. Guiac postive black tarry stools - undergoing endoscopy tomorrow. 4. Bilateral lower extremity wounds - vascular on board, PVR tomorrow. Objective Current Medications: Current Medications Sig/Fidelina Start time Last Medication Dose Route Stop Time Status Admin Albuterol Sulfate 3 ML TID 05/04 1600 AC 05/06 INH 0814 Atorvastatin Calcium 80 MG 1700 05/04 1700 AC 05/05 PO 1635 Furosemide 40 MG ONCE ONE 05/05 2200 DC 05/05 IV 05/05 2201 224 Heparin Sodium 5,000 UNIT Q8 05/03 2200 AC 05/06 (Porcine) SC 0545 Ipratropium [place] 2.5 ML TID 05/04 1600 AC 05/06 INH 0814 Magnesium Oxide 400 MG ONCE ONE 05/06 0845 DC 05/06 PO 05/06 0846 1008 Pantoprazole Sodium 40 MG DAILY 05/03 2245 AC 05/06 IV 1008 Potassium Chloride 40 MEQ ONCE ONE 05/06 0845 DC 05/06 PO 05/06 0846 1008 Sodium Chloride 3,000 MG TID 05/040 AC 05/06 PO 1008 Vital Signs & I&O Last 24 Hrs of Vitals and I&O: Vital Signs Date Time Temp Pulse Resp B/P Pulse O2 O2 Flow FiO2 Ox Delivery Rate 05/06 08 98.3 97 20 152/84 05/06 08 98.3 97 20 152/84 93 Room Air 05/06 0800 93 Room Air 05/05 2337 98.6 93 18 140/80 05/05 220 98.6 94 18 140/80 94 Room Air 05/05 1918 95 Room Air Room Air 05/05 1630 97.1 103 20 138/72 96 Room Air Intake & Output 05/06 1600 05/06 0800 05/06 0000 Intake Total 1000 Output Total 1800 850 Balance -1800 150 Intake, Oral 1000 Output, Urine 1800 850 Patient 203 lb Weight Impression/Plan Impression/Plan Impression/Plan: General Appearance Alert, Oriented X3, Cooperative, No Acute Distress HEENT dry mucous membranes Neck No JVD Cardiovascular Regular Rate, grade 1 systolic murmur Lungs decreased air entry Abdomen Normal Bowel Sounds, Soft, No Tenderness Neurological Normal Speech, Strength at 5/5 X4 Ext Extremities B/L LE swelling with redness, oozing necrotic wounds, non tender, pulses implapable IMPRESSION This is an unfortunate 66-year-old gentleman with history of hypertension, severe COPD with emphysema, previous ruptured aortic aneurysm status post stent placement, poor performance status, severe peripheral vascular disease with bilateral lower extremity necrotic ulcers on both sides related to severe peripheral vascular disease, chronic kidney disease with probable proteinuria, severe hyponatremia, electrolyte imbalance, black tarry stools by history with stable H&H initially with no active evidence of GI bleed, mediastinal lymphadenopathy, pulmonary fibrosis, mediastinal lymphadenopathy which needs to be investigated in the future now has the following issues * Improved altered mental status which is slowly improving most likely related to severe hyponatremia which appears to be syndrome of inappropriate ADH secretion * Bilateral lower extremity necrotic ulcers which needs to be investigated with probable infection with high white count * Hyperkalemia initially which seems to have improved since admission nephrology is on board last potassium 5.4 and patient seems to be adequately making urine now with chronic kidney disease and patient was taking lisinopril at home am not sure whether he was compliant with it which may have contributed to his hyperkalemia * Previous ruptured aneurysm which appears to be stable * History suggestive of GI bleed with black tarry stool with slightly reduced hemoglobin and hematocrit since admission GI on board * Esophageal lesion seen in the CT scan probably consistent with Guzmán's esophagus versus GERD versus malignancy hence he would need an upper endoscopy * Severe emphysema * Mild pulmonary fibrosis * Mediastinal lymphadenopathy which needs follow-up CT on a PET scan 1 stable * Severe peripheral vascular disease with lower extremity both arterial and venous insufficiency with probable cellulitis which may need to be debrided * Acute on chronic kidney disease * Chronic lower extremity edema which needs to be followed * Altered LFTs RECOMMENDATION * HOld on ct abd with ivc for now * Watch his hemoglobin and hematocrit daily * EGD soon * Continue proton pump inhibitor * As needed nebulizer treatment not atc * Watch his amylase lipase * Sodium mgt upto renal * Cont wound care and abx or no abx per ID Ok to the floor
--- NOTE | 2016-05-06 13:43 | PN- Nephrology ---
Assessment/Plan Assessment: DELORIS: Improved. Prerenal azotemia suspected CTD stage III: Renal function back to baseline Hyperkalemia: Due to DELORIS on CKD while on an URSULA inhibitor. K improved. Hyponatremia: Thiazide associated however cannot rule out underlying SIADH; would avoid thiazide diuretics permanently. Continue fluid restriction. Suggestion: as above Subjective Subjective: No acute events Taking by mouth Denies bright red blood per rectum or dark tarry stools Review of Systems: No fever or chills No shortness of breath or chest pain Objective Vital Signs and I&Os Vital Signs Date Time Temp Pulse Resp B/P Pulse O2 O2 Flow FiO2 Ox Delivery Rate 05/06 0830 97 Room Air Room Air 05/06 0800 98.3 97 20 152/84 05/06 0800 98.3 97 20 152/84 93 Room Air 05/06 0800 93 Room Air 05/05 2337 98.6 93 18 140/80 05/05 2200 98.6 94 18 140/80 94 Room Air 05/05 1918 95 Room Air Room Air 05/05 1630 97.1 103 20 138/72 96 Room Air Intake & Output 05/06 1600 05/06 0400 05/05 1600 05/05 0400 05/04 1600 05/04 0400 Intake Total 1000 129 163 8261 1000 Output Total 9615 580 9829 761 097 6651 Balance -1800 150 -1674 882 8495 -150 Intake, IV 40 400 1657 1000 Intake, Oral 1000 572 220 360 Number 1 0 Bowel Movements Output, Urine 3698 714 6296 709 445 5426 Patient 203 lb 203 lb Weight Physical Exam: General: NAD, A+O x3. HEENT: NC/AT. No icterus. Moist mucosa Neck: negative for ELISABETH, JVD CV: RRR, no m/r/g Pulm: CTAB, no rales Abd: soft, NT/ND, negative renal bruits Lower Ext:legs bandaged Upper Ext: no AVFs or AVGs Back: negative for CVA tenderness Neuro: neg tremor, asterixis Skin: no rash, jaundice : no sharma catheter Current Medications: Current Medications Sig/Fidelina Start time Last Medication Dose Route Stop Time Status Admin Albuterol Sulfate 3 ML Q4P PRN 05/06 1315 AC INH Albuterol Sulfate 3 ML TID 05/04 1600 DC 05/06 INH 0814 Atorvastatin Calcium 80 MG 1700 05/04 1700 AC 05/05 PO 1635 Furosemide 40 MG ONCE ONE 05/05 2200 DC 05/05 IV 05/05 2201 2248 Heparin Sodium 5,000 UNIT Q8 05/03 2200 AC 05/06 (Porcine) SC 0545 Ipratropium [place] 2.5 ML Q4P PRN 05/06 1315 AC INH Ipratropium [place] 2.5 ML TID 05/04 1600 DC 05/06 INH 0814 Magnesium Oxide 400 MG ONCE ONE 05/06 845 DC 05/06 PO 05/06 0846 1008 Pantoprazole Sodium 40 MG DAILY 05/03 2245 AC 05/06 IV 1008 Potassium Chloride 40 MEQ ONCE ONE 05/06 845 DC 05/06 PO 05/06 0846 1008 Sodium Chloride 3,000 MG TID 05/04 2200 AC 05/06 PO 1008 Results Pertinent Lab Results: Laboratory Tests 05/06 05/06 05/06 1200 0800 0350 Chemistry Sodium (137 - 145 mmol/L) 129 L 125 L Potassium (3.5 - 5.1 mmol/L) 3.9 3.6 Chloride (98 - 107 mmol/L) 99 94 L Carbon Dioxide (22 - 30 mmol/L) 24 23 Anion Gap (5 - 16) 6 8 BUN (9 - 20 mg/dL) 28 H 30 H Creatinine (0.7 - 1.2 mg/dL) 1.3 H 1.4 H Estimated GFR (>60 ml/min) 56 L 51 L BUN/Creatinine Ratio (7 - 25 %) 21.5 Glucose (65 - 99 mg/dL) 93 Calcium (8.4 - 10.2 mg/dL) 8.1 L Phosphorus (2.5 - 4.5 mg/dL) 4.7 H Magnesium (1.6 - 2.3 mg/dL) 1.7 Total Bilirubin (0.2 - 1.3 mg/dL) 0.5 AST (17 - 59 U/L) 99 H ALT (21 - 72 U/L) 69 Albumin (3.5 - 5.0 g/dL) 2.3 L Amylase (30 - 110 U/L) 101 Lipase (23 - 300 U/L) 519 H Cortisol AM Sample (4.46 - 22.7 ug/dL) 33.2 H Hematology CBC w Diff NO MAN DIFF REQ WBC (4.8 - 10.8 /CUMM) 9.2 RBC (4.70 - 6.10 /CUMM) 3.91 L Hgb (14.0 - 18.0 G/DL) 11.4 L Hct (42 - 52 %) 33.8 L MCV (80.0 - 94.0 FL) 86.6 MCH (27.0 - 31.0 PG) 29.1 RDW (11.5 - 14.5 %) 15.4 H Plt Count (130 - 400 /CUMM) 325 MPV (7.4 - 10.4 FL) 6.6 L Gran % (42.2 - 75.2 %) 83.4 H Lymphocytes % (20.5 - 51.1 %) 11.9 L Monocytes % (1.7 - 9.3 %) 4.1 Eosinophils % (0 - 5 %) 0.2 Basophils % (0.0 - 2.0 %) 0.4 Absolute Granulocytes (1.4 - 6.5 /CUMM) 7.7 H Absolute Lymphocytes (1.2 - 3.4 /CUMM) 1.1 L Absolute Monocytes (0.10 - 0.60 /CUMM) 0.4 Absolute Eosinophils (0.0 - 0.7 /CUMM) 0 Absolute Basophils (0.0 - 0.2 /CUMM) 0 PUBS MCHC (33.0 - 37.0 G/DL) 33.7 05/05 05/05 05/05 1651 1025 0600 Chemistry Sodium (137 - 145 mmol/L) 123 L 120 L Potassium (3.5 - 5.1 mmol/L) 4.1 4.6 Chloride (98 - 107 mmol/L) 95 L 95 L Carbon Dioxide (22 - 30 mmol/L) 22 19 L Anion Gap (5 - 16) 6 5 BUN (9 - 20 mg/dL) 33 H 31 H Creatinine (0.7 - 1.2 mg/dL) 1.5 H 1.3 H Estimated GFR (>60 ml/min) 47 L 56 L BUN/Creatinine Ratio (7 - 25 %) 22.0 Glucose (65 - 99 mg/dL) 154 H Calcium (8.4 - 10.2 mg/dL) 8.2 L Phosphorus (2.5 - 4.5 mg/dL) 3.3 Magnesium (1.6 - 2.3 mg/dL) 2.0 Total Bilirubin (0.2 - 1.3 mg/dL) 0.3 AST (17 - 59 U/L) 121 H ALT (21 - 72 U/L) 64 Albumin (3.5 - 5.0 g/dL) 2.1 L Amylase Cancelled Lipase Cancelled 05/05 05/05 05/04 0415 0000 2000 Chemistry Sodium (137 - 145 mmol/L) 120 L 119 *L 117 *L Potassium (3.5 - 5.1 mmol/L) 4.9 4.9 5.4 H Chloride (98 - 107 mmol/L) 96 L 94 L 92 L Carbon Dioxide (22 - 30 mmol/L) 20 L 18 L 21 L Anion Gap (5 - 16) 4 L 7 4 L BUN (9 - 20 mg/dL) 34 H 35 H 38 H Creatinine (0.7 - 1.2 mg/dL) 1.4 H 1.4 H 1.4 H Estimated GFR (>60 ml/min) 51 L 51 L 51 L BUN/Creatinine Ratio (7 - 25 %) 25.0 Glucose (65 - 99 mg/dL) 109 H 115 H Calcium (8.4 - 10.2 mg/dL) 8.2 L 8.0 L Phosphorus (2.5 - 4.5 mg/dL) 3.9 4.1 Magnesium (1.6 - 2.3 mg/dL) 2.1 2.2 Total Bilirubin (0.2 - 1.3 mg/dL) 0.5 0.4 AST (17 - 59 U/L) 110 H 103 H ALT (21 - 72 U/L) 66 60 Albumin (3.5 - 5.0 g/dL) 2.1 L 2.1 L Triglycerides (<150 mg/dL) 97 Cholesterol (< 200 MG/DL) 146 LDL Cholesterol, Calc (65 - 129 mg/dL) 76 HDL Cholesterol (40 - 60 mg/dL) 51 Cholesterol/HDL Ratio (0.00 - 4.88 %) 3 Amylase (30 - 110 U/L) 105 Lipase (23 - 300 U/L) 559 H Hematology CBC w Diff NO MAN DIFF REQ WBC (4.8 - 10.8 /CUMM) 9.8 RBC (4.70 - 6.10 /CUMM) 3.84 L Hgb (14.0 - 18.0 G/DL) 11.1 L Hct (42 - 52 %) 33.7 L MCV (80.0 - 94.0 FL) 87.8 MCH (27.0 - 31.0 PG) 29.0 RDW (11.5 - 14.5 %) 15.1 H Plt Count (130 - 400 /CUMM) 340 MPV (7.4 - 10.4 FL) 6.2 L Gran % (42.2 - 75.2 %) 83.1 H Lymphocytes % (20.5 - 51.1 %) 9.4 L Monocytes % (1.7 - 9.3 %) 6.4 Eosinophils % (0 - 5 %) 0.4 Basophils % (0.0 - 2.0 %) 0.7 Absolute Granulocytes (1.4 - 6.5 /CUMM) 8.2 H Absolute Lymphocytes (1.2 - 3.4 /CUMM) 0.9 L Absolute Monocytes (0.10 - 0.60 /CUMM) 0.6 Absolute Eosinophils (0.0 - 0.7 /CUMM) 0 Absolute Basophils (0.0 - 0.2 /CUMM) 0.1 PUBS MCHC (33.0 - 37.0 G/DL) 33.0 05/04 05/04 05/04 1625 1210 0815 Chemistry Sodium (137 - 145 mmol/L) 118 *L 119 *L 120 L Potassium (3.5 - 5.1 mmol/L) 5.1 5.5 H 5.4 H Chloride (98 - 107 mmol/L) 93 L 93 L 95 L Carbon Dioxide (22 - 30 mmol/L) 20 L 18 L 18 L Anion Gap (5 - 16) 5 8 7 BUN (9 - 20 mg/dL) 37 H 39 H 39 H Creatinine (0.7 - 1.2 mg/dL) 1.4 H 1.4 H 1.4 H Estimated GFR (>60 ml/min) 51 L 51 L 51 L Glucose (65 - 99 mg/dL) 114 H 94 91 Calcium (8.4 - 10.2 mg/dL) 8.0 L 8.3 L 8.2 L Phosphorus (2.5 - 4.5 mg/dL) 4.6 H 5.6 H 5.3 H Magnesium (1.6 - 2.3 mg/dL) 2.4 H 2.6 H 1.8 Total Bilirubin (0.2 - 1.3 mg/dL) 0.3 0.6 0.5 AST (17 - 59 U/L) 99 H 81 H 50 ALT (21 - 72 U/L) 65 59 54 Albumin (3.5 - 5.0 g/dL) 2.1 L 2.2 L 2.1 L Hematology CBC w Diff NO MAN DIFF REQ WBC (4.8 - 10.8 /CUMM) 11.4 H RBC (4.70 - 6.10 /CUMM) 4.11 L Hgb (14.0 - 18.0 G/DL) 11.9 L Hct (42 - 52 %) 35.4 L MCV (80.0 - 94.0 FL) 86.2 MCH (27.0 - 31.0 PG) 28.9 RDW (11.5 - 14.5 %) 15.2 H Plt Count (130 - 400 /CUMM) 321 MPV (7.4 - 10.4 FL) 6.4 L Gran % (42.2 - 75.2 %) 89.6 H Lymphocytes % (20.5 - 51.1 %) 5.2 L Monocytes % (1.7 - 9.3 %) 4.7 Eosinophils % (0 - 5 %) 0.1 Basophils % (0.0 - 2.0 %) 0.4 Absolute Granulocytes (1.4 - 6.5 /CUMM) 10.3 H Absolute Lymphocytes (1.2 - 3.4 /CUMM) 0.6 L Absolute Monocytes (0.10 - 0.60 /CUMM) 0.5 Absolute Eosinophils (0.0 - 0.7 /CUMM) 0 Absolute Basophils (0.0 - 0.2 /CUMM) 0.1 PUBS MCHC (33.0 - 37.0 G/DL) 33.5 05/04 05/04 05/04 0440 0440 0020 Chemistry Sodium (137 - 145 mmol/L) Cancelled 119 *L Potassium (3.5 - 5.1 mmol/L) Cancelled 5.2 H Chloride (98 - 107 mmol/L) Cancelled 95 L Carbon Dioxide (22 - 30 mmol/L) Cancelled 18 L Anion Gap (5 - 16) Cancelled 6 BUN (9 - 20 mg/dL) Cancelled 41 H Creatinine (0.7 - 1.2 mg/dL) Cancelled 1.4 H Estimated GFR (>60 ml/min) 51 L Glucose (65 - 99 mg/dL) Cancelled 87 Calcium (8.4 - 10.2 mg/dL) Cancelled 8.2 L Phosphorus (2.5 - 4.5 mg/dL) Cancelled 5.1 H Magnesium (1.6 - 2.3 mg/dL) Cancelled 1.8 1.8 Total Bilirubin (0.2 - 1.3 mg/dL) Cancelled 0.6 AST (17 - 59 U/L) Cancelled 52 ALT (21 - 72 U/L) Cancelled 59 Troponin I (<0.11 ng/ml) 0.04 0.04 Albumin (3.5 - 5.0 g/dL) Cancelled 2.1 L Hematology CBC w Diff NO MAN DIFF REQ WBC (4.8 - 10.8 /CUMM) 13.1 H RBC (4.70 - 6.10 /CUMM) 4.03 L Hgb (14.0 - 18.0 G/DL) 11.8 L Hct (42 - 52 %) 35.4 L MCV (80.0 - 94.0 FL) 87.8 MCH (27.0 - 31.0 PG) 29.3 RDW (11.5 - 14.5 %) 15.1 H Plt Count (130 - 400 /CUMM) 334 MPV (7.4 - 10.4 FL) 6.6 L Gran % (42.2 - 75.2 %) 95.5 H Lymphocytes % (20.5 - 51.1 %) 3.5 L Monocytes % (1.7 - 9.3 %) 0.9 L Eosinophils % (0 - 5 %) 0.1 Basophils % (0.0 - 2.0 %) 0 L Absolute Granulocytes (1.4 - 6.5 /CUMM) 12.5 H Absolute Lymphocytes (1.2 - 3.4 /CUMM) 0.5 L Absolute Monocytes (0.10 - 0.60 /CUMM) 0.1 L Absolute Eosinophils (0.0 - 0.7 /CUMM) 0 Absolute Basophils (0.0 - 0.2 /CUMM) 0 PUBS MCHC (33.0 - 37.0 G/DL) 33.4 Serology Hepatitis A IgM Ab (NONREACTIVE) NONREACTIVE Hep Bs Antigen (NONREACTIVE) NONREACTIVE Hep B Core IgM Ab Conf (NONREACTIVE) NONREACTIVE Hepatitis C Antibody (NONREACTIVE) NONREACTIVE HIV 1&2 Ab Western Blot (NONREACTIVE) NONREACTIVE 05/04 05/04 05/03 05/03 0020 0020 2143 8138 Blood Gas pH (7.35 - 7.45 PH) 7.38 pCO2 (35 - 45 TORR) 25 L pO2 (80 - 100 TORR) 129 H HCO3 (21 - 28 MEQ/L) 14 L ABG O2 Sat (Measured) (>96.0 %) 98.0 P-50 (Temp Corrected) YES Carboxyhemoglobin (1.5 - 5.0 %) 0.5 L O2 Concentration % 4L Temperature (97.0 - 100.0 FARH) 99.1 O2 Delivery Method NC Chemistry Sodium (137 - 145 mmol/L) 116 *L Potassium (3.5 - 5.1 mmol/L) 5.3 H Chloride (98 - 107 mmol/L) 92 L Carbon Dioxide (22 - 30 mmol/L) 16 L Anion Gap (5 - 16) 8 BUN (9 - 20 mg/dL) 45 H Creatinine (0.7 - 1.2 mg/dL) 1.4 H Estimated GFR (>60 ml/min) 51 L BUN/Creatinine Ratio (7 - 25 %) 32.1 H Lactic Acid (0.7 - 2.1 mmol/L) 1.0 Hematology CBC w Diff Cancelled WBC Cancelled RBC Cancelled Hgb Cancelled Hct Cancelled MCV Cancelled MCH Cancelled RDW Cancelled Plt Count Cancelled MPV Cancelled PUBS MCHC Cancelled Miscellaneous Phlebotomy Draw Site RIGHT RADIAL 05/03 05/03 1845 1848 Toxicology Urine Opiates Screen (>2000 NG/ML) < 100.00 Methadone Screen (>300 NG/ML) < 40 Barbiturate Screen (>200 NG/ML) < 60 Ur Phencyclidine Scrn (>25 NG/ML) < 6.00 Amphetamines Screen (>1000 NG/ML) < 100 U Benzodiazepines Scrn (>200 NG/ML) < 85 Urine Cocaine Screen (>300 NG/ML) < 50 Urine Cannabis Screen (>50 NG/ML) < 5.00 Urines Urine Color (YEL,AMB,STR) YEL Urine Clarity (CLEAR) CLEAR Urine pH (5.0 - 8.0) 6.0 Ur Specific [place] (1.001 - 1.035) >= 1.030 Urine Protein (NEG,<30 MG/DL) >=300 H Urine Ketones (NEG) NEG Urine Nitrite (NEG) NEG Urine Bilirubin (NEG) NEG Urine Urobilinogen (0.1 - 1.0 EU/dl) 0.2 Ur Leukocyte Esterase (NEG) NEG Ur Microscopic SEDIMENT EXAMINED Urine RBC (0 - 5 /HPF) FEW H Urine WBC (0 - 2 /HPF) RARE Ur Epithelial Cells (NONE,FEW) RARE Urine Hemoglobin (NEG) SMALL H Urine Osmolality (300 - 1000 MOSM/KG) 562 Ur Random Creatinine (mg/dL) 105.5 Ur Random Sodium (30 - 90 mmol/L) < 5 L Ur Random Potassium (mmol/L) 76.7 Fraction Sodium Excret (<1% %) ND Urine Glucose (N MG/DL) NEG 05/03 1830 Chemistry Sodium (137 - 145 mmol/L) 118 *L Potassium (3.5 - 5.1 mmol/L) 7.2 *H Chloride (98 - 107 mmol/L) 88 L Carbon Dioxide (22 - 30 mmol/L) 20 L Anion Gap (5 - 16) 10 BUN (9 - 20 mg/dL) 54 H Creatinine (0.7 - 1.2 mg/dL) 1.7 H Estimated GFR (>60 ml/min) 41 L BUN/Creatinine Ratio (7 - 25 %) 31.8 H Glucose (65 - 99 mg/dL) 85 Serum Osmolality (285 - 295 MOSM/KG) 281 L Lactic Acid (0.7 - 2.1 mmol/L) 1.2 Calcium (8.4 - 10.2 mg/dL) 9.0 Total Bilirubin (0.2 - 1.3 mg/dL) 0.8 AST (17 - 59 U/L) 66 H ALT (21 - 72 U/L) 76 H Alkaline Phosphatase (< 127 U/L) 220 H Ammonia (9 - 30 umol/L) < 9 L Troponin I (<0.11 ng/ml) 0.04 Total Protein (6.3 - 8.2 g/dL) 6.0 L Albumin (3.5 - 5.0 g/dL) 3.0 L Globulin (1.9 - 4.2 gm/dL) 3.0 Albumin/Globulin Ratio (1.1 - 2.2 %) 1.0 L Amylase (30 - 110 U/L) 158 H Lipase (23 - 300 U/L) 799 H TSH (0.270 - 4.200 uIU/mL) 1.850 Free T4 (0.78 - 2.44 ng/dL) 1.18 Total T3 (0.97 - 1.69 ng/mL) 0.67 L Coagulation PT (9.4 - 12.5 SEC) 10.9 INR (0.90 - 1.17) 1.04 APTT (25 - 37 SEC) 32 Hematology CBC w Diff MAN DIFF ORDERED WBC (4.8 - 10.8 /CUMM) 15.3 H RBC (4.70 - 6.10 /CUMM) 5.11 Hgb (14.0 - 18.0 G/DL) 14.8 Hct (42 - 52 %) 44.9 MCV (80.0 - 94.0 FL) 87.8 MCH (27.0 - 31.0 PG) 29.0 RDW (11.5 - 14.5 %) 15.1 H Plt Count (130 - 400 /CUMM) 402 H MPV (7.4 - 10.4 FL) 6.7 L Gran % (42.2 - 75.2 %) 91.3 H Lymphocytes % (20.5 - 51.1 %) 5.2 L Monocytes % (1.7 - 9.3 %) 2.9 Eosinophils % (0 - 5 %) 0.1 Basophils % (0.0 - 2.0 %) 0.5 Absolute Granulocytes (1.4 - 6.5 /CUMM) 14.0 H Segmented Neutrophils (42.2 - 75.2 %) 90 H Band Neutrophils (0.0 - 5.0 %) 3 Absolute Lymphocytes (1.2 - 3.4 /CUMM) 0.8 L Lymphocytes (20.5 - 51.1 %) 4 L Monocytes (1.7 - 9.3 %) 3 Absolute Monocytes (0.10 - 0.60 /CUMM) 0.4 Absolute Eosinophils (0.0 - 0.7 /CUMM) 0 Absolute Basophils (0.0 - 0.2 /CUMM) 0.1 Platelet Estimate (ADEQUATE) ADEQUATE PUBS MCHC (33.0 - 37.0 G/DL) 33.0 Toxicology Acetaminophen (10.0 - 30.0 ug/mL) < 10.0 L Serum Alcohol (<10 MG/DL) < 10.0
[2016-05-06 15:17] VITALS: BP 152/90
[2016-05-06 15:40] VITALS: BP 128/66
--- NOTE | 2016-05-06 16:01 | ECHOCARDIOGRAM REPORT ---
JOSUÉ NOYOLA Age: 66 : 1950 Gender: M Exam Date: 05/06/2016 08:21 Exam Location: [facility] Ht (in): 72 Wt (lb): 160 BSA: 1.92 BP: 140 / 80 Ordering Physician: LEOLA BRAND MD Referring Physician: LEOLA BRAND MD Technologist: Sia Hernandez RDCS Room Number: 104 Indications: SHORTNESS OF BREATH Rhythm: Sinus Technical Quality: fair FINDINGS Left Ventricle Normal left ventricular size with mild left ventricular hypertrophy. Moderately decreased systolic function with severe anterior, mid to distal anteroseptal and septal hypokinesis. Normal left ventricular diastolic filling pattern for age. The ejection fraction is visually estimated at 30%. Right Ventricle The right ventricle is mildly enlarged with normal function. Right Atrium The right atrium is normal in size. Left Atrium The left atrium is normal in size. The interatrial septum is intact. Mitral Valve The mitral valve is normal in structure and function. There is mild mitral regurgitation. Aortic Valve Moderately thickened and sclerotic aortic valve with moderate aortic stenosis. There is trace aortic regurgitation. Tricuspid Valve The tricuspid valve is normal in structure and function. There is mild tricuspid regurgitation. Pulmonary artery systolic pressure is moderately increased to 53mmHg. Pulmonic Valve Structurally normal pulmonic valve. There is trace pulmonic regurgitation. Pericardium Normal pericardium with trace effusion. No pleural effusion. Great Vessels Normal aortic root dimension. The aortic arch and great vessels are poorly seen. CONCLUSIONS 1. Moderately decrease EF of 30% with regional wall motion abnormalities as noted above. 2. Mild left ventricular hypertrophy. 3. Mild right ventricular enlargment. 4. Mild mitral regurgitation. 5. Mild tricuspid regurgitation. 6. Moderate aortic stenosis with mild aortic regurgitation. 7. Trace pulmonic regurgitation. 8. Moderate pulmonary hypertension. 9. Trace pericardial effusion. Rubén Laureano M.D. (Electronically Signed) Final Date: 06 May 2016 16:00 MEASUREMENTS (Male / Female) Normal Values 2D ECHO LV Diastolic Diameter PLAX 5.2 cm 4.2 - 5.9 / 3.9 - 5.3 cm LV Systolic Diameter PLAX 4.2 cm 2.1 - 4.0 cm LV Fractional Shortening PLAX 19.2 % 25 - 46 % LV Ejection Fraction 2D Teich 39.3 % IVS Diastolic Thickness 1.2 cm LVPW Diastolic Thickness 1.2 cm LV Relative Wall Thickness 0.5 RV Internal Dim ED PLAX 3.8 cm 1.9 - 3.8 cm LVOT Diameter 2.3 cm Aortic Root Diameter 3.2 cm LA Systolic Diameter LX 3.7 cm 3.0 - 4.0 / 2.7 - 3.8 cm LA Volume 40.0 cm 18 - 58 / 22 - 52 cm Ascending Aorta Diameter 2.8 cm DOPPLER AV Peak Velocity 324.0 cm/s AV Peak Gradient 42.0 mmHg AV Mean Velocity 226.0 cm/s AV Mean Gradient 24.0 mmHg AV Velocity Time Integral 54.9 cm LVOT Peak Velocity 129.0 cm/s LVOT Peak Gradient 6.7 mmHg LVOT Mean Velocity 83.1 cm/s LVOT Mean Gradient 3.0 mmHg LVOT Velocity Time Integral 22.4 cm LVOT Stroke Volume 93.1 cm AV Area Cont Eq vti 1.7 cm AV Area Cont Eq pk 1.7 cm MV Peak Velocity 136.0 cm/s MV Peak Gradient 7.4 mmHg MV Mean Velocity 75.0 cm/s MV Mean Gradient 3.0 mmHg Mitral E Point Velocity 84.4 cm/s Mitral A Point Velocity 72.1 cm/s Mitral E to A Ratio 1.2 MV PHT Velocity 140.0 cm/s MV Deceleration Dickinson 665.0 cm/s MV Pressure Half Time 63.2 ms MV Area PHT 3.5 cm MV Deceleration Time 185.0 ms TR Peak Velocity 330.0 cm/s TR Peak Gradient 43.6 mmHg Right Atrial Pressure 10.0 mmHg Pulmonary Artery Systolic Pressu 53.6 mmHg Right Ventricular Systolic Press 53.6 mmHg PV Peak Velocity 108.0 cm/s PV Peak Gradient 4.7 mmHg PV Mean Velocity 71.2 cm/s PV Mean Gradient 2.0 mmHg PV Velocity Time Integral 15.8 cm LV E' Lateral Velocity 15.7 cm/s Mitral E to LV E' Lateral Ratio 5.4 LV E' Septal Velocity 5.8 cm/s Mitral E to LV E' Septal Ratio 14.7
[2016-05-07 00:40] VITALS: BP 160/80
--- NOTE | 2016-05-07 07:27 | PN- Housestaff ---
SANJAY AYOUB,[facility] [place]16 0726: Subjective Follow-up For: Hyponatremia Possible upper GI bleed Subjective: No acute events overnight. Patient seen and examined this morning. He offers no complaints. Review of Systems Constitutional: Denies: chills, fever. Cardiovascular: Denies: chest pain. Respiratory: Denies: cough, short of breath. Gastrointestinal: Denies: abdominal pain, constipation, diarrhea, nausea, vomiting. Objective Last 24 Hrs of Vital Signs/I&O Vital Signs Date Time Temp Pulse Resp B/P Pulse O2 O2 Flow FiO2 Ox Delivery Rate 05/07 0908 94 Room Air 05/07 0803 98.0 115 20 160/86 93 Room Air 05/07 0800 93 Room Air Room Air 05/07 0040 96.9 112 20 160/80 94 Room Air 05/06 1929 95 Room Air Room Air 05/06 1600 93 Room Air 05/06 1540 98.4 105 20 128/66 94 Room Air 05/06 1517 98.9 100 20 152/90 93 Room Air Intake & Output 05/07 1600 05/07 0800 05/07 0000 Intake Total 0 400 Output Total 250 275 Balance -250 125 Intake, Oral 0 400 Output, Urine 250 275 Physical Exam General Appearance: Alert, Oriented X3, No Acute Distress HEENT: Mucous Membr. moist/pink Cardiovascular: Regular Rate, Normal S1, Normal S2 Lungs: Clear to Auscultation, Normal Air Movement Abdomen: Soft, No Tenderness, Positive Bowel Sounds Extremities: No Clubbing, No Cyanosis, BLE with Dressing In Place Current Medications: Current Medications Sig/Fidelina Start time Last Medication Dose Route Stop Time Status Admin Albuterol Sulfate 3 ML Q4P PRN 05/06 1315 AC 05/07 INH 0905 Albuterol Sulfate 3 ML TID 05/04 1600 DC 05/06 INH 0814 Atorvastatin Calcium 80 MG 1700 05/04 1700 AC 05/06 PO 1646 Heparin Sodium 5,000 UNIT Q8 05/03 2200 AC 05/07 (Porcine) SC 0511 Ipratropium [place] 2.5 ML Q4P PRN 05/06 1315 AC 05/07 INH 0905 Ipratropium [place] 2.5 ML TID 05/04 1600 DC 05/06 INH 0814 Omeprazole 40 MG BID 05/07 1142 UNVr PO Pantoprazole Sodium 40 MG DAILY 05/03 2245 DC 05/07 IV 0836 Sodium Chloride 3,000 MG TID 05/04 2200 AC 05/07 PO 0836 Last 24 Hrs of Lab/Abhay Results Last 24 Hrs of Labs/Mics: Laboratory Tests 05/07/16 1115: Sodium Pending, Potassium Pending, Chloride Pending, Carbon Dioxide Pending, Anion Gap Pending, BUN Pending, Creatinine Pending, BUN/Creatinine Ratio Pending , Magnesium Pending, CBC w Diff Pending, WBC Pending, RBC Pending, Hgb Pending, Hct Pending, MCV Pending, MCH Pending, RDW Pending, Plt Count Pending, MPV Pending, PUBS MCHC Pending 05/06/16 2055: Anion Gap 6, Estimated GFR > 60, BUN/Creatinine Ratio 21.7, Magnesium 1.8 05/06/16 1200: Anion Gap 6, Estimated GFR 56 L, BUN/Creatinine Ratio 21.5 Orders ECHO Findings: (05/06): 1. Moderately decrease EF of 30% with regional wall motion abnormalities as noted above. 2. Mild left ventricular hypertrophy. 3. Mild right ventricular enlargment. 4. Mild mitral regurgitation. 5. Mild tricuspid regurgitation. 6. Moderate aortic stenosis with mild aortic regurgitation. 7. Trace pulmonic regurgitation. 8. Moderate pulmonary hypertension. 9. Trace pericardial effusion. Assessment/Plan Assessment: 66 y/o M with PMHx of HTN, COPD and CKD who presented with AMS and black tarry stools. Discharge to [facility] tomorrow. #Melena: S/p EGD significant for norerosive esophagitis, gastritis and duodenitis, 1 cm antral ulcer and atropic small bowel folds, s/p biopsies. H&H stable. * Switched to omeprazole today. Will take 40 mg PO BID x 2 weeks followed by daily dosing. * Will follow up with GI as outpatient for biopsy results. * Notify GI if there are any signs of overt GI bleeding. * Avoid NSAIDs. * Per GI, if biopsies of the ulcer are benign, patient should have repeat EGD in 2 months to confirm healing and rule out underlying malignancy. * Continue to monitor H/H daily. #HFrEF: ECHO with LVEF of 30%, moderate aortic stenosis and moderate pulmonary HTN. No prior diagnosis of CHF. * Will give outpatient referral for Cardiology on discharge. #Hyponatremia: Na 118 on initial presentation. Most likely secondary to thiazide use although SIADH cannot be ruled out. Na improved to 129 today. * Continue 1 L fluid restriction. * Continue NaCl 1 g PO TID. * Espinoza removed. #Necrotic BLE ulcers: * Vascular Surgery and ID following. Appreciate their recs. * Continue to monitor off abx. #DELORIS on CKD stage III: Likely pre-renal Cr improved to baseline, 1.3 today. * Will give outpatient referral to Nephrology on discharge. * Continue to hold diuretics. #Mediastinal lymphadenopathy: Chest CT with pathologically enlarged mediastinal lymph nodes. Differential includes lymphoma, metastases or granulmatous disease. * Will give outpatient referral for Pulmonology for further work-up incluidng repeat CT and PET scan. Diet: Heart Healthy DVT PPx: HSQ CODE: DNR/DNI Problem List: 1. Gastric ulcer 2. Acute renal failure superimposed on stage 3 chronic kidney disease 3. Hyponatremia 4. Chronic ulcer of leg 5. HFrEF (heart failure with reduced ejection fraction) 6. Peripheral vascular disease Pain Ratin Pain Location: N/A Pain Goal: Remain pain free Pain Plan: None Tomorrow's Labs & Rationales: BMP to monitor lytes and kidney function in the setting of CKD and hyponatremia Discharge Plan Discharge Disposition: STR/NH Anticipated Discharge (Day): tomorrow SONIA LUGO MD 05/07/16 1458: Attending MD Review Statement Attending Statement Attending MD Statement: examined this patient, discuss w/resident/PA/[employer]ALES SENIOR SPECIALIST, agreed w/resident/PA/PRESALES SENIOR SPECIALIST, reviewed EMR data (avail) Attending Assessment/Plan: 66M PMH HTN, severe COPD, history of ruptured AAA s/p stent, PVD with bilateral chronic ulcers, CKD stage 4, admitted with melena, pallor, confusion. Found to have hyponatremia at 118, hyperkalemia and acute on chronic kidney injury due to diuretic and ACEi. Underwent endoscopy today which found clean base gastric antrum ulcer. Patient is confused post-procedure and does not wish to answer questions. Stable vitals, unremarkable labs. 1. Gastric ulcer on EGD 2. Acute on chronic kidney injury stage 4 3. Hyponatremia 4. Hyperkalemia (resolved) 5. Bilateral chronic LE ulcers 6. PVD Plan - Discontinue telemetry - Follow nephrology recommendations - Continue fluid restriction - Avoid diuretics - PPI BID - Continue home medications - Continue to work with PT - Anticipated discharge to STR tomorrow. Please send CMR for review - Outpatient nephrology, GI, pulmonary follow up
[2016-05-07 08:03] VITALS: BP 160/86
--- NOTE | 2016-05-07 09:23 | PN- Pulmonary ---
Subjective HPI/Critical Care Issues: Doing better today On room air No other complaints Patient is slightly hypertensive Vital signs reviewed Review of symptoms otherwise unremarkable Sodium up to 128 which is stable Lipase was 519 which is improved since admission White count 9.2 hemoglobin and hematocrit has been stable so far all his cultures are negative Objective Current Medications: Current Medications Sig/Fidelina Start time Last Medication Dose Route Stop Time Status Admin Albuterol Sulfate 3 ML Q4P PRN 05/06 1315 AC 05/07 INH 0905 Albuterol Sulfate 3 ML TID 05/04 1600 DC 05/06 INH 0814 Atorvastatin Calcium 80 MG 1700 05/04 1700 AC 05/06 PO 1646 Heparin Sodium 5,000 UNIT Q8 05/03 2200 AC 05/07 (Porcine) SC 0511 Ipratropium [place] 2.5 ML Q4P PRN 05/06 1315 AC 05/07 INH 0905 Ipratropium [place] 2.5 ML TID 05/04 1600 DC 05/06 INH 0814 Pantoprazole Sodium 40 MG DAILY 05/03 2245 AC 05/07 IV 0836 Sodium Chloride 3,000 MG TID 05/04 2200 AC 05/07 PO 0836 Vital Signs & I&O Last 24 Hrs of Vitals and I&O: Vital Signs Date Time Temp Pulse Resp B/P Pulse O2 O2 Flow FiO2 Ox Delivery Rate 05/07 0908 94 Room Air 05/07 0803 98.0 115 20 160/86 93 Room Air 05/07 0040 96.9 112 20 160/80 94 Room Air 05/06 1929 95 Room Air Room Air 05/06 1600 93 Room Air 05/06 1540 98.4 105 20 128/66 94 Room Air 05/06 1517 98.9 100 20 152/90 93 Room Air Intake & Output 05/07 1600 05/07 0800 05/07 0000 Intake Total 0 400 Output Total 250 275 Balance -250 125 Intake, Oral 0 400 Output, Urine 250 275 Impression/Plan Impression/Plan Impression/Plan: General Appearance Alert, Oriented X3, Cooperative, No Acute Distress HEENT dry mucous membranes Neck No JVD Cardiovascular Regular Rate, grade 1 systolic murmur Lungs decreased air entry Abdomen Normal Bowel Sounds, Soft, No Tenderness Neurological Normal Speech, Strength at 5/5 X4 Ext Extremities B/L LE swelling with redness, oozing necrotic wounds, non tender, pulses implapable IMPRESSION This is an unfortunate 66-year-old gentleman with history of hypertension, severe COPD with emphysema, previous ruptured aortic aneurysm status post stent placement, poor performance status, severe peripheral vascular disease with bilateral lower extremity necrotic ulcers on both sides related to severe peripheral vascular disease, chronic kidney disease with probable proteinuria, severe hyponatremia, electrolyte imbalance, black tarry stools by history with stable H&H initially with no active evidence of GI bleed, mediastinal lymphadenopathy, pulmonary fibrosis, mediastinal lymphadenopathy which needs to be investigated in the future now has the following issues * Improved altered mental status which is slowly improving most likely related to severe hyponatremia which appears to be syndrome of inappropriate ADH secretion * Bilateral lower extremity necrotic ulcers, infectious disease and vascular following patient has both venous and arterial ulcer * Resolved Hyperkalemia * Previous ruptured aneurysm which appears to be stable * History suggestive of GI bleed with black tarry stool with slightly reduced hemoglobin and hematocrit since admission GI on board * Esophageal lesion seen in the CT scan probably consistent with Guzmán's esophagus versus GERD versus malignancy hence he would need an upper endoscopy * Severe emphysema * Mild pulmonary fibrosis * Mediastinal lymphadenopathy which needs follow-up CT on a PET scan when stable * Severe peripheral vascular disease with lower extremity both arterial and venous insufficiency with probable cellulitis which may need to be debrided * Acute on chronic kidney disease * Chronic lower extremity edema which needs to be followed * Altered LFTs RECOMMENDATION * Can go to the hospitalist service * Does not need telemetry * Continue monitoring sodium and renal is following plan for them. Patient would require fluid restriction * Watch his hemoglobin and hematocrit daily * EGD soon * Continue proton pump inhibitor * As needed nebulizer treatment not atc * Sodium mgt upto renal * Cont wound care and abx or no abx per ID * Patient does have COPD, mediastinal lymphadenopathy and other CT findings as noted above. I did discuss with him about his overall plan for the future is not too keen on any invasive workup he would require follow-up as an outpatient and upon discharge she should follow up with me
--- NOTE | 2016-05-07 09:38 | Proc Note Endoscopy ---
Endoscopy Procedure Medical History: unchanged (see meditech consult) Mental Status: alert/oriented Heart/Lung Eval Prior to Sedation: within normal limits Candidate for Sedation? Yes Procedure Date: 05/07/16 Procedure Type: EGD w/biopsy Switchboard Operator Assistant: Real Valles MD ASA Classification: III Indications: Abnormal ct scan showing esophageal thickening and lymphadenopathy. Reports of melena. Instrument: diagnostic gastroscope Meds Received: MAC Patient's Tolerance: good Complications: none Extent Reached: second part of duodenum Procedure: After getting written informed consent the patient was placed in the left lateral decubitus position with pulse oximetry, cardiac monitoring, and supplemental oxygen given. A bite block was inserted and IV sedation was given until the desired effect was achieved. A high definition upper Olympus endoscope was then inserted into the mouth and advanced to the second portion of the duodenum with little difficulty. Retroflexed views and photodocumentation was obtained. Findings: Esophagus: The esophageal mucosa was grossly normal in appearance. The Z line was located at 44 cm from the incisors and was moderately erythematous with a few short erosions, but there were no strictures, ulcers, or masses appreciated. Biopsies were obtained from the Z line with cold biopsy forceps and were sent to pathology for further evaluation. Stomach: Within the antrum was a 1 cm cratered, but benign-appearing clean-based ulcer with raised edges. Biopsies were obtained from around the edges of the ulcer with cold biopsy forceps and were sent to pathology for further evaluation. There were also diffuse erythematous changes appreciated throughout the stomach. There were no gastric masses appreciated. Distention and peristalsis of the stomach appeared normal. Retroflexed views were normal and did not reveal a significant hiatal hernia. Random biopsies were obtained from the antrum and body of the stomach with cold biopsy forceps and were sent to pathology for further evaluation. Duodenum: The duodenal bulb was moderately erythematous, but there were no ulcers or erosions appreciated. The duodenal sweep was normal in appearance, but the folds appeared atrophic and biopsies were obtained from second portion of the duodenum and were sent to pathology for further evaluation. Impression: 1. 1 cm clean-based cratered antral ulcer status post biopsies. 2. Moderate nonerosive gastritis status post biopsies. 3. Nonerosive duodenitis. 4. LA grade A reflux esophagitis status post biopsies. 5. Atrophic-appearing small bowel folds status post random biopsies. Recommendations: 1. Change to an oral PPI twice a day for the next 2 weeks and then daily dosing. 2. He should follow up the pathology results with me as an outpatient. 3. GI should be notified for any signs of overt GI bleeding. 4. He should avoid NSAIDs. 5. If the biopsies of the ulcer are benign he should have a repeat upper endoscopy in 2 months to confirm healing and rule out an underlying malignancy. CC: CRYSTAL AYOUB,JARAD Morales
--- NOTE | 2016-05-07 10:19 | PN- Infect Dx ---
Subjective Subjective: Afebrile without complaints Objective Last 24 Hrs of Vital Signs/I&O Vital Signs Date Time Temp Pulse Resp B/P Pulse O2 O2 Flow FiO2 Ox Delivery Rate 05/07 0908 94 Room Air 05/07 0803 98.0 115 20 160/86 93 Room Air 05/07 0040 96.9 112 20 160/80 94 Room Air 05/06 1929 95 Room Air Room Air 05/06 1600 93 Room Air 05/06 1540 98.4 105 20 128/66 94 Room Air 05/06 1517 98.9 100 20 152/90 93 Room Air Intake & Output 05/07 1600 05/07 0800 05/07 0000 Intake Total 0 400 Output Total 250 275 Balance -250 125 Intake, Oral 0 400 Output, Urine 250 275 Physical Exam Other Physical Findings: He is awake and alert in no acute distress Lungs are clear Heart regular rhythm with a 1/6 systolic ejection murmur Extremities necrotic ulcerations unchanged, with no surrounding erythema Espinoza catheter remains in place Results Last 24 Hours of Lab Results: Laboratory Tests 05/06 1200 Chemistry Sodium (137 - 145 mmol/L) 128 L 129 L Potassium (3.5 - 5.1 mmol/L) 4.3 3.9 Chloride (98 - 107 mmol/L) 99 99 Carbon Dioxide (22 - 30 mmol/L) 23 24 Anion Gap (5 - 16) 6 6 BUN (9 - 20 mg/dL) 26 H 28 H Creatinine (0.7 - 1.2 mg/dL) 1.2 1.3 H Estimated GFR (>60 ml/min) > 60 56 L BUN/Creatinine Ratio (7 - 25 %) 21.7 21.5 Magnesium (1.6 - 2.3 mg/dL) 1.8 Last 24 Hours of Abhay Results: Blood cultures May 03 negative Assessment/Plan Impression: Stable off antibiotics with temperatures and white blood cell count remaining normal. His lower extremity ulcerations are necrotic and may warrant debridement, but he has no evidence of cellulitis and, with temperatures and white blood cell count normal, he can continue to be followed off antibiotics. He is scheduled for an upper endoscopy later today for evaluation of his guaiac positive stools, with his H&H stable. Suggestion: 1. Await upper endoscopy later today 2. Further evaluation and management of his lower extremity ulcers, with possible debridement, per Vascular surgery 3. Further management of his hyponatremia per Renal 4. Remove Espinoza catheter if okay with Renal 5. Continue to follow off antibiotics
[2016-05-07 11:47] LABS: ABSOLUTE BASOPHIL COUNT 0.1 /CUMM (0.0-0.2); ABSOLUTE EOSINOPHIL COUNT 0 /CUMM (0.0-0.7); ABSOLUTE MONOCYTE COUNT 0.4 /CUMM (0.10-0.60); BASOPHIL % 0.6 % (0.0-2.0); EOSINOPHIL % 0.2 % (0-5); GRANULOCYTE % 81.8 % (42.2-75.2); HEMATOCRIT 34.5 % (42-52); MEAN CORPUSCULAR HGB CONC 33.6 G/DL (33.0-37.0); MEAN CORPUSCULAR VOLUME 86.3 FL (80.0-94.0); MEAN PLATELET VOLUME 6.3 FL (7.4-10.4); PLATELET COUNT 320 /CUMM (130-400); RBC DISTRIBUTION WIDTH 14.8 % (11.5-14.5); WHITE BLOOD CELL COUNT 8.5 /CUMM (4.8-10.8)
[2016-05-07 11:51] VITALS: BP 148/88
[2016-05-07 16:05] VITALS: BP 152/80
[2016-05-08 00:01] VITALS: BP 144/74
--- NOTE | 2016-05-08 07:40 | PN- Housestaff ---
SANJAY AYOUB,[facility] [place] 05/08/16 0740: Subjective Follow-up For: HFrEF Chronic BLE ulcers Hyponatremia DELORIS on CKD Suspected upper GI bleed Subjective: No acute events overnight. Patient seen and examined this morning. He offers no complaints. Review of Systems Constitutional: Denies: chills, fever. Cardiovascular: Denies: chest pain. Respiratory: Denies: cough, short of breath. Gastrointestinal: Denies: abdominal pain, constipation, diarrhea, nausea, vomiting. Objective Last 24 Hrs of Vital Signs/I&O Vital Signs Date Time Temp Pulse Resp B/P Pulse O2 O2 Flow FiO2 Ox Delivery Rate 05/08 1023 120 144/92 05/08 0922 97 Room Air 05/08 0801 97.8 118 20 164/110 94 Room Air 05/08 0001 98.8 112 20 144/74 94 Room Air 05/08 0000 95 Room Air 05/07 2300 95 Room Air Room Air 05/07 1605 98.1 122 20 152/80 96 Room Air 05/07 1151 82 148/88 Intake & Output 05/08 1600 05/08 0800 05/08 0000 Intake Total 50 120 Output Total Balance 50 120 Intake, Oral 50 120 Physical Exam General Appearance: Alert, Oriented X3, No Acute Distress HEENT: Mucous Membr. moist/pink Cardiovascular: Regular Rate, Normal S1, Normal S2 Lungs: Clear to Auscultation Abdomen: Soft, No Tenderness, Positive Bowel Sounds Extremities: No Clubbing, No Cyanosis, BLE with Dressing In Place Current Medications: Current Medications Sig/Fidelina Start time Last Medication Dose Route Stop Time Status Admin Albuterol Sulfate 3 ML Q4P PRN 05/06 1315 AC 05/07 INH 0905 Atorvastatin Calcium 80 MG 1700 05/04 1700 AC 05/07 PO 1624 Heparin Sodium 5,000 UNIT Q8 05/03 2200 AC 05/08 (Porcine) SC 0539 Ipratropium [place] 2.5 ML Q4P PRN 05/06 1315 AC 05/07 INH 0905 Magnesium Oxide 400 MG ONE ONE 05/08 0800 DC 05/08 PO 05/08 0801 1023 Metoprolol Tartrate 12.5 MG BID 05/08 1000 AC 05/08 PO 1023 Omeprazole 40 MG BID 05/07 1142 AC 05/08 PO 1023 Pantoprazole Sodium 40 MG DAILY 05/03 2245 DC 05/07 IV 0836 Patient Medication 1 ED .[facility] 05/07 1401 DC Teaching ED 05/07 1402 Sodium Chloride 3,000 MG TID 05/04 2200 AC 05/08 PO 1023 Last 24 Hrs of Lab/Abhay Results Last 24 Hrs of Labs/Mics: Laboratory Tests 05/08/16 0910: CBC w Diff Pending, WBC Pending, RBC Pending, Hgb Pending, Hct Pending, MCV Pending, MCH Pending, RDW Pending, Plt Count Pending, MPV Pending, PUBS MCHC Pending 05/08/16 0545: Anion Gap 8, Estimated GFR 51 L, BUN/Creatinine Ratio 19.3 05/07/16 1115: Anion Gap 9, Estimated GFR 56 L, BUN/Creatinine Ratio 17.7, Magnesium 1.8, CBC w Diff NO MAN DIFF REQ, RBC 4.00 L, MCV 86.3, MCH 29.0, RDW 14.8 H, MPV 6.3 L , Gran % 81.8 H, Lymphocytes % 12.2 L, Monocytes % 5.2, Eosinophils % 0.2, Basophils % 0.6, Absolute Granulocytes 7.0 H, Absolute Lymphocytes 1.0 L, Absolute Monocytes 0.4, Absolute Eosinophils 0, Absolute Basophils 0.1, PUBS MCHC 33.6 Assessment/Plan Assessment: 66 y/o M with PMHx of HTN, COPD and CKD who presented with AMS and melena, found to have hyperkalemia (now resolved) and hyponatremia, DELORIS on CKD and necrotic ulcers on BLE, s/p EGD with gastric ulcer s/p biopsies, with ECHO showing LVEF of 30%. #HFrEF: ECHO with LVEF of 30%, moderate aortic stenosis and moderate pulmonary HTN. No prior diagnosis of CHF. Patient is tachycardic to 120s and with elevated BPs. * Cardiology consulted. Appreciate their recs. * Metoprolol 12.5 mg PO BID started. #Necrotic BLE ulcers: Suspect significant PAD. * Vascular surgery following. Appreciate their recs. * Continue local wound care and leg elevation. * Will give instructions to follow up with Wound Care Clinic on discharge. * Continue to monitor off abx per ID. * Await lower extremity arterial testing. Vascular to decide if revascularization is required based on results. #Suspected upper GI bleed: S/p EGD significant for norerosive esophagitis, gastritis and duodenitis, 1 cm antral ulcer and atropic small bowel folds, s/p biopsies. H&H stable. * Continue omeprazole 40 mg PO BID x 2 weeks followed by daily dosing. * Will follow up with GI as outpatient for biopsy results. * Notify GI if there are any signs of overt GI bleeding. * Avoid NSAIDs. * Per GI, if biopsies of the ulcer are benign, patient should have repeat EGD in 2 months to confirm healing and rule out underlying malignancy. * Continue to monitor H/H daily. #Hyponatremia: Na 118 on initial presentation. Most likely secondary to thiazide use although cannot rule out SIADH. Na improved and stable at 129 today. * Continue 1 L fluid restriction. * Continue NaCl 1 g PO TID. * HCTZ discontinued. #DELORIS on CKD stage III: Likely pre-renal. Cr improved to baseline. 1.4 today. * Will give outpatient referral to Nephrology on discharge. * Continue to hold diuretics. Diet: Heart Healthy DVT PPx: HSQ CODE: DNR/DNI Problem List: 1. HFrEF (heart failure with reduced ejection fraction) 2. Acute renal failure superimposed on stage 3 chronic kidney disease 3. Chronic ulcer of leg 4. Hyponatremia 5. Peripheral vascular disease 6. Gastric ulcer 7. Gastritis and duodenitis 8. Gastritis determined by endoscopy Pain Ratin Pain Location: N/A Pain Goal: Remain pain free Pain Plan: None Tomorrow's Labs & Rationales: CBC to monitor H/H in the setting of suspected upper GI bleed BMP to monitor lytes and kidney function in the setting of DELORIS and CKD SONIA LUGO MD 05/08/16 1245: Attending MD Review Statement Attending Statement Attending MD Statement: examined this patient, discuss w/resident/PA/WIRE BENDER HAND, agreed w/resident/PA/WIRE BENDER HAND, reviewed EMR data (avail) Attending Assessment/Plan: 66M PMH HTN, severe COPD, history of ruptured AAA s/p stent, PVD with bilateral chronic ulcers, CKD stage 4, admitted with melena, pallor, confusion. Found to have hyponatremia at 118, hyperkalemia and acute on chronic kidney injury due to diuretic and ACEi. Underwent endoscopy which found clean base gastric antrum ulcer. Mental status improved today, patient is cooperative and calm with no complaints. 1. Gastric ulcer on EGD 2. Acute on chronic kidney injury stage 4 3. Hyponatremia 4. Hyperkalemia (resolved) 5. Bilateral chronic LE ulcers 6. PVD Plan - Discontinue telemetry - Follow nephrology recommendations - Continue fluid restriction - Avoid diuretics - PPI BID - Continue home medications - Continue to work with PT - Patient requires assistance with ambulation and would benefit from STR. Given insurance status placement may be a problem. Patient will remain inpatient until then. Can downgrade to general medicine floor. - Will obtain PVR per vascular surgery while inpatient to assess lower extremity vascular status
[2016-05-08 08:01] VITALS: BP 164/110
[2016-05-08 10:50] LABS: ABSOLUTE BASOPHIL COUNT 0.1 /CUMM (0.0-0.2); ABSOLUTE EOSINOPHIL COUNT 0.1 /CUMM (0.0-0.7); ABSOLUTE GRANULOCYTE CT 7.8 /CUMM (1.4-6.5); ABSOLUTE LYMPH COUNT 1.2 /CUMM (1.2-3.4); ABSOLUTE MONOCYTE COUNT 0.3 /CUMM (0.10-0.60); BASOPHIL % 1.2 % (0.0-2.0); EOSINOPHIL % 0.6 % (0-5); GRANULOCYTE % 82.8 % (42.2-75.2); HEMATOCRIT 32.9 % (42-52); MEAN CORPUSCULAR HGB 28.8 PG (27.0-31.0); MEAN CORPUSCULAR HGB CONC 33.2 G/DL (33.0-37.0); MEAN CORPUSCULAR VOLUME 86.8 FL (80.0-94.0); MEAN PLATELET VOLUME 6.9 FL (7.4-10.4); PLATELET COUNT 302 /CUMM (130-400); RBC DISTRIBUTION WIDTH 15.4 % (11.5-14.5); RED BLOOD CELL CT 3.79 /CUMM (4.70-6.10); WHITE BLOOD CELL COUNT 9.5 /CUMM (4.8-10.8)
--- NOTE | 2016-05-08 10:50 | Discharge Summary ---
See Addendum Visit Information Visit Dates Admission Date: 05/03/16 Discharge Date: 05/15/15 Hospital Course Course Attending Physician: SONIA LUGO MD Primary Care Physician: CRYSTAL AYOUB,JARAD Morales Hospital Course: Akash is a 66-year-old gentleman with a medical history of hypertension COPD and chronic kidney disease who presented to the emergency room with altered mental status and a upper GI bleed. He was treated with proton pump inhibitors, underwent and EGD which was notable for nonerosive esophagitis gastritis and duodenitis, a 1 cm antral ulcer and atrophic small bowel folds were noted. Biopsies were obtained. His hemoglobin room in stable. Patient is to avoid NSAIDs. Additionally an echocardiogram was performed and revealed a left ventricular ejection fraction of approximately 30% moderate aortic stenosis and moderate pulmonary hypertension and wall motion abnormalities.. He has no previous history of CHF. In the setting of hyponatremia. Nephrology consultation was obtained and it was determined that this hyponatremia is most likely secondary to thiazide diuretic usage. He was placed on 1 L fluid restriction and sodium chloride tablet. Diuretics were held. Creatinine improved to baseline of approximately 1.3. Additionally chest CT noted enlarged mediastinal lymph nodes which are concerning for possible lymphoma metastases or granulomatous process. Further referrals for outpatient workup has been provided. Patient should see pulmonology for further workup including repeat CAT scan and/or PET scan. Vascular surgery and infectious disease has evaluated bilateral lower extremity ulcerations. No interventions at this time, and he was follow off antibiotics. Patient was recommended to go to STR physiotherapy documented that he had difficulty weight bearing due to pain and he was a max assist from chair to bed and was performing well below baseline. Multiple attempts made to explain that he would benefit from STR however patient refused and left AMA. He was given the required referrals and instructed to follow up and home PT was also arranged. - Problems - Upper gastrointestinal bleed Nonerosive esophagitis Gastritis and duodenitis Antral gastric ulceration Diuretic-induced hyponatremia Altered mental status Heart failure with reduced ejection fraction Moderate aortic stenosis Moderate pulmonary hypertension Necrotic bilateral lower extremity ulcers Acute on chronic kidney injury Stage III CK-MB Mediastinal lymphadenopathy Allergies: Coded Allergies: NO KNOWN ALLERGIES (06/07/13) Disposition Summary Disposition Principal Diagnosis: Upper gastrointestinal bleed Additional Diagnosis: Nonerosive esophagitis Gastritis and duodenitis Antral gastric ulceration Diuretic-induced hyponatremia Altered mental status Heart failure with reduced ejection fraction Moderate aortic stenosis Moderate pulmonary hypertension Necrotic bilateral lower extremity ulcers Acute on chronic kidney injury Stage III CK-MB Mediastinal lymphadenopathy Discharge Disposition: SHORT-TERM REHABILITATION Discharge Instructions General Discharge Information Code Status: Do Not Resucitate/Intubat Patient's Diet: Heart healthy Patient's Activity: Self-limited Follow-Up Instructions/Appts: follow up with primary care physician within one week of discharge follow up with wound care clinic upon discharge follow up with GI specialist for repeat EGD in 2 months follow up with emergency vehicle operator within two weeks of discharge follow up with anthropologist within two weeks of discharge follow up with foundry technician within two weeks of discharge ollow up with vascular surgeon within two weeks of discharge Medications at Discharge Discharge Medications: Stop taking the following medications: Lisinopril/Hydrochlorothiazide (Lisinopril-Hctz 20-25 MG Tab) 20 MG-25 MG TABLET ORAL DAILY Continue taking these medications: Aspirin (Aspirin*) 325 MG TABLET 1 Tablet ORAL DAILY Comments: DID NOT RECEIVE IN HOSPITAL Start taking the following new medications: Atorvastatin Calcium (Atorvastatin Calcium) 80 MG TABLET 1 Tablet ORAL 5 PM Days = 30 No Refills Comments: Last Taken: 05/14/16 Time: 1615 Metoprolol Tartrate (Metoprolol Tartrate) 25 MG TABLET 0.5 Tablet ORAL TWICE DAILY Days = 30 No Refills Comments: Last Taken: 05/15/16 Time: 0915 Copies To: CRYSTAL AYOUB,JARAD Morales; SHERRILL AYOUB,MELISSA Membreno; MARCELINO AYOUB,PATRICK Lei; AUDREY AYOUB,CARRIE WILLIAMSON MD PhD,WOODY Lei Attending MD Review Statement Documenting Attending: SONIA LUGO MD
--- NOTE | 2016-05-08 11:50 | PN- Vascular Surgery ---
Subjective Subjective: Patient seen. no complaints. getting wound care. serum sodium improving. Review of Systems Constitutional: Denies: no symptoms. Cardiovascular: Denies: chest pain, edema. Respiratory: Denies: short of breath. Gastrointestinal: Denies: abdominal pain. Objective Vital Signs and I&Os Vital Signs Date Time Temp Pulse Resp B/P Pulse O2 O2 Flow FiO2 Ox Delivery Rate 05/08 1023 120 144/92 05/08 0922 97 Room Air 05/08 0801 97.8 118 20 164/110 94 Room Air 05/08 0001 98.8 112 20 144/74 94 Room Air 05/08 0000 95 Room Air 05/07 2300 95 Room Air Room Air 05/07 1605 98.1 122 20 152/80 96 Room Air 05/07 1151 82 148/88 Intake & Output 05/08 1600 05/08 0800 05/08 0000 05/07 1600 05/07 0800 05/07 0000 Intake Total 50 120 240 0 400 Output Total 250 250 275 Balance 50 120 -10 -250 125 Intake, Oral 50 120 240 0 400 Output, Urine 250 250 275 Physical Exam General Appearance: well developed/nourished, no apparent distress, alert, awake Head: atraumatic Respiratory: normal breath sounds Cardiovascular: regular rate/rhythm Peripheral Pulses: 0 femoral (R), 0 femoral (L) Abdomen: soft Extremities: bilatera foot wounds, shins with dressing Neurologic/Psychiatric: no motor/sensory deficits, awake, alert, oriented x 3 Assessment/Plan Assessment/Plan 1. Bilateral leg wounds. Etiology wounds unclear. Continue local wound care. Leg elevation. Would likely benefit from wound clinic evaluation upon discharge. 2. Suspect arterial disease bilateral lower extremities. Impaired lower extremity arterial perfusion may impede healing. Awaiting objective lower extremity arterial testing. Pending studies, we'll decide if revascularization is required. Problem List: 1. Chronic ulcer of leg 2. Peripheral vascular disease Core Measures/Miscellaneous Venous Thromboembolism VTE Risk Factors: Immobility, paresis VTE Contraindications: No Contraindications VTE Prophylaxis Ordered Inpt: Pharm- Heparin VTE Diagnosis: No VTE Type: NONE VTE Confirmed by (Test): NONE Beta Malvin Is Beta Malvin a Home Med? Yes Antibiotics Is Patient on Antibiotics? Yes
[2016-05-08 15:25] VITALS: BP 138/92
--- NOTE | 2016-05-08 20:03 | Cons- Cardiology ---
General Information and HPI Consulting Request Date of Consult: 05/08/16 Requested By: MISA AYOUB,BETTYE Reason for Consult: At risk status for coronary artery disease, cardiac conduction disease, and valvular heart disease. Source of Information: patient, old records Exam Limitations: poor historian History of Present Illness: Mr. Akash Mercado is a 66-year-old male with a history of long- standing tobacco use, COPD, hypertension, cardiac conduction disease (LAFB, RBBB ), strong family history for coronary artery disease (father's first WA in his 50s, brother succumbed to an WA at 45 years) vascular disease (s/p AAA repair) and CKD who was admitted on 05/03/2016 with altered mental status, necrotic bilateral lower extremity skin ulcerations, and melena with evidence of DELORIS with hyperkalemia and hyponatremia without any associated history of NSAID use, recent IV contrast, etc., Who had been on outpatient antiplatelet, URSULA inhibitor, and thiazide diuretic therapy. His hyperkalemia and hyponatremia were appropriately treated and he was seen in consultation by ID, vascular surgery, nephrology, and GI (Real Valles M.D.) and underwent EGD on 05/07/2016 that revealed an antral ulcer, moderate nonerosive gastritis, nonerosive duodenitis, reflux esophagitis, atrophic- appearing small bowel folds, etc. with planned outpatient follow-up to review biopsy results etc. An echocardiogram was also performed on 05/06/2016 that revealed a normal-sized left ventricle with mild left ventricular hypertrophy, moderately decreased systolic function with severe anterior, mid to distal anteroseptal, and septal hypokinesis with an estimated ejection fraction of 30%, a mildly dilated right ventricle normal function, normal atrial size, structurally normal mitral, tricuspid, and pulmonic valves, moderately thickened aortic valve, a trace pericardial effusion, and a normal size aortic root. The Doppler portion of the study revealed physiologic mitral, tricuspid, pulmonic regurgitation, and moderate aortic stenosis, trace aortic regurgitation, moderate pulmonary hypertension with an estimated PA systolic pressure of 53 mmHg, and a normal appearing left ventricular inflow pattern for age. Allergies/Medications Allergies: Coded Allergies: NO KNOWN ALLERGIES (06/07/13) Home Med List: Aspirin (Aspirin*) 325 MG TABLET 1 TAB PO DAILY HEART/BLOOD (Reported) Lisinopril/Hydrochlorothiazide (Lisinopril-Hctz 20-25 MG Tab) 20 MG-25 MG TABLET 1 TAB PO DAILY BP (Reported) Review of Systems Review of Systems: A 14 point system review was obtained and was noncontributory, other than as above. 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 MOTHER (leukemia). Psychosocial History Where Do You Live? Home Who Do You Live With? child Services at Home: None Primary Language: Persian Smoking Status: Current Everyday Smoker ETOH Use: denies use Illicit Drug Use: denies illicit drug use Living Will? no Functional Ability ADLs Independent: dressing, eating, toileting, bathing. Ambulation: walker IADLs Independent: telephone. Needs Assist: shopping, housework, food prep, transportation. Exam & Diagnostic Data Vital Signs and I&O Vital Signs Date Time Temp Pulse Resp B/P Pulse O2 O2 Flow FiO2 Ox Delivery Rate 05/08 1900 95 Room Air Room Air 05/08 1600 Room Air 05/08 1525 97.7 116 20 138/92 95 Room Air 05/08 1023 120 144/92 05/08 0922 97 Room Air 05/08 0801 97.8 118 20 164/110 94 Room Air 05/08 0001 98.8 112 20 144/74 94 Room Air 05/08 0000 95 Room Air 05/07 2300 95 Room Air Room Air Intake & Output 05/08 1600 05/08 0800 05/08 0000 05/07 1600 05/07 0800 05/07 0000 Intake Total 760 50 120 240 0 400 Output Total 250 250 275 Balance 760 50 120 -10 -250 125 Intake, Oral 760 50 120 240 0 400 Output, Urine 250 250 275 Physical Exam: Chronically ill-appearing male in no acute distress who appears older than his stated age. Vital signs: See above. HEENT: Normocephalic, atraumatic, EOMI, thoroughly dry mucous membranes. Neck: No JVD, no bruits. Lungs: Decreased breath sounds bilaterally. Heart: S1, S2 with grade 2/6 systolic ejection type murmur best heard near the base. No gallop or rub appreciated. PMI fifth ICS at [facility]. Abdomen: Soft, nontender, positive bowel sounds. Extremities: Clean dry bilateral lower extremity dressings, 1-2+ bilateral lower pozo edema, and clubbing. Labs/Abhay Results: Laboratory Tests 05/08 05/08 0910 0545 Chemistry Sodium (137 - 145 mmol/L) 129 L Potassium (3.5 - 5.1 mmol/L) 4.8 Chloride (98 - 107 mmol/L) 101 Carbon Dioxide (22 - 30 mmol/L) 20 L Anion Gap (5 - 16) 8 BUN (9 - 20 mg/dL) 27 H Creatinine (0.7 - 1.2 mg/dL) 1.4 H Estimated GFR (>60 ml/min) 51 L BUN/Creatinine Ratio (7 - 25 %) 19.3 Hematology CBC w Diff NO MAN DIFF REQ WBC (4.8 - 10.8 /CUMM) 9.5 RBC (4.70 - 6.10 /CUMM) 3.79 L Hgb (14.0 - 18.0 G/DL) 10.9 L Hct (42 - 52 %) 32.9 L MCV (80.0 - 94.0 FL) 86.8 MCH (27.0 - 31.0 PG) 28.8 RDW (11.5 - 14.5 %) 15.4 H Plt Count (130 - 400 /CUMM) 302 MPV (7.4 - 10.4 FL) 6.9 L Gran % (42.2 - 75.2 %) 82.8 H Lymphocytes % (20.5 - 51.1 %) 12.3 L Monocytes % (1.7 - 9.3 %) 3.1 Eosinophils % (0 - 5 %) 0.6 Basophils % (0.0 - 2.0 %) 1.2 Absolute Granulocytes (1.4 - 6.5 /CUMM) 7.8 H Absolute Lymphocytes (1.2 - 3.4 /CUMM) 1.2 Absolute Monocytes (0.10 - 0.60 /CUMM) 0.3 Absolute Eosinophils (0.0 - 0.7 /CUMM) 0.1 Absolute Basophils (0.0 - 0.2 /CUMM) 0.1 PUBS MCHC (33.0 - 37.0 G/DL) 33.2 05/07 05/06 1115 2055 Chemistry Sodium (137 - 145 mmol/L) 129 L 128 L Potassium (3.5 - 5.1 mmol/L) 4.6 4.3 Chloride (98 - 107 mmol/L) 99 99 Carbon Dioxide (22 - 30 mmol/L) 22 23 Anion Gap (5 - 16) 9 6 BUN (9 - 20 mg/dL) 23 H 26 H Creatinine (0.7 - 1.2 mg/dL) 1.3 H 1.2 Estimated GFR (>60 ml/min) 56 L > 60 BUN/Creatinine Ratio (7 - 25 %) 17.7 21.7 Magnesium (1.6 - 2.3 mg/dL) 1.8 1.8 Hematology CBC w Diff NO MAN DIFF REQ WBC (4.8 - 10.8 /CUMM) 8.5 RBC (4.70 - 6.10 /CUMM) 4.00 L Hgb (14.0 - 18.0 G/DL) 11.6 L Hct (42 - 52 %) 34.5 L MCV (80.0 - 94.0 FL) 86.3 MCH (27.0 - 31.0 PG) 29.0 RDW (11.5 - 14.5 %) 14.8 H Plt Count (130 - 400 /CUMM) 320 MPV (7.4 - 10.4 FL) 6.3 L Gran % (42.2 - 75.2 %) 81.8 H Lymphocytes % (20.5 - 51.1 %) 12.2 L Monocytes % (1.7 - 9.3 %) 5.2 Eosinophils % (0 - 5 %) 0.2 Basophils % (0.0 - 2.0 %) 0.6 Absolute Granulocytes (1.4 - 6.5 /CUMM) 7.0 H Absolute Lymphocytes (1.2 - 3.4 /CUMM) 1.0 L Absolute Monocytes (0.10 - 0.60 /CUMM) 0.4 Absolute Eosinophils (0.0 - 0.7 /CUMM) 0 Absolute Basophils (0.0 - 0.2 /CUMM) 0.1 PUBS MCHC (33.0 - 37.0 G/DL) 33.6 Diagnostic Data EKG Results (05/04/2016) sinus rhythm, borderline first-degree atrioventricular block, left anterior fascicular block, and right bundle-branch block with nondiagnostic repolarization abnormalities. CXR Results (05/03/2016) Nonspecific opacities at the left lung base most likely reflect atelectasis, although early consolidation could appear similarly. Other Results Chest CT (05/03/2016) No infiltrate. Findings of chronic emphysema and fibrosis. Pathologically enlarged mediastinal lymph nodes. Differential diagnosis includes potentially aggressive lesions including lymphoma or metastatic disease. Granulomatous disease can also appear this way. Esophageal wall thickening and debris within the esophagus as above. Consider endoscopy or esophagram for further evaluation. CT abdomen/pelvis (05/03/2016) No acute imaging findings within the abdomen or pelvis. There is no imaging evidence of pancreatitis in this patient who presents for evaluation of pancreatitis. Sigmoid colon diverticulosis without diverticulitis. The previously ruptured infrarenal abdominal aortic aneurysm has been treated with an aortoiliac stent graft and the [place] abdominal aorta has decreased in size compared to 06/07/2013. Head CT (05/03/2016) Limited exam. No definite acute infarct or hemorrhage. Consider follow-up as warranted clinically. Assessment/Plan Assessment/Plan 66-year-old male with a history of long-standing tobacco use, COPD, hypertension, cardiac conduction disease (LAFB, RBBB), strong family history of coronary artery disease (father's first WA in his 50s, brother succumbed to an WA at 45 years), vascular disease (s/p AAA repair) and CKD who was admitted on 05/03/2016 with altered mental status, necrotic bilateral lower extremity skin ulcerations, and melena with evidence of DELORIS with hyperkalemia and hyponatremia who we are asked to evaluate and help manage in regard to his known cardiac issues, as well as, the discovery during this hospitalization of at least moderate range aortic stenosis and a moderate range cardiomyopathy. The patient now has documented cardiac valvular and conduction disease, as well as, a newly diagnosed cardiomyopathy and is clearly at risk for coronary artery disease. He fortunately, has improved significantly during this hospitalization, but could clearly benefit from an outpatient assessment for ischemic heart disease with pharmacologic stress testing while efforts continue for risk reduction. Agree with statin and beta eliazar therapy and would discuss his suitability for future URSULA inhibitor or angiotensin receptor eliazar therapy with nephrology. Would also discuss his future suitability for antiplatelet therapy if ischemia is documented on stress testing with gastroenterology. Further recommendations will follow, Thank you. Consult Acknowledgment - Thank you for your consult request.
[2016-05-08 23:06] VITALS: BP 124/88
[2016-05-09 05:55] LABS: ABSOLUTE BASOPHIL COUNT 0.1 /CUMM (0.0-0.2); ABSOLUTE EOSINOPHIL COUNT 0.1 /CUMM (0.0-0.7); ABSOLUTE LYMPH COUNT 1.3 /CUMM (1.2-3.4); ABSOLUTE MONOCYTE COUNT 0.4 /CUMM (0.10-0.60); BASOPHIL % 0.7 % (0.0-2.0); EOSINOPHIL % 0.8 % (0-5); GRANULOCYTE % 82.8 % (42.2-75.2); MEAN CORPUSCULAR HGB 28.9 PG (27.0-31.0); MEAN CORPUSCULAR HGB CONC 32.9 G/DL (33.0-37.0); MEAN CORPUSCULAR VOLUME 87.8 FL (80.0-94.0); MEAN PLATELET VOLUME 6.4 FL (7.4-10.4); PLATELET COUNT 313 /CUMM (130-400); RBC DISTRIBUTION WIDTH 15.3 % (11.5-14.5); RED BLOOD CELL CT 3.99 /CUMM (4.70-6.10); WHITE BLOOD CELL COUNT 10.8 /CUMM (4.8-10.8)
--- NOTE | 2016-05-09 07:35 | PN- Housestaff ---
SANJAY AYOUB,GE 05/09/16 0734: Subjective Follow-up For: HFrEF Chronic BLE ulcers Hyponatremia DELORIS on CKD Suspected upper GI bleed Subjective: No acute events overnight. Patient seen and examined this morning. He complains of thirst. He has minimal pain in his legs. Review of Systems Constitutional: Denies: chills, fever. Cardiovascular: Denies: chest pain. Respiratory: Denies: cough, short of breath. Gastrointestinal: Denies: abdominal pain, constipation, diarrhea, nausea, vomiting. Objective Last 24 Hrs of Vital Signs/I&O Vital Signs Date Time Temp Pulse Resp B/P Pulse O2 O2 Flow FiO2 Ox Delivery Rate 05/09 0957 106 144/92 05/09 0742 97.6 112 20 162/110 95 Room Air 05/08 2306 97.9 103 20 124/88 96 Room Air 05/08 2053 96 126/88 05/08 1900 95 Room Air Room Air 05/08 1600 Room Air 05/08 1525 97.7 116 20 138/92 95 Room Air 05/08 1023 120 144/92 Intake & Output 05/09 1600 05/09 0800 05/09 0000 Intake Total 60 170 Output Total Balance 60 170 Intake, IV 10 Intake, Oral 50 170 Physical Exam General Appearance: Alert, Oriented X3, No Acute Distress HEENT: Dry mucous membranes Cardiovascular: Regular Rate, Normal S1, Normal S2 Lungs: Clear to Auscultation Abdomen: Soft, No Tenderness, Positive Bowel Sounds Extremities: No Clubbing, No Cyanosis, BLE with Dressing in Place Current Medications: Current Medications Sig/Fidelina Start time Last Medication Dose Route Stop Time Status Admin Albuterol Sulfate 3 ML Q4P PRN 05/06 1315 AC 05/07 INH 0905 Atorvastatin Calcium 80 MG 1700 05/04 1700 AC 05/08 PO 1647 Heparin Sodium 5,000 UNIT Q8 05/03 2200 AC 05/09 (Porcine) SC 0520 Ipratropium [place] 2.5 ML Q4P PRN 05/06 1315 AC 05/07 INH 0905 Magnesium Oxide 400 MG ONE ONE 05/09 0745 DC 05/09 PO 05/09 0746 0957 Metoprolol Tartrate 12.5 MG BID 05/08 1000 AC 05/09 PO 0957 Omeprazole 40 MG BID 05/07 1142 AC 05/09 PO 0956 Silver Sulfadiazine 1 JONA BID 05/09 1000 AC 05/09 TOP 0957 Sodium Chloride 3,000 MG TID 05/04 2200 AC 05/09 PO 0955 Last 24 Hrs of Lab/Abhay Results Last 24 Hrs of Labs/Mics: Laboratory Tests 05/09/16 0520: Anion Gap 9, Estimated GFR 44 L, BUN/Creatinine Ratio 20.0, Magnesium 1.9, CBC w Diff NO MAN DIFF REQ, RBC 3.99 L, MCV 87.8, MCH 28.9, RDW 15.3 H, MPV 6.4 L , Gran % 82.8 H, Lymphocytes % 12.4 L, Monocytes % 3.3, Eosinophils % 0.8, Basophils % 0.7, Absolute Granulocytes 9.0 H, Absolute Lymphocytes 1.3, Absolute Monocytes 0.4, Absolute Eosinophils 0.1, Absolute Basophils 0.1, PUBS MCHC 32.9 L Orders Miscellaneous Findings: Lower extremity arterial PVR testing (05/09): Brachial indexes: RIGHT: Thigh 0.55, Calf 0.57, Ankle-DP 0.54 LEFT: Thigh 0.55, Calf 0.59, Ankle-DP 0.43 Assessment/Plan Assessment: 66 y/o M with PMHx of HTN, COPD and CKD who presented with AMS and melena, found to have hyperkalemia (now resolved) and hyponatremia, DELORIS on CKD and BLE necrotic ulcers, s/p EGD with gastric ulcer s/p biopsies, with ECHO showing LVEF of 30%. Awaiting STR placement. #HFrEF: ECHO with LVEF of 30%, moderate aortic stenosis and moderate pulmonary HTN. No prior diagnosis of CHF. Per Cardiology, patient is at significant risk for CAD given his recently documented cardiac valvular and conduction disease and would benefit brom outpatient risk assessment with pharmacologic stress testing. * Cardiology following. Appreciate their recs. * Continue metoprolol 12.5 mg PO BID and atorvastatin 80 mg PO QD. * Consider starting lisinopril or ARB upon improvement of renal function. #BLE necrotic ulcers: Lower extremity arterial perfusion testing significant for PAD with ABIs ranging from 0.40-0.60. * Vascular surgery following. Appreciate their recs. * Continue local wound care and leg elevation. * Will give instructions to follow up with [facility] on discharge. * Continue to monitor off abx. * Await Vascular input on whether revascularization is warranted based on results. #Hyponatremia: Na 118 on initial presentation. Most likely secondary to thiazide use although cannot rule out SIADH. Na further improved to 132 today. * Fluid restriction and sodium tablets discontinued given elevation in creatinine which could be secondary to dehydration. * Continue to monitor Na. #DELORIS on CKD stage III: Likely pre-renal. Slight elevation in creatinine to 1.6 today, most likely due to dehydration. * Will give outpatient referral to Nephrology on discharge. * Continue to hold diuretics. * Fluid restriction and sodium tablets discontinued per above. * Continue to monitor daily BMPs. #Suspected upper GI bleed: S/p EGD significant for norerosive esophagitis, gastritis and duodenitis, 1 cm antral ulcer and atropic small bowel folds, s/p biopsies. H&H stable. * Continue omeprazole 40 mg PO BID x 2 weeks followed by daily dosing. * Will follow up with GI as outpatient for biopsy results. * Notify GI if there are any signs of overt GI bleeding. * Avoid NSAIDs. * Per GI, if biopsies of the ulcer are benign, patient should have repeat EGD in 2 months to confirm healing and rule out underlying malignancy. * Continue to monitor H/H daily. #Pressure ulcer: Stage 2 pressure ulcer on buttock present on admission, as well as multiple areas of deep tissue injury on thighs and buttocks. * Management per wound care team. * Apply silvadene ointment and xeroform dressing to left buttocks. Diet: Heart Healthy DVT PPx: HSQ CODE: DNR/DNI Problem List: 1. HFrEF (heart failure with reduced ejection fraction) 2. Acute renal failure superimposed on stage 3 chronic kidney disease 3. Chronic ulcer of leg 4. Gastric ulcer 5. Hyponatremia 6. Gastritis determined by endoscopy 7. Gastritis and duodenitis 8. Esophagitis determined by endoscopy 9. Peripheral vascular disease 10. Pressure ulcer Pain Ratin Pain Location: N/A Pain Goal: Remain pain free Pain Plan: None Tomorrow's Labs & Rationales: CBC to monitor H/H in the setting of anemia BMP and Mg to monitor lytes and kidney function in the setting of DELORIS on CKD SONIA LUGO MD 05/09/16 1111: Attending Review Statement Attending Statement Attending MD Statement: examined this patient, discuss w/resident/PA/INTERNET SECURITY SPECIALIST, agreed w/resident/PA/INTERNET SECURITY SPECIALIST, reviewed EMR data (avail) Attending Assessment/Plan: 66M PMH HTN, severe COPD, history of ruptured AAA s/p stent, PVD with bilateral chronic ulcers, CKD stage 4, admitted with melena, pallor, confusion. Found to have hyponatremia at 118, hyperkalemia and acute on chronic kidney injury due to diuretic and ACEi. Underwent endoscopy which found clean base gastric antrum ulcer. Mental status improved today, patient is cooperative and calm with no complaints. 1. Gastric ulcer on EGD 2. Acute on chronic kidney injury stage 4 3. Hyponatremia 4. Hyperkalemia (resolved) 5. Bilateral chronic LE ulcers 6. PVD Plan - Discontinue telemetry - Follow nephrology recommendations - Creatinine is rising, will stop fluid restriction for now, hold salt tabs, recheck creatinine tomorrow - Hold starting ACEi until creatinine improves - PPI BID - Continue home medications - Continue to work with PT - Patient requires assistance with ambulation and would benefit from STR. Given insurance status placement may be a problem. Patient will remain inpatient until then. Can downgrade to general medicine floor. - PVR done, vascular will follow up
[2016-05-09 07:42] VITALS: BP 162/110
--- NOTE | 2016-05-09 12:02 | PN- Infect Dx ---
Subjective Subjective: Afebrile without complaints Objective Last 24 Hrs of Vital Signs/I&O Vital Signs Date Time Temp Pulse Resp B/P Pulse O2 O2 Flow FiO2 Ox Delivery Rate 05/09 0957 106 144/92 05/09 0742 97.6 112 20 162/110 95 Room Air 05/08 2306 97.9 103 20 124/88 96 Room Air 05/08 2053 96 126/88 05/08 1900 95 Room Air Room Air 05/08 1600 Room Air 05/08 1525 97.7 116 20 138/92 95 Room Air Intake & Output 05/09 1600 05/09 0800 05/09 0000 Intake Total 60 170 Output Total Balance 60 170 Intake, IV 10 Intake, Oral 50 170 Physical Exam Other Physical Findings: He appears comfortable in no acute distress Lungs are clear Heart regular rhythm with a 2/6 systolic ejection murmur Extremities both legs with dressings intact Results Last 24 Hours of Lab Results: Laboratory Tests 05/09 0520 Chemistry Sodium (137 - 145 mmol/L) 132 L Potassium (3.5 - 5.1 mmol/L) 5.0 Chloride (98 - 107 mmol/L) 104 Carbon Dioxide (22 - 30 mmol/L) 20 L Anion Gap (5 - 16) 9 BUN (9 - 20 mg/dL) 32 H Creatinine (0.7 - 1.2 mg/dL) 1.6 H Estimated GFR (>60 ml/min) 44 L BUN/Creatinine Ratio (7 - 25 %) 20.0 Magnesium (1.6 - 2.3 mg/dL) 1.9 Hematology CBC w Diff NO MAN DIFF REQ WBC (4.8 - 10.8 /CUMM) 10.8 RBC (4.70 - 6.10 /CUMM) 3.99 L Hgb (14.0 - 18.0 G/DL) 11.5 L Hct (42 - 52 %) 35.0 L MCV (80.0 - 94.0 FL) 87.8 MCH (27.0 - 31.0 PG) 28.9 RDW (11.5 - 14.5 %) 15.3 H Plt Count (130 - 400 /CUMM) 313 MPV (7.4 - 10.4 FL) 6.4 L Gran % (42.2 - 75.2 %) 82.8 H Lymphocytes % (20.5 - 51.1 %) 12.4 L Monocytes % (1.7 - 9.3 %) 3.3 Eosinophils % (0 - 5 %) 0.8 Basophils % (0.0 - 2.0 %) 0.7 Absolute Granulocytes (1.4 - 6.5 /CUMM) 9.0 H Absolute Lymphocytes (1.2 - 3.4 /CUMM) 1.3 Absolute Monocytes (0.10 - 0.60 /CUMM) 0.4 Absolute Eosinophils (0.0 - 0.7 /CUMM) 0.1 Absolute Basophils (0.0 - 0.2 /CUMM) 0.1 PUBS MCHC (33.0 - 37.0 G/DL) 32.9 L Last 24 Hours of Abhay Results: No recent cultures Assessment/Plan Impression: Stable off antibiotics with temperatures and white blood cell count remaining normal. His lower extremity ulcerations are necrotic and may warrant debridement, but he has no evidence of cellulitis and, with temperatures and white blood cell count normal, he can continue to be followed off antibiotics. Results of recent upper endoscopy noted with an antral ulcer, gastritis and duodenitis noted. Suggestion: 1. Further evaluation and management of his lower extremity ulcers per Vascular surgery 2. Continue to follow off antibiotics Will no longer follow at this time, but please call with any questions
[2016-05-09 16:02] VITALS: BP 138/98
[2016-05-09 19:49] VITALS: BP 130/90
[2016-05-09 20:00] VITALS: BP 130/90
--- NOTE | 2016-05-09 21:05 | Transfer of Care Summary ---
Hospital Course Course Hospital Course: 66 y/o M with PMHx of HTN, COPD, CKD stage 3, infrarenal AAA s/p rupture follwing repair (2013) stage who was BIBA for acute onset of confusion, weakness and pallor as well as melena x 3 days. Patient had not been taking his medications for more than 3 months. On initial presentation, patient was afebrile and hemodynamically stable. He desatted to 90-91% on room air and was placed on 3 L NC. On exam, he had extensive necrotic lesions of BLE which had started originally started with swelling about 3 weeks ago per his son, followed by blistering and erythema to which patient had applied topical cream. Labs were remarkable for marked hyponatremia and hyperkalemia with Na 118 and K 7.2 and BUN/creatinine 54/1.7 (baseline 1.5) as well as elevated amylase 158 and lipase 799 with mild elevation in LFTs, AST 66, ALT 76 and alkaline phosphatase 220. EKG showed SR with RBBBB and LAFB as well as prolonged QTc interval. CXR revealed nonspecific opacities at the left lung base, most likely reflecting atelectasis. CT Abdomen/Pelvis revealed no acute findings including no evidence of pancreatitis. Patient was admitted to the ICU for altered mental status in the setting of severe hyponatremia. Below are the issues that were actively addressed during current admission: Significant Procedures: EGD with biopsy (05/07/16) Assessment/Plan: #AMS 2/2 hyponatremia: #Suspected upper GI bleed: Patient underwent EGD on 05/07 which was significant for norerosive esophagitis, gastritis and duodenitis, 1 cm antral ulcer and atropic small bowel folds, s/p biopsies. H&H stable. * Continue omeprazole 40 mg PO BID x 2 weeks followed by daily dosing. * Will follow up with GI as outpatient for biopsy results. * Notify GI if there are any signs of overt GI bleeding. * Avoid NSAIDs. * Per GI, if biopsies of the ulcer are benign, patient should have repeat EGD in 2 months to confirm healing and rule out underlying malignancy. * Continue to monitor H/H daily. #HFrEF: An ECHO was performed with LVEF of 30%, moderate aortic stenosis and moderate pulmonary HTN. No prior diagnosis of CHF. Per Cardiology, patient is at significant risk for CAD given his recently documented cardiac valvular and conduction disease and would benefit brom outpatient risk assessment with pharmacologic stress testing. * Cardiology following. Appreciate their recs. * Continue metoprolol 12.5 mg PO BID and atorvastatin 80 mg PO QD. * Consider starting lisinopril or ARB upon improvement of renal function. #BLE necrotic ulcers: Lower extremity arterial perfusion testing significant for PAD with ABIs ranging from 0.40-0.60. * Vascular surgery following. Appreciate their recs. * Continue local wound care and leg elevation. * Will give instructions to follow up with [facility] on discharge. * Continue to monitor off abx. * Await Vascular input on whether revascularization is warranted based on results. #Hyponatremia: Na 118 on initial presentation. Most likely secondary to thiazide use although cannot rule out SIADH. Na further improved to 132 today. * Fluid restriction and sodium tablets discontinued given elevation in creatinine which could be secondary to dehydration. * Continue to monitor Na. #DELORIS on CKD stage III: Likely pre-renal. Slight elevation in creatinine to 1.6 today, most likely due to dehydration. * Will give outpatient referral to Nephrology on discharge. * Continue to hold diuretics. * Fluid restriction and sodium tablets discontinued per above. * Continue to monitor daily BMPs. #Pressure ulcer: Stage 2 pressure ulcer on buttock present on admission, as well as multiple areas of deep tissue injury on thighs and buttocks. * Management per wound care team. * Apply silvadene ointment and xeroform dressing to left buttocks. Diet: Heart Healthy DVT PPx: HSQ CODE: DNR/DNI
[2016-05-09 23:43] VITALS: BP 138/86
[2016-05-10] VITALS: BP 138/86
[2016-05-10 07:59] LABS: ABSOLUTE BASOPHIL COUNT 0.1 /CUMM (0.0-0.2); ABSOLUTE EOSINOPHIL COUNT 0.1 /CUMM (0.0-0.7); ABSOLUTE GRANULOCYTE CT 7.2 /CUMM (1.4-6.5); ABSOLUTE MONOCYTE COUNT 0.5 /CUMM (0.10-0.60); BASOPHIL % 0.7 % (0.0-2.0); EOSINOPHIL % 1.1 % (0-5); GRANULOCYTE % 72.7 % (42.2-75.2); HEMATOCRIT 35.2 % (42-52); MEAN CORPUSCULAR HGB 28.8 PG (27.0-31.0); MEAN CORPUSCULAR HGB CONC 33.1 G/DL (33.0-37.0); MEAN CORPUSCULAR VOLUME 86.9 FL (80.0-94.0); PLATELET COUNT 306 /CUMM (130-400); RBC DISTRIBUTION WIDTH 15.6 % (11.5-14.5); RED BLOOD CELL CT 4.05 /CUMM (4.70-6.10)
--- NOTE | 2016-05-10 11:00 | PN- Housestaff ---
Subjective Follow-up For: Chronic lower extremity ulcers DELORIS on CKD Subjective: Seen and examined patient. Offers no complaints. Denies fever, shortness breath. Review of Systems Constitutional: Denies: chills, diaphoresis, fever, malaise, weakness, unexplained weight loss. Cardiovascular: Denies: chest pain, edema, orthopena, palpitations, peripheral edema, syncope. Respiratory: Denies: cough, hemoptysis, orthopnea, short of breath, sputum production, stridor, wheezing. Objective Last 24 Hrs of Vital Signs/I&O Vital Signs Date Time Temp Pulse Resp B/P Pulse O2 O2 Flow FiO2 Ox Delivery Rate 05/10 1016 97 138/86 05/10 0827 97 Room Air 05/10 0000 97.4 97 20 138/86 05/09 2343 97.4 97 20 138/86 96 Room Air 05/09 2200 95 Room Air 05/09 2116 100 140/90 05/09 2000 97.3 104 20 130/90 05/09 1949 97.3 104 20 130/90 95 Room Air 05/09 1602 98.5 105 20 138/98 96 Room Air 05/09 1521 Room Air Room Air 05/09 1512 Room Air Room Air Intake & Output 05/10 1600 05/10 0800 05/10 0000 Intake Total 360 Output Total Balance 360 Intake, Oral 360 Number 1 Bowel Movements Physical Exam General Appearance: Alert, Oriented X3, Cooperative, No Acute Distress Cardiovascular: Regular Rate, Normal S1, Normal S2 Lungs: Clear to Auscultation, Normal Air Movement Abdomen: Soft, No Tenderness Extremities: necrotic skin changes Current Medications: Current Medications Sig/Fidelina Start time Last Medication Dose Route Stop Time Status Admin Albuterol Sulfate 3 ML Q4P PRN 05/06 1315 AC 05/07 INH 0905 Aspirin 81 MG DAILY 05/09 1050 DC PO Atorvastatin Calcium 80 MG 1700 05/04 1700 AC 05/09 PO 1544 Heparin Sodium 5,000 UNIT Q8 05/03 2200 AC 05/10 (Porcine) SC 0536 Ipratropium [place] 2.5 ML Q4P PRN 05/06 1315 AC 05/07 INH 0905 Metoprolol Tartrate 12.5 MG BID 05/08 1000 AC 05/10 PO 1016 Omeprazole 40 MG BID 05/07 1142 AC 05/10 PO 1016 Silver Sulfadiazine 1 JONA BID 05/09 1000 AC 05/10 TOP 1017 Sodium Chloride 1,000 ML Q13H 05/10 0945 AC 05/10 IV 05/10 2244 1017 Sodium Chloride 3,000 MG TID 05/04 2200 DC 05/09 PO 0955 Sodium Polystyrene 120 ML ONCE ONE 05/10 0945 DC 05/10 Sulfonate PO 05/10 0946 1037 Last 24 Hrs of Lab/Abhay Results Last 24 Hrs of Labs/Mics: Laboratory Tests 05/10/16 0715: Anion Gap 7, Estimated GFR 38 L, BUN/Creatinine Ratio 20.6, Magnesium 2.0, CBC w Diff NO MAN DIFF REQ, RBC 4.05 L, MCV 86.9, MCH 28.8, RDW 15.6 H, MPV 7.0 L , Gran % 72.7, Lymphocytes % 20.4 L, Monocytes % 5.1, Eosinophils % 1.1, Basophils % 0.7, Absolute Granulocytes 7.2 H, Absolute Lymphocytes 2.0, Absolute Monocytes 0.5, Absolute Eosinophils 0.1, Absolute Basophils 0.1, PUBS MCHC 33.1 Assessment/Plan Assessment: 66 year old gentleman with PMHx of HTN, cardiac conduction disease (LAFB, RBBB), vascular disease (s/p AAA repair), COPD and CKD who presented with AMS and melena, necrotic bilateral lower extremity skin ulcerations, found to have hyperkalemia (now resolved) and hyponatremia, DELORIS on CKD, s/p EGD with gastric ulcer s/p biopsies, with ECHO showing LVEF of 30%. #HFrEF: ECHO with LVEF of 30%, moderate aortic stenosis and moderate pulmonary HTN. No prior diagnosis of CHF. Per Cardiology, patient is at significant risk for CAD given his recently documented cardiac valvular and conduction disease and would benefit brom outpatient risk assessment with pharmacologic stress testing. * Cardiology following. Appreciate their recs. * Continue metoprolol 12.5 mg PO BID and atorvastatin 80 mg PO QD. * will need nephrology clearance to start him on lisinopril or ARB upon improvement of renal function. #BLE necrotic ulcers: Lower extremity arterial perfusion testing significant for PAD with ABIs ranging from 0.40-0.60. * Vascular surgery following. Appreciate their recs. * Continue local wound care and leg elevation. * Will give instructions to follow up with [facility] on discharge. * monitor off abx. #Hyponatremia: likely secondary to thiazide use although cannot rule out SIADH. Na 128 today. * Continue to monitor Na. #DELORIS on CKD stage III: elevation in creatinine to 1.6 today, most likely due to dehydration. * Will give outpatient referral to Nephrology on discharge. * Continue to hold HTCZ * Fluid restriction and sodium tablets discontinued per above. * Continue to monitor daily BMPs. #Upper GI bleed: S/p EGD significant for norerosive esophagitis, gastritis and duodenitis, 1 cm antral ulcer and atropic small bowel folds, s/p biopsies. H&H stable. * Continue omeprazole 40 mg PO BID x 2 weeks followed by daily dosing. * Will follow up with GI as outpatient for biopsy results. * Notify GI if there are any signs of overt GI bleeding. * Avoid NSAIDs. * Per GI, if biopsies of the ulcer are benign, patient should have repeat EGD in 2 months to confirm healing and rule out underlying malignancy. * Continue to monitor H/H daily. #Pressure ulcer: Stage 2 pressure ulcer on buttock present on admission, as well as multiple areas of deep tissue injury on thighs and buttocks. * Management per wound care team. * Apply silvadene ointment and xeroform dressing to left buttocks. Diet: Heart Healthy DVT PPx: HSQ CODE: DNR/DNI Disposition: awaiting STR placement Problem List: 1. Hyponatremia syndrome 2. HFrEF (heart failure with reduced ejection fraction) Pain Ratin Pain Location: na Pain Goal: Pain 4 or less Pain Plan: current regimen Tomorrow's Labs & Rationales: bep
--- NOTE | 2016-05-10 11:49 | PN- Att Addend ---
Attending Addendum Attending Brief Note Patient seen and examined. Plan of care discussed with the medical team and the patient. Available lab work and radiology test reports were reviewed. He was transferred out of ICU last night. Also note was reviewed. Patient sitting in chair this morning and does not report any chest pain difficulty breathing fever or chills nausea vomiting. Vital Signs Date Time Temp Pulse Resp B/P Pulse O2 O2 Flow FiO2 Ox Delivery Rate 05/10 1016 97 138/86 05/10 0827 97 Room Air 05/10 0000 97.4 97 20 138/86 05/09 2343 97.4 97 20 138/86 96 Room Air 05/09 2200 95 Room Air 05/09 2116 100 140/90 05/09 2000 97.3 104 20 130/90 05/09 1949 97.3 104 20 130/90 95 Room Air 05/09 1602 98.5 105 20 138/98 96 Room Air 05/09 1521 Room Air Room Air 05/09 1512 Room Air Room Air Intake & Output 05/10 1600 05/10 0800 05/10 0000 Intake Total 360 Output Total Balance 360 Intake, Oral 360 Number 1 Bowel Movements Exam: General: Patient awake alert oriented without any distress; mouth is dry and skin is dry CVS: S1 plus S2 without any murmur or gallops Chest: Few scattered crepitation without any wheeze. There is no respiratory distress. 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 oriented without any focal neuro deficit and follows command appropriately Extremities: Mild bilateral edema; multiple superficial erosions and wounds noted ; no clubbing or cyanosis noted Laboratory Tests 05/10 0715 Chemistry Sodium (137 - 145 mmol/L) 128 L Potassium (3.5 - 5.1 mmol/L) 5.5 H Chloride (98 - 107 mmol/L) 99 Carbon Dioxide (22 - 30 mmol/L) 23 Anion Gap (5 - 16) 7 BUN (9 - 20 mg/dL) 37 H Creatinine (0.7 - 1.2 mg/dL) 1.8 H Estimated GFR (>60 ml/min) 38 L BUN/Creatinine Ratio (7 - 25 %) 20.6 Magnesium (1.6 - 2.3 mg/dL) 2.0 Hematology CBC w Diff NO MAN DIFF REQ WBC (4.8 - 10.8 /CUMM) 10.0 RBC (4.70 - 6.10 /CUMM) 4.05 L Hgb (14.0 - 18.0 G/DL) 11.7 L Hct (42 - 52 %) 35.2 L MCV (80.0 - 94.0 FL) 86.9 MCH (27.0 - 31.0 PG) 28.8 RDW (11.5 - 14.5 %) 15.6 H Plt Count (130 - 400 /CUMM) 306 MPV (7.4 - 10.4 FL) 7.0 L Gran % (42.2 - 75.2 %) 72.7 Lymphocytes % (20.5 - 51.1 %) 20.4 L Monocytes % (1.7 - 9.3 %) 5.1 Eosinophils % (0 - 5 %) 1.1 Basophils % (0.0 - 2.0 %) 0.7 Absolute Granulocytes (1.4 - 6.5 /CUMM) 7.2 H Absolute Lymphocytes (1.2 - 3.4 /CUMM) 2.0 Absolute Monocytes (0.10 - 0.60 /CUMM) 0.5 Absolute Eosinophils (0.0 - 0.7 /CUMM) 0.1 Absolute Basophils (0.0 - 0.2 /CUMM) 0.1 PUBS MCHC (33.0 - 37.0 G/DL) 33.1 Assessment and problem list Upper gastrointestinal bleed Nonerosive esophagitis Gastritis and duodenitis Antral gastric ulceration Diuretic-induced hyponatremia Altered mental status Heart failure with reduced ejection fraction Moderate aortic stenosis Moderate pulmonary hypertension Necrotic bilateral lower extremity ulcers Acute on chronic kidney injury Stage III CK-MB Mediastinal lymphadenopathy Plan * Kayexalate 1 dose and repeat potassium level this afternoon * Start IV fluid low-dose for acute renal failure; no need for fluid restriction at this point * Continue local wound care on both legs * Issue will need outpatient cardiac workup to rule out underlying coronary disease
[2016-05-10 12:45] VITALS: BP 150/82
--- NOTE | 2016-05-10 15:32 | PN- Cardiology ---
Subjective Subjective: No complaints. Denies any chest discomfort, palpitations, or shortness of breath. States that his lower extremity edema and wounds have improved. Objective Vital Signs and I&Os Vital Signs Date Time Temp Pulse Resp B/P Pulse O2 O2 Flow FiO2 Ox Delivery Rate 05/10 1410 Room Air Room Air 05/10 1405 Room Air Room Air 05/10 1245 97.4 86 20 150/82 93 Room Air 05/10 1016 97 138/86 05/10 0827 97 Room Air 05/10 0000 97.4 97 20 138/86 05/09 2343 97.4 97 20 138/86 96 Room Air 05/09 2200 95 Room Air 05/09 2116 100 140/90 05/09 2000 97.3 104 20 130/90 05/09 1949 97.3 104 20 130/90 95 Room Air 05/09 1602 98.5 105 20 138/98 96 Room Air Intake & Output 05/10 1600 05/10 0800 05/10 0000 05/09 1600 05/09 0800 05/09 0000 Intake Total 600 360 500 60 170 Output Total 200 Balance 400 360 500 60 170 Intake, IV 10 Intake, Oral 600 360 500 50 170 Number 4 1 Bowel Movements Output, Urine 200 Physical Exam: Chronically ill-appearing male in no acute distress who appears older than his stated age. Vital signs: See above. HEENT: Normocephalic, atraumatic, EOMI, thoroughly dry mucous membranes. Neck: No JVD, no bruits. Lungs: Decreased breath sounds bilaterally. Heart: S1, S2 with grade 2/6 systolic ejection type murmur best heard near the base. No gallop or rub appreciated. PMI fifth ICS at [facility]. Abdomen: Soft, nontender, positive bowel sounds. Extremities: Clean dry bilateral lower extremity dressings, 1-2+ bilateral lower pozo edema, and clubbing. Current Medications: Current Medications Sig/Fidelina Start time Last Medication Dose Route Stop Time Status Admin Albuterol Sulfate 3 ML Q4P PRN 05/06 1315 AC 05/07 INH 0905 Atorvastatin Calcium 80 MG 1700 05/04 1700 AC 05/09 PO 1544 Heparin Sodium 5,000 UNIT Q8 05/030 AC 05/10 (Porcine) SC 1307 Ipratropium [place] 2.5 ML Q4P PRN 05/06 1315 AC 12/27 INH 0905 Metoprolol Tartrate 12.5 MG BID 05/08 1000 AC 05/10 PO 1016 Omeprazole 40 MG BID 05/07 1142 AC 05/10 PO 1016 Silver Sulfadiazine 1 JONA BID 05/09 1000 AC 05/10 TOP 1017 Sodium Chloride 1,000 ML Q13H 05/10 0945 AC 05/10 IV 05/10 2244 1017 Sodium Polystyrene 120 ML ONCE ONE 05/10 0945 DC 05/10 Sulfonate PO 05/10 0946 1037 Results Last 48 Hrs of Labs/Mics: Laboratory Tests 05/10/16 0715: Anion Gap 7, Estimated GFR 38 L, BUN/Creatinine Ratio 20.6, Magnesium 2.0, CBC w Diff NO MAN DIFF REQ, RBC 4.05 L, MCV 86.9, MCH 28.8, RDW 15.6 H, MPV 7.0 L , Gran % 72.7, Lymphocytes % 20.4 L, Monocytes % 5.1, Eosinophils % 1.1, Basophils % 0.7, Absolute Granulocytes 7.2 H, Absolute Lymphocytes 2.0, Absolute Monocytes 0.5, Absolute Eosinophils 0.1, Absolute Basophils 0.1, PUBS MCHC 33.1 05/09/16 0520: Anion Gap 9, Estimated GFR 44 L, BUN/Creatinine Ratio 20.0, Magnesium 1.9, CBC w Diff NO MAN DIFF REQ, RBC 3.99 L, MCV 87.8, MCH 28.9, RDW 15.3 H, MPV 6.4 L , Gran % 82.8 H, Lymphocytes % 12.4 L, Monocytes % 3.3, Eosinophils % 0.8, Basophils % 0.7, Absolute Granulocytes 9.0 H, Absolute Lymphocytes 1.3, Absolute Monocytes 0.4, Absolute Eosinophils 0.1, Absolute Basophils 0.1, PUBS MCHC 32.9 L Assessment/Plan Assessment/Plan 66-year-old male with a history of long-standing tobacco use, COPD, hypertension, cardiac conduction disease (LAFB, RBBB), strong family history of coronary artery disease (father's first IL in his 50s, brother succumbed to an IL at 45 years), vascular disease (s/p AAA repair) and CKD who was admitted on 05/03/2016 with altered mental status, necrotic bilateral lower extremity skin ulcerations, and melena with evidence of DELORIS with hyperkalemia and hyponatremia who we are asked to evaluate and help manage in regard to his known cardiac issues, as well as, the discovery during this hospitalization of at least moderate range aortic stenosis and a moderate range cardiomyopathy. The patient now has documented cardiac valvular and conduction disease, as well as, a newly diagnosed cardiomyopathy and is clearly at risk for coronary artery disease. He fortunately, has improved significantly during this hospitalization, but could clearly benefit from an outpatient assessment for ischemic heart disease with pharmacologic stress testing while efforts continue for risk reduction. Agree with statin and beta eliazar therapy and would discuss his suitability for future URSULA inhibitor or angiotensin receptor eliazar therapy with nephrology. Would also discuss his future suitability for antiplatelet therapy if ischemia is documented on stress testing with gastroenterology. Continue present cardiac regimen. Continue telemetry? Not applicable
[2016-05-10 16:00] VITALS: BP 132/92
[2016-05-10 16:36] VITALS: BP 132/92
[2016-05-10 22:00] VITALS: BP 140/84
[2016-05-10 23:40] VITALS: BP 132/96
[2016-05-11] VITALS (7 sets, daily range): BP systolic 132–156; BP diastolic 86–100
--- NOTE | 2016-05-11 08:35 | PN- Housestaff ---
See Addendum Subjective Follow-up For: Chronic lower extremity ulcers DELORIS on CKD Subjective: seen and examined patient offers no complains Review of Systems Constitutional: Denies: chills, diaphoresis, fever, malaise, weakness, unexplained weight loss. Cardiovascular: Denies: chest pain, edema, orthopena, palpitations, peripheral edema, syncope. Respiratory: Denies: cough, hemoptysis, orthopnea, short of breath, sputum production, stridor, wheezing. Objective Last 24 Hrs of Vital Signs/I&O Vital Signs Date Time Temp Pulse Resp B/P Pulse O2 O2 Flow FiO2 Ox Delivery Rate 05/11 1051 74 162/110 05/11 1045 95 Room Air 05/11 0820 98.1 94 20 156/100 95 Room Air 05/11 0800 Room Air Room Air 05/11 0400 97.5 94 20 150/90 05/11 0400 97.5 94 20 150/90 95 Room Air 05/11 0000 97.6 93 20 132/96 05/10 2340 97.6 93 20 132/96 96 Room Air 05/10 2200 95 20 140/84 05/10 2117 95 140/84 05/10 1922 95 Room Air 05/10 1636 97.4 96 21 132/92 95 Room Air 05/10 1600 97.4 96 21 132/92 05/10 1410 Room Air Room Air 05/10 1405 Room Air Room Air Intake & Output 05/11 1600 05/11 0800 05/11 0000 Intake Total 200 1200 Output Total 550 Balance -350 1200 Intake, IV 0 600 Intake, Oral 200 600 Number 0 Bowel Movements Output, Urine 550 Physical Exam General Appearance: Alert, Oriented X3, Cooperative, No Acute Distress Cardiovascular: Normal S1, Normal S2 Lungs: Clear to Auscultation, Normal Air Movement Current Medications: Current Medications Sig/Fidelina Start time Last Medication Dose Route Stop Time Status Admin Albuterol Sulfate 3 ML Q4P PRN 05/06 1315 DC 05/07 INH 0905 Atorvastatin Calcium 80 MG 1700 05/04 1700 AC 05/10 PO 1554 Heparin Sodium 5,000 UNIT Q8 05/03 2200 AC 05/11 (Porcine) SC 1333 Ipratropium [place] 2.5 ML Q4P PRN 05/06 1315 DC 05/07 INH 0905 Metoprolol Tartrate 12.5 MG BID 05/08 1000 AC 05/11 PO 1051 Omeprazole 40 MG BID 05/07 1142 AC 05/11 PO 1051 Silver Sulfadiazine 1 JONA BID 05/09 1000 05/11 TOP 1053 Sodium Chloride 1,000 ML Q13H 05/10 0945 DC 05/10 IV 05/10 2244 1017 Last 24 Hrs of Lab/Abhay Results Last 24 Hrs of Labs/Mics: Laboratory Tests 05/11/16 0750: Anion Gap 7, Estimated GFR 44 L, BUN/Creatinine Ratio 20.0, Magnesium 1.7 05/10/16 1652: Anion Gap 9, Estimated GFR 41 L, BUN/Creatinine Ratio 21.2 Assessment/Plan Assessment: 66 year old gentleman with PMHx of HTN, cardiac conduction disease (LAFB, RBBB), vascular disease (s/p AAA repair), COPD and CKD who presented with AMS and melena, necrotic bilateral lower extremity skin ulcerations, found to have hyperkalemia (now resolved) and hyponatremia, DELORIS on CKD, s/p EGD with gastric ulcer s/p biopsies, with ECHO showing LVEF of 30%. #HFrEF: ECHO with LVEF of 30%, moderate aortic stenosis and moderate pulmonary HTN. No prior diagnosis of CHF. Per Cardiology, patient is at significant risk for CAD given his recently documented cardiac valvular and conduction disease and would benefit brom outpatient risk assessment with pharmacologic stress testing. * Continue metoprolol 12.5 mg PO BID and atorvastatin 80 mg PO QD. * will need nephrology clearance to start him on lisinopril or ARB upon improvement of renal function. #BLE necrotic ulcers: Lower extremity arterial perfusion testing significant for PAD with ABIs ranging from 0.40-0.60. * Vascular surgery following. Appreciate their recs. * Continue local wound care and leg elevation. * Will give instructions to follow up with [facility] on discharge. * monitor off abx. #Hyponatremia: thiazide use VS SIADH. Na 125 today. * Continue to monitor Na. #DELORIS on CKD stage III: creatinine to 1.6 today * Will give outpatient referral to Nephrology on discharge. * Continue to hold HTCZ * Continue to monitor daily BMPs. #Upper GI bleed: S/p EGD significant for norerosive esophagitis, gastritis and duodenitis, 1 cm antral ulcer and atropic small bowel folds, s/p biopsies. H&H stable. * Continue omeprazole 40 mg PO BID x 2 weeks followed by daily dosing. * Will follow up with GI as outpatient for biopsy results. * Notify GI if there are any signs of overt GI bleeding. * Avoid NSAIDs. * patient should have repeat EGD in 2 months to confirm healing and rule out underlying malignancy. * Continue to monitor H/H daily. #Pressure ulcer: Stage 2 pressure ulcer on buttock present on admission, as well as multiple areas of deep tissue injury on thighs and buttocks. * Management per wound care team. * Apply silvadene ointment and xeroform dressing to left buttocks. Diet: Heart Healthy DVT PPx: HSQ CODE: DNR/DNI Disposition: awaiting STR placement Problem List: 1. Hyponatremia syndrome 2. Peripheral vascular disease 3. Ulcers of both lower legs, limited to breakdown of skin 4. HFrEF (heart failure with reduced ejection fraction) 5. Gastritis determined by endoscopy Pain Ratin Pain Location: Not applicable Pain Goal: Pain 4 or less Pain Plan: Current regimen Tomorrow's Labs & Rationales: BEP
[2016-05-12] VITALS (7 sets, daily range): BP systolic 142–150; BP diastolic 86–102
[2016-05-12 08:19] LABS: ABSOLUTE BASOPHIL COUNT 0 /CUMM (0.0-0.2); ABSOLUTE EOSINOPHIL COUNT 0.1 /CUMM (0.0-0.7); ABSOLUTE GRANULOCYTE CT 7.3 /CUMM (1.4-6.5); ABSOLUTE LYMPH COUNT 2.1 /CUMM (1.2-3.4); ABSOLUTE MONOCYTE COUNT 0.3 /CUMM (0.10-0.60); BASOPHIL % 0.4 % (0.0-2.0); GRANULOCYTE % 74.4 % (42.2-75.2); HEMATOCRIT 35.3 % (42-52); MEAN CORPUSCULAR HGB 29.2 PG (27.0-31.0); MEAN CORPUSCULAR HGB CONC 33.6 G/DL (33.0-37.0); MEAN CORPUSCULAR VOLUME 86.8 FL (80.0-94.0); MEAN PLATELET VOLUME 7.7 FL (7.4-10.4); PLATELET COUNT 276 /CUMM (130-400); RBC DISTRIBUTION WIDTH 15.4 % (11.5-14.5); RED BLOOD CELL CT 4.07 /CUMM (4.70-6.10); WHITE BLOOD CELL COUNT 9.8 /CUMM (4.8-10.8)
--- NOTE | 2016-05-12 11:52 | PN- Att Addend ---
Attending Addendum Attending Brief Note 66-year-old male with past medical history significant for hypertension, cardiac conduction disease (RBBB,LAFB), O disease status post abdominal aortic aneurysm repair, COPD, CK D was admitted to the floor for altered mental status, melena, necrotic bilateral lower extremity skin ulcerations, hyperkalemia, hyponatremia, KRUPA on CK D, status post EGD with gastric ulcer and low ejection fraction on echo. Patient was seen and examined on the bedside and denies any complaints presently. He reports that he would wish to go home rather than going to short- term rehabilitation. Vitals are stable, labs reviewed. Cardiology is on board and he would be evaluated further for ischemic heart disease on discharge. Currently patient is stable and is awaiting for placement to short-term rehabilitation. We will continue to treat him on his current regimen until a bed is found in the short-term rehabilitation which has been a challenge on long weekends due to lack of staff and case management.
--- NOTE | 2016-05-12 14:28 | PN- Housestaff ---
Subjective Follow-up For: GI on CK D Necrotic ulcers Low EF on echo Hyponatremia Subjective: Saw patient at bedside this a.m. and spoke with his family. His daughter Kacie Herrera was at bedside. Informed her that no acute intervention was likely due to plate place per attending notes . He is pending placement to STR. Patient did endorse that he would rather go home. Otherwise, no acute overnight events, no complaints. His ulcers are wrapped in bandages and he states his pain is under control. Review of Systems Constitutional: Denies: fever. EENTM: Reports: no symptoms. Cardiovascular: Denies: chest pain, palpitations. Respiratory: Reports: no symptoms. Gastrointestinal: Denies: abdominal pain, bloating. Genitourinary: Reports: no symptoms. Musculoskeletal: Reports: joint swelling, muscle pain, muscle stiffness. Skin: Reports: dryness, lesions. Objective Last 24 Hrs of Vital Signs/I&O Vital Signs Date Time Temp Pulse Resp B/P Pulse O2 O2 Flow FiO2 Ox Delivery Rate 05/12 1211 96 Room Air Room Air 05/12 0957 88 148/90 05/12 0840 97.5 88 18 148/90 93 Room Air 05/12 0600 97.5 86 18 149/86 05/12 0400 97.5 86 18 149/86 05/12 0200 97.5 86 18 149/86 05/12 0000 97.5 86 18 149/86 05/11 2340 97.5 86 20 149/86 95 Room Air 05/11 2200 97.5 90 18 148/100 05/11 2159 97.5 90 18 148/100 05/11 2000 97.8 88 18 144/90 05/11 1713 97.8 88 20 144/90 96 Room Air Intake & Output 05/12 1600 05/12 0800 05/12 0000 Intake Total 240 120 Output Total 500 Balance -260 120 Intake, Oral 240 120 Output, Urine 500 Physical Exam General Appearance: Alert, Oriented X3, Cooperative, No Acute Distress Skin: No Rashes, No Breakdown HEENT: Atraumatic, PERRLA, EOMI Neck: Supple Cardiovascular: Regular Rate, Normal S1, Normal S2 Lungs: Normal Air Movement Abdomen: Soft, No Tenderness Neurological: Normal Speech, Cranial Nerves 3-12 NL Current Medications: Current Medications Sig/Fidelina Start time Last Medication Dose Route Stop Time Status Admin Atorvastatin Calcium 80 MG 1700 05/04 1700 AC 05/11 PO 1655 Heparin Sodium 5,000 UNIT Q8 05/03 2200 AC 05/12 (Porcine) SC 0557 Metoprolol Tartrate 12.5 MG BID 05/08 1000 AC 05/12 PO 0957 Omeprazole 40 MG BID 05/07 1142 AC 05/12 PO 0956 Silver Sulfadiazine 1 JONA BID 05/09 1000 AC 05/12 TOP 0957 Assessment/Plan Assessment: 66 year old gentleman with PMHx of HTN, cardiac conduction disease (LAFB, RBBB), vascular disease (s/p AAA repair), COPD and CKD who presented with AMS and melena, necrotic bilateral lower extremity skin ulcerations, found to have hyperkalemia (now resolved) and hyponatremia, DELORIS on CKD, s/p EGD with gastric ulcer s/p biopsies, with ECHO showing LVEF of 30%. #Hyponatremia: Patient came in with sodium 132, since admission he has had hyponatremia. Today's sodium at 123, yesterday 125. Unsure if etiology of hyponatremia. SIADH versus thiazide use? Patient's mental status is at baseline. He denies any confusion or headache. Interestingly, his chloride is also low along with sodium. Denies any nausea, vomiting, diarrhea. * Continue to monitor Na. * bep * serum osm * uosm * urine sodium, FeNa #HFrEF: ECHO with LVEF of 30%, moderate aortic stenosis and moderate pulmonary HTN. No prior diagnosis of CHF. Per Cardiology, patient is at significant risk for CAD given his recently documented cardiac valvular and conduction disease and would benefit brom outpatient risk assessment with pharmacologic stress testing. * Continue metoprolol 12.5 mg PO BID and atorvastatin 80 mg PO QD. * will need nephrology clearance to start him on lisinopril or ARB upon improvement of renal function. #BLE necrotic ulcers: Lower extremity arterial perfusion testing significant for PAD with ABIs ranging from 0.40-0.60. * Vascular surgery following. Appreciate their recs. * Continue local wound care and leg elevation. * Will give instructions to follow up with Wound Care Clinic on discharge. * monitor off abx. #DELORIS on CKD stage III: creatinine to 1.6 today * Will give outpatient referral to Nephrology on discharge. * Continue to hold HTCZ * Continue to monitor daily BMPs. #Upper GI bleed: S/p EGD significant for norerosive esophagitis, gastritis and duodenitis, 1 cm antral ulcer and atropic small bowel folds, s/p biopsies. H&H stable. * Continue omeprazole 40 mg PO BID x 2 weeks followed by daily dosing. * Will follow up with GI as outpatient for biopsy results. * Notify GI if there are any signs of overt GI bleeding. * Avoid NSAIDs. * patient should have repeat EGD in 2 months to confirm healing and rule out underlying malignancy. * Continue to monitor H/H daily. #Pressure ulcer: Stage 2 pressure ulcer on buttock present on admission, as well as multiple areas of deep tissue injury on thighs and buttocks. * Management per wound care team. * Apply silvadene ointment and xeroform dressing to left buttocks. Diet: Heart Healthy DVT PPx: HSQ CODE: DNR/DNI Disposition: awaiting STR placement Problem List: 1. HFrEF (heart failure with reduced ejection fraction) 2. Chronic ulcer of leg Pain Ratin Pain Location: none Pain Goal: Remain pain free Pain Plan: none Tomorrow's Labs & Rationales: cbc bep
[2016-05-13 08:10] LABS: ABSOLUTE BASOPHIL COUNT 0.1 /CUMM (0.0-0.2); ABSOLUTE EOSINOPHIL COUNT 0.1 /CUMM (0.0-0.7); ABSOLUTE GRANULOCYTE CT 7.3 /CUMM (1.4-6.5); ABSOLUTE LYMPH COUNT 2.2 /CUMM (1.2-3.4); ABSOLUTE MONOCYTE COUNT 0.6 /CUMM (0.10-0.60); EOSINOPHIL % 1.3 % (0-5); GRANULOCYTE % 70.5 % (42.2-75.2); HEMATOCRIT 34.5 % (42-52); MEAN CORPUSCULAR HGB CONC 33.4 G/DL (33.0-37.0); MEAN CORPUSCULAR VOLUME 86.8 FL (80.0-94.0); MEAN PLATELET VOLUME 7.5 FL (7.4-10.4); PLATELET COUNT 278 /CUMM (130-400); RBC DISTRIBUTION WIDTH 15.6 % (11.5-14.5); RED BLOOD CELL CT 3.97 /CUMM (4.70-6.10); WHITE BLOOD CELL COUNT 10.4 /CUMM (4.8-10.8)
[2016-05-13 08:15] VITALS: BP 160/90
--- NOTE | 2016-05-13 12:15 | PN- Att Addend ---
Attending Addendum Attending Brief Note 66-year-old male with past medical history significant for hypertension, cardiac conduction disease (RBBB,LAFB), O disease status post abdominal aortic aneurysm repair, COPD, CK D was admitted to the floor for altered mental status, melena, necrotic bilateral lower extremity skin ulcerations, hyperkalemia, hyponatremia, KRUPA on CK D, status post EGD with gastric ulcer and low ejection fraction on echo. Patient was seen and examined on the bedside and denies any complaints presently. He reports that he would wish to go home rather than going to short- term rehabilitation. Vitals are stable, labs reviewed. Cardiology is on board and he would be evaluated further for ischemic heart disease on discharge. Currently patient is stable and is awaiting for placement to short-term rehabilitation, as suggested by the PT as he still needs assistance and will benefit from STR but the patient wants to go home. We will continue to treat him on his current regimen until a bed is found in the short-term rehabilitation which has been a challenge on long weekends due to lack of staff and case management.
[2016-05-13 16:45] VITALS: BP 142/98
--- NOTE | 2016-05-13 17:22 | Event Note ---
Event Note Event Note: Had a family meeting today with pt, his daughter, and 2 sons. They are frustrated because they would like to know when patient would be discharged. Pt adamently refuses rehab because he has "bills and bank stuff" to deal with at home. If he needs rehab, he will consider it in a few weeks after he gets his "stuff organized at home". He is frustrated that he is being kept in the hospital, and threatened to get a sales coordinator if he is kept here against his will because [place] Of note, pt does not have medical insurance, and his rehab options are limited. I assured them that we will plan further discharge planning pending repeat PT evaluation tomorrow. They would like to be informed as soon as possible when pt will be discharged as all the children have extremely busy work schedule and would ideally need a 1-day notice prior to discharge so that they can prepare for his discharge. Social work consult should be considered.
[2016-05-13 23:29] VITALS: BP 142/86
--- NOTE | 2016-05-14 08:20 | PN- Housestaff ---
CARLOS MANUEL LINDO 05/14/16 0819: Subjective Follow-up For: Chronic lower extremity ulcers DELORIS on CKD Subjective: Seen and examined patient, offers no complaints. Is wishing to leave today Review of Systems Constitutional: Denies: chills, diaphoresis, fever, malaise, weakness, unexplained weight loss. Cardiovascular: Denies: chest pain, edema, orthopena, palpitations, peripheral edema, syncope. Respiratory: Denies: cough, hemoptysis, orthopnea, short of breath, sputum production, stridor, wheezing. Objective Last 24 Hrs of Vital Signs/I&O Vital Signs Date Time Temp Pulse Resp B/P Pulse O2 O2 Flow FiO2 Ox Delivery Rate 05/14 0839 80 140/90 05/14 0821 97.4 80 20 140/90 98 Room Air 05/13 2329 98.0 87 20 142/86 96 05/13 2055 86 142/84 05/13 1645 97.4 84 20 142/98 97 Room Air 05/13 1014 160/90 Intake & Output 05/14 1600 05/14 0800 05/14 0000 Intake Total 240 500 Output Total 1050 Balance -810 500 Intake, Oral 240 500 Output, Urine 1050 Physical Exam General Appearance: Alert, Oriented X3, Cooperative, No Acute Distress Cardiovascular: Regular Rate, Normal S1, Normal S2 Lungs: Clear to Auscultation, Normal Air Movement Extremities: b/l necrotic skin changes with ulcers Current Medications: Current Medications Sig/Fidelina Start time Last Medication Dose Route Stop Time Status Admin Atorvastatin Calcium 80 MG 1700 05/04 1700 AC 05/13 PO 1718 Heparin Sodium 5,000 UNIT Q8 05/03 2200 AC 05/14 (Porcine) SC 0551 Metoprolol Tartrate 12.5 MG BID 05/08 1000 AC 05/14 PO 0839 Omeprazole 40 MG BID 05/07 1142 AC 05/14 PO 0839 Patient Medication 1 ED .STK-MED ONE 05/13 1336 DC Teaching ED 05/13 1337 Silver Sulfadiazine 1 JONA BID 05/09 1000 AC 05/14 TOP 0839 Last 24 Hrs of Lab/Abhay Results Last 24 Hrs of Labs/Mics: Laboratory Tests 05/14/16 0825: Anion Gap 7, Estimated GFR 47 L, BUN/Creatinine Ratio 16.0, CBC w Diff NO MAN DIFF REQ, RBC 4.22 L, MCV 87.9, MCH 29.0, RDW 15.7 H, MPV 7.3 L, Gran % 76.2 H, Lymphocytes % 16.2 L, Monocytes % 5.4, Eosinophils % 1.6, Basophils % 0.6, Absolute Granulocytes 8.3 H, Absolute Lymphocytes 1.8, Absolute Monocytes 0.6, Absolute Eosinophils 0.2, Absolute Basophils 0.1, PUBS MCHC 33.0 Assessment/Plan Assessment: 66 year old gentleman with PMHx of HTN, cardiac conduction disease (LAFB, RBBB), vascular disease (s/p AAA repair), COPD and CKD who presented with AMS and melena, necrotic bilateral lower extremity skin ulcerations, found to have hyperkalemia (now resolved) and hyponatremia, DELORIS on CKD, s/p EGD with gastric ulcer s/p biopsies, with ECHO showing LVEF of 30%. #Hyponatremia: today is 125. SIADH ? thiazide has been discontinued #HFrEF: ECHO with LVEF of 30%, moderate aortic stenosis and moderate pulmonary HTN. No prior diagnosis of CHF. Per Cardiology, patient is at significant risk for CAD given his recently documented cardiac valvular and conduction disease and would benefit from outpatient risk assessment with pharmacologic stress testing. * Continue metoprolol 12.5 mg PO BID and atorvastatin 80 mg PO QD. * will need nephrology clearance to start him on lisinopril or ARB upon improvement of renal function. #BLE necrotic ulcers: Lower extremity arterial perfusion testing significant for PAD with ABIs ranging from 0.40-0.60. * Vascular surgery following. Appreciate their recs. * Continue local wound care and leg elevation. * Will give instructions to follow up with Wound Care Clinic on discharge. * monitor off abx. #DELORIS on CKD stage III: creatinine to 1.6 today * Will give outpatient referral to Nephrology on discharge. * Continue to hold HTCZ * Continue to monitor daily BMPs. #Upper GI bleed: S/p EGD significant for norerosive esophagitis, gastritis and duodenitis, 1 cm antral ulcer and atropic small bowel folds, s/p biopsies. H&H stable. * Continue omeprazole 40 mg PO BID x 2 weeks followed by daily dosing. * Will follow up with GI as outpatient for biopsy results. * Notify GI if there are any signs of overt GI bleeding. * Avoid NSAIDs. * patient should have repeat EGD in 2 months to confirm healing and rule out underlying malignancy. * Continue to monitor H/H daily. #Pressure ulcer: Stage 2 pressure ulcer on buttock present on admission, as well as multiple areas of deep tissue injury on thighs and buttocks. * Management per wound care team. * Apply silvadene ointment and xeroform dressing to left buttocks. Diet: Heart Healthy DVT PPx: HSQ CODE: DNR/DNI Deposition: per PT still requiring STR Problem List: 1. Hyponatremia syndrome 2. HFrEF (heart failure with reduced ejection fraction) 3. Peripheral vascular disease Pain Ratin Pain Location: na Pain Goal: Pain 4 or less Pain Plan: current regimen Tomorrow's Labs & Rationales: SONIA VELEZ MD 05/14/16 1620: Attending MD Review Statement Attending Statement Attending MD Statement: examined this patient, discuss w/resident/PA/ANATOMY PROFESSOR, agreed w/resident/PA/ANATOMY PROFESSOR, reviewed EMR data (avail) Attending Assessment/Plan: 66M PMH HTN, severe COPD, history of ruptured AAA s/p stent, PVD with bilateral chronic ulcers, CKD stage 4, admitted with melena, pallor, confusion. Found to have hyponatremia at 118, hyperkalemia and acute on chronic kidney injury due to diuretic and ACEi. Underwent endoscopy which found clean base gastric antrum ulcer. Mental status improved today, patient is cooperative and calm with no complaints. 1. Gastric ulcer on EGD 2. Acute on chronic kidney injury stage 4 3. Hyponatremia 4. Hyperkalemia (resolved) 5. Bilateral chronic LE ulcers 6. PVD Plan - Follow nephrology recommendations - PPI BID - Continue home medications - Continue to work with PT - Outpatient vascular and wound care follow up - Can be discharged to [facility] when bed is available
[2016-05-14 08:21] VITALS: BP 140/90
[2016-05-14 09:21] LABS: ABSOLUTE BASOPHIL COUNT 0.1 /CUMM (0.0-0.2); ABSOLUTE EOSINOPHIL COUNT 0.2 /CUMM (0.0-0.7); ABSOLUTE GRANULOCYTE CT 8.3 /CUMM (1.4-6.5); ABSOLUTE LYMPH COUNT 1.8 /CUMM (1.2-3.4); ABSOLUTE MONOCYTE COUNT 0.6 /CUMM (0.10-0.60); BASOPHIL % 0.6 % (0.0-2.0); EOSINOPHIL % 1.6 % (0-5); GRANULOCYTE % 76.2 % (42.2-75.2); HEMATOCRIT 37.1 % (42-52); MEAN CORPUSCULAR VOLUME 87.9 FL (80.0-94.0); MEAN PLATELET VOLUME 7.3 FL (7.4-10.4); PLATELET COUNT 336 /CUMM (130-400); RBC DISTRIBUTION WIDTH 15.7 % (11.5-14.5); RED BLOOD CELL CT 4.22 /CUMM (4.70-6.10); WHITE BLOOD CELL COUNT 10.9 /CUMM (4.8-10.8)
[2016-05-14] MEDS ORDERED: METOPROLOL TART25 M1 PO (14:07)
[2016-05-14] MEDS ORDERED: ATORVASTATIN CA80 M1 PO (14:07)
--- NOTE | 2016-05-14 14:07 | Patient Discharge Instructions ---
Discharge Instructions General Discharge Information You were seen/treated for: hyponatremia acute on chronic kidney injury chronic lower extremity ulcers upper GI Bleed Special Instructions: please follow up with your primary care physician within one week of discharge please follow up with wound care clinic upon discharge please follow up with your GI specialist for repeat EGD in 2 months please follow up with superannuation clerk within two weeks of discharge please follow up with cloth finishing range operator chief within two weeks of discharge please follow up with sql developer dba within two weeks of discharge please follow up with vascular surgeon within two weeks of discharge Diet Recommended Diet: Heart Healthy Acute Coronary Syndrome Inclusion Criteria At DC or during hospital stay patient has or had the following: ACS DIAGNOSIS No Discharge Core Measures Meds if any: Prescribed or Continued at Discharge Meds if any: NOT Prescribed or Continued at Discharge Congestive Heart Failure Inclusion Criteria At DC or during hospital stay patient has or had the following: CHF DIAGNOSIS Yes Discharge Core Measures Meds if any: Prescribed or Continued at Discharge URSULA/ARB for EF <40% No Meds if any: NOT Prescribed or Continued at Discharge No URSULA/ARB d/t Medical Contraindication Cerebrovascular accident Inclusion Criteria At DC or during hospital stay patient has or had the following: CVA/TIA Diagnosis No Discharge Core Measures Meds if any: Prescribed or Continued at Discharge Meds if any: NOT Prescribed or Continued at Discharge Venous thromboembolism Inclusion Criteria VTE Diagnosis No VTE Type NONE VTE Confirmed by (Test) NONE Discharge Core Measures - Per Current guidelines, there needs to be overlap - treatment for the first 5 days of Warfarin therapy. - If discharged on Warfarin prior to 5 days of - overlap therapy, the patient will need to be - assessed for post discharge needs including - *Post discharge parental anticoagulation - *Warfarin and/or parental anticoagulation education - *Follow up date to check INR post discharge At least 5 days overlap therapy as Inpatient No Meds if any: Prescribed or Continued at Discharge Note: Overlap Therapy is Warfarin and Anticoagulant Meds if any: NOT Prescribed or Continued at Discharge
[2016-05-14 16:42] VITALS: BP 148/98
[2016-05-14 23:30] VITALS: BP 134/90
--- NOTE | 2016-05-15 07:24 | PN- Housestaff ---
MONYDENISECARLOS MANUEL JERONIMO 05/15/16 0724: Subjective Follow-up For: Chronic lower extremity ulcers with necrotic changes Acute kidney injury on CKD Hyponatremia Subjective: Seen and examined patient. Offers no complaints. Is also refusing STR at this time however a per PT is not safe at home. Review of Systems Constitutional: Denies: see HPI, chills, diaphoresis, fever, malaise, weakness, unexplained weight loss. Cardiovascular: Denies: chest pain, edema, orthopena, palpitations, peripheral edema, syncope. Respiratory: Denies: cough, hemoptysis, orthopnea, short of breath, sputum production, stridor, wheezing. Objective Last 24 Hrs of Vital Signs/I&O Vital Signs Date Time Temp Pulse Resp B/P Pulse O2 O2 Flow FiO2 Ox Delivery Rate 05/15 0914 89 128/84 05/15 0800 97.1 89 20 128/84 95 Room Air 05/14 2330 97.5 83 20 134/90 98 Room Air 05/14 2055 87 147/95 05/14 1642 97.8 87 20 148/98 97 Room Air Intake & Output 05/15 1600 05/15 0800 05/15 0000 Intake Total 500 360 Output Total 1000 200 Balance -500 160 Intake, Oral 500 360 Output, Urine 1000 200 Physical Exam General Appearance: Alert, Oriented X3, Cooperative, No Acute Distress Cardiovascular: Regular Rate, Normal S1, Normal S2 Lungs: Clear to Auscultation, Normal Air Movement Current Medications: Current Medications Sig/Fidelina Start time Last Medication Dose Route Stop Time Status Admin Atorvastatin Calcium 80 MG 1700 05/04 1700 AC 05/14 PO 1612 Heparin Sodium 5,000 UNIT Q8 05/03 2200 AC 05/15 (Porcine) [place] 0523 Metoprolol Tartrate 12.5 MG BID 05/08 1000 AC 05/15 PO 0914 Omeprazole 40 MG BID 05/07 1142 AC 05/15 PO 0914 Silver Sulfadiazine 1 JONA BID 05/09 1000 AC 05/15 TOP 0914 Last 24 Hrs of Lab/Abhay Results Last 24 Hrs of Labs/Mics: Laboratory Tests 05/15/16 0515: Anion Gap 10, Estimated GFR 47 L, BUN/Creatinine Ratio 15.3, Magnesium 1.9 Assessment/Plan Assessment: 66 year old gentleman with PMHx of HTN, cardiac conduction disease (LAFB, RBBB), vascular disease (s/p AAA repair), COPD and CKD who presented with AMS and melena, necrotic bilateral lower extremity skin ulcerations, found to have hyperkalemia (now resolved) and hyponatremia, ADDY on CKD, s/p EGD with gastric ulcer s/p biopsies, with ECHO showing LVEF of 30%. #Hyponatremia: today is 127, on 1 L fluid restriction SIADH ? thiazide has been discontinued #HFrEF: ECHO with LVEF of 30%, moderate aortic stenosis and moderate pulmonary HTN. No prior diagnosis of CHF. Per Cardiology, patient is at significant risk for CAD given his recently documented cardiac valvular and conduction disease and would benefit from outpatient risk assessment with pharmacologic stress testing. * Continue metoprolol 12.5 mg PO BID and atorvastatin 80 mg PO QD. * will need nephrology clearance to start him on lisinopril or ARB upon improvement of renal function. #BLE necrotic ulcers: Lower extremity arterial perfusion testing significant for PAD with ABIs ranging from 0.40-0.60. * Vascular surgery following. Appreciate their recs. * Continue local wound care and leg elevation. * Will give instructions to follow up with Wound Care Clinic on discharge. * monitor off abx. #ADDY on CKD stage III: creatinine to 1.5 today * Will give outpatient referral to Nephrology on discharge. * Continue to hold HTCZ/lisinopril upon discharge * Continue to monitor daily BMPs. #Upper GI bleed: S/p EGD significant for norerosive esophagitis, gastritis and duodenitis, 1 cm antral ulcer and atropic small bowel folds, s/p biopsies. H&H stable. * Continue omeprazole 40 mg PO BID x 2 weeks followed by daily dosing. * Will follow up with GI as outpatient for biopsy results. * Notify GI if there are any signs of overt GI bleeding. * Avoid NSAIDs. * patient should have repeat EGD in 2 months to confirm healing and rule out underlying malignancy. * Continue to monitor H/H daily. #Pressure ulcer: Stage 2 pressure ulcer on buttock present on admission, as well as multiple areas of deep tissue injury on thighs and buttocks. * Management per wound care team. * Apply silvadene ointment and xeroform dressing to left buttocks. Diet: Heart Healthy DVT PPx: HSQ CODE: DNR/DNI Deposition: Patient left AMA despite multiple attempts at explaining the risks of going home versus going to STR Problem List: 1. Hyponatremia syndrome 2. Ulcers of both lower legs, limited to breakdown of skin 3. Peripheral vascular disease 4. Acute renal failure superimposed on stage 3 chronic kidney disease Pain Ratin Pain Location: Not applicable Pain Goal: Pain 4 or less Pain Plan: current regimen Tomorrow's Labs & Rationales: Hyponatremia, addy =BEP SONIA LUGO MD 05/15/16 1458: Attending MD Review Statement Attending Statement Attending MD Statement: examined this patient, discuss w/resident/PA/MANAGER INVENTORY, agreed w/resident/PA/MANAGER INVENTORY, reviewed EMR data (avail) Attending Assessment/Plan: 66M PMH HTN, severe COPD, history of ruptured AAA s/p stent, PVD with bilateral chronic ulcers, CKD stage 4, admitted with melena, pallor, confusion. Found to have hyponatremia at 118, hyperkalemia and acute on chronic kidney injury due to diuretic and ACEi. Underwent endoscopy which found clean base gastric antrum ulcer. Mental status improved today, patient is cooperative and calm with no complaints. 1. Gastric ulcer on EGD 2. Acute on chronic kidney injury stage 4 3. Hyponatremia 4. Hyperkalemia (resolved) 5. Bilateral chronic LE ulcers 6. PVD Plan - Patient has decided to sign out AMA - Will continue all medications - Home PT set up - Outpatient wound care, vascular, podiatry, GI follow up
[2016-05-15 08:00] VITALS: BP 128/84
[2016-05-15 09:14] VITALS: BP 128/84
--- NOTE | 2016-05-15 10:28 | PN- Vascular Surgery ---
Subjective Subjective: Patient seen, doing well. Up in chair without complaints. Review of Systems Constitutional: Denies: chills, fever. Cardiovascular: Denies: chest pain. Gastrointestinal: Denies: abdominal pain. Hematologic/Endocrine: Denies: bleeding. Objective Vital Signs and I&Os BP 128/84, HR 89, T 97.1, 95% room air Physical Exam: Well-developed, well-nourished male, no acute distress Alert and oriented 3 Art regular, lungs clear Abdomen soft nontender Lower extremities: Right: Dry eschar dorsum of foot, with healing superficial wounds; pozo with diffuse eschar without surrounding erythema. Left: Dry eschar dorsum of foot; pozo with diffuse eschar without surrounding erythema Mild foot edema bilateral Assessment/Plan Assessment/Plan #1. Chronic bilateral pozo, foot ulcers. The foot ulcers look significantly better with local wound care. This is promising, suggests adequate perfusion for healing. Bilateral pozo wounds also appeared to be improving without obvious evidence of infection. Continue wound care to bilateral shins. Would allow pozo wounds to heal primarily, without debridement at this point. Recommend outpatient wound clinic follow-up. Problem List: 1. Chronic ulcer of leg Core Measures/Miscellaneous Venous Thromboembolism VTE Risk Factors: Immobility, paresis VTE Contraindications: No Contraindications VTE Prophylaxis Ordered Inpt: Pharm- Heparin VTE Diagnosis: No VTE Type: NONE VTE Confirmed by (Test): NONE Beta Malvin Is Beta Malvin a Home Med? Yes Antibiotics Is Patient on Antibiotics? Yes
== END 2016-05-15 14:20 | disposition home health service (06) | DRG 424 ==
LOC: ERH 18:09 → ERHI 19:49 → 2NB 19:49 → 1NO 19:49 → CRI 23:49 → 1NO 05-06 15:22 → 2NB 05-09 19:35
PROVIDERS: Dermatology; Emergency Medicine; Internal Medicine; Internal Medicine Infectious Disease; Internal Medicine Interventional Cardiology; Ophthalmology; Student in an Organized Health Care Education/Training Program; ADMIT Student in an Organized Health Care Education/Training Program
PROC: 0DB98ZX Excision of Duodenum, Via Natural or Artificial Opening Endoscopic, Diagnostic (ICD-10-PCS; principal; 2016-05-07)
PROC: 0DB68ZX Excision of Stomach, Via Natural or Artificial Opening Endoscopic, Diagnostic (ICD-10-PCS; principal; 2016-05-07)
PROC: 0DB18ZX Excision of Upper Esophagus, Via Natural or Artificial Opening Endoscopic, Diagnostic (ICD-10-PCS; principal; 2016-05-07)
DX: E22.2 Syndrome of inappropriate secretion of antidiuretic hormone (principal); N17.9 Acute kidney failure, unspecified; L89.302 Pressure ulcer of unspecified buttock, stage 2; J84.10 Pulmonary fibrosis, unspecified; N18.3 Chronic kidney disease, stage 3 (moderate); I42.9 Cardiomyopathy, unspecified; L97.229 Non-pressure chronic ulcer of left calf with unspecified severity; L97.219 Non-pressure chronic ulcer of right calf with unspecified severity; K25.3 Acute gastric ulcer without hemorrhage or perforation; J43.9 Emphysema, unspecified; I12.9 Hypertensive chronic kidney disease with stage 1 through stage 4 chronic kidney disease, or unspecified chronic kidney disease; Z72.0 Tobacco use; E66.9 Obesity, unspecified; Z68.29 Body mass index [BMI] 29.0-29.9, adult; E87.5 Hyperkalemia; I73.9 Peripheral vascular disease, unspecified; K29.70 Gastritis, unspecified, without bleeding; I27.2 Other secondary pulmonary hypertension; J44.9 Chronic obstructive pulmonary disease, unspecified; F17.210 Nicotine dependence, cigarettes, uncomplicated; L97.529 Non-pressure chronic ulcer of other part of left foot with unspecified severity; L97.519 Non-pressure chronic ulcer of other part of right foot with unspecified severity; I35.0 Nonrheumatic aortic (valve) stenosis
CPT/HCPCS: 1NSP; 2NBSP; 84133; 84300; CCU; 36415; 74176; 81001; 82436; 82570; 87040; 87070; 87086; 87389; 88305; 88312; 93005; 93010; 93306; 96365; 96375; 97001-GP; 97110-GO; 97112-GO; 97116-GO; 97530-GO; 99291; G0479; G0480; J0456; J0610; J0696; J1644; J1815; J1940; J2930; J3370; J3490; J7040; J7042